=== PATIENT | female | born 1945 | race African-American/Black ===

== ENCOUNTER 2024-09-22 11:37 | Outpatient (AMB) | payer MEDICARE, SELFPAY ==
--- NOTE | 2024-09-22 11:48 | HO.NEPHOV_ITS ---
Vital Signs 09/22/24 11:51 Height 5 ft 5 in Weight 216 lb BMI 35.9 BP 130/60 Blood Pressure Location Rt brachial Position Sitting Pulse 52 Pulse Source Pulse Oximeter Pulse Oximetry (%) 96 Oxygen Delivery Method Room Air Intake Visit Reasons: ENP:CKD- Conf w/Caregiver Household Appliance Assembler Required: No Accompanied by: Other Relationship Allergies amoxicillin [From Augmentin] Allergy (Verified 09/22/24 11:51) Diarrhea clavulanic acid [From Augmentin] Allergy (Verified 09/22/24 11:51) Diarrhea Iodinated Contrast Media Allergy (Verified 09/22/24 11:51) Unknown morphine Allergy (Verified 09/22/24 11:51) Unknown Swuexsi-RMT-EvE Reductase Inhibitor Allergy (Verified 09/22/24 11:51) Unknown HPI Comments Details: I had the privilege of seeing Peyton in consultation for recent rise in serum creatinine on a back drop of CKD. She has H/O vascular dementia as well as DM and HTN. She has been having edema and takes Vitamin C daily. She is on SGLT2i as well as ARB. She does not have any nausea, vomiting, diarrhea, PND, orthopnea or orthostatic symptoms. She does not take NSAID's. She does not maintain good hydration. She does not have any epistaxis, photosensitivity, hematuria, recent antibiotic intake, joint swelling, skin rashes. She does not have any CAD, CVA, CHF or documented PAD. Recently her serum creatinine has gone up to 1.42 [facility] Medical History (Updated 09/22/24 @ 12:07 by Jared Duarte MD) Alzheimer dementia Vascular dementia ERICK (generalized anxiety disorder) Colon polyp Hyperlipidemia Hypertension, benign Hypothyroidism Type 2 diabetes mellitus Cardiac murmur Surgical History (Updated 09/22/24 @ 11:51 by Rebecca Corral MA) H/O lumpectomy History of hysterectomy Family History (Updated 09/22/24 @ 11:49 by Rebecca Corral MA) Mother Hypertension Social History (Updated 09/22/24 @ 11:49 by Rebecca Corral MA) Alcohol intake: former Patient Tobacco Use Status: Former Tobacco user Review of Systems Const All systems reviewed & are unremarkable except as noted in HPI and below Physical Exam Vital Signs: Last Vital Signs Pulse 52 09/22/24 11:51 BP 130/60 09/22/24 11:51 Pulse Ox 96 09/22/24 11:51 Oxygen Delivery Method Room Air 09/22/24 11:51 BMI result Body Mass Index 35.9 Const General: comfortable and no acute distress Orientation/consciousness: patient oriented x3 HEENT Head: Yes normocephalic Mouth: Normal oral and palatal mucosa present Eyes EOM: EOMs intact bilaterally Neck Neck: Yes supple Resp Auscultation: clear to auscultation bilaterally Cardio Jugular venous distension: no JVD Rate: regular rate GI Palpation (GI): Soft to palpation Auscultation: normal bowel sounds General: Yes no CVA tenderness Back/Spine/Pelvis Back: no CVA tenderness Skin General skin exam: no rashes or lesions noted Neuro General: patient oriented x3 and moves all extremities Extrem General: Yes no pedal edema Results Reviewed Nephrology Results: No Data to Display Assessment & Plan Assessment & Plan (1) CKD stage 3a, GFR 45-59 ml/min: Code(s): N18.31 - Chronic kidney disease, stage 3a Category: Medical (2) Hypertension, benign: Code(s): I10 - Essential (primary) hypertension Category: Medical Plan 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 She recently had rise in serum creatinine due to tubular injury due to poor PO intake and being on ARB at the same time. Her UO is good and there is no reason to suspect obstructive uropathy. Even though GN & AIN can be considered in the differentials, it unlikely. She is on ARB as well as semaglutide. She should maintain good hydration. I ordered follow up blood work. Her mild edema could be due to Amlodipine. I shall back off on her ARB if her serum creatinine rises. I did not make any medication changes today but rather discussed all these with her and person who accompanied her. F/U given Orders: Orders Protein Creatinine Ratio, Ur 3 Months N18.31 - Chronic kidney disease, stage 3a, I10 - Essential (primary) hypertension Electrolytes 3 Months N18.31 - Chronic kidney disease, stage 3a, I10 - Essential (primary) hypertension Immunofixation Pnl, Serum 3 Months N18.31 - Chronic kidney disease, stage 3a, I10 - Essential (primary) hypertension Vitamin D 25-OH Total 3 Months N18.31 - Chronic kidney disease, stage 3a, I10 - Essential (primary) hypertension Creatinine 3 Months N18.31 - Chronic kidney disease, stage 3a, I10 - Essential (primary) hypertension Blood Urea Nitrogen 3 Months N18.31 - Chronic kidney disease, stage 3a, I10 - Essential (primary) hypertension Calcium 3 Months N18.31 - Chronic kidney disease, stage 3a, I10 - Essential (primary) hypertension Parathyroid Hormone Intact 3 Months N18.31 - Chronic kidney disease, stage 3a, I10 - Essential (primary) hypertension Coding Level of Care Code New Pt Level 4 (13865) Diagnoses CKD stage 3a, GFR 45-59 ml/min N18.31 Hypertension, benign I10
[2024-09-22 11:51] VITALS: BP 130/60; PULSE 52; O2SAT 96; BMI 35.9
--- OUTSIDE RECORDS SUMMARY | 2024-09-22 14:16 | XMS_ITS | Clinical Summary ---
Author Organization [facility] Address [address] [place] [address] Care Team Providers Care Remote Encoding Center Manager Name Role Phone Juvenal Valadez MD Primary Care Provider [phone] Allergies Active Allergy Reactions Criticality Noted Date Comments Iodinated Contrast Media Rash/Dermatitis Medium 2015 Morphine Rash/Dermatitis Medium 06/05/2016 Medications Medication Sig Dispensed Refills Start Date End Date Status exemestane (AROMASIN) 25 MG tablet Take 25 mg by mouth daily. 2 05/14/2016 Active Multiple Vitamin (MULTIVITAMIN) tablet Take by mouth daily. Active vitamin E 400 UNIT capsule Take 400 Units by mouth daily. Active cholecalciferol (VITAMIN D3) 1000 UNITS tablet Take 1,000 Units by mouth daily. Active Probiotic Product (PROBIOTIC ADVANCED PO) Take by mouth daily. Active cyanocobalamin (VITAMIN B-12) 250 MCG tablet Take 250 mcg by mouth daily. Active levoFLOXacin (LEVAQUIN) 500 MG tablet Take 500 mg by mouth daily. 0 06/18/2016 Active Social History Tobacco Use Types Packs/Day Years Used Date Smoking Tobacco: Former Cigarettes Alcohol Use Standard Drinks/Week Comments No 0 (1 standard drink = 0.6 oz pur e alcohol) Sex and Gender Information Value Date Recorded Sex Assigned at Not on file Gender Identity Not on file Sexual Orientation Not on file Last Filed Vital Signs Vital Sign Reading Time Taken Comments Blood Pressure 176/84 07/06/2016 11:17 AM EST Pulse 62 07/06/2016 11:17 AM EST Temperature 36.5 ??C (97.7 ??F) 07/06/2016 11:[address] Respiratory Rate 18 07/06/2016 11:17 AM EST Oxygen Saturation 97% 07/06/2016 11:17 AM EST Inhaled Oxygen Concentration - - Weight 95.3 kg (210 lb) 07/06/2016 9:00 AM EST Height 166.4 cm (5' 5.5 ) 07/06/2016 9:00 AM EST Body Mass Index 34.41 07/06/2016 9:00 AM EST Plan of Treatment Health Maintenance Due Date Last Done Comments Hepatitis C Virus Screening 1945 DTaP/Tdap/Td Vaccines (1 - Tdap) 1965 Pneumococcal Vaccines 50+ (1 of 1 - PCV) 1996 Zoster (Shingles) Vaccine (1 of 2) 1996 DXA Bone Density (Females,Ages 65 and older) 10/08/2011 RSV Vaccine 60 years and older and Patients (1 - 1-dose 75+ series) 2021 Influenza Vaccine 02/27/2024 COVID-19 Vaccine ( - 2023- season) 2024 Mammogram Discontinued 08/19/2015, 10/0 07/2013, 04/23/2014, Additional history exists Colonoscopy Discontinued 07/06/2016, 07/06/2016 Hepatitis B Vaccines Aged Out No long er eligible based on patient's age to complete this topic Procedures Procedure Name Priority Date/Time Associated Diagnosis Comments DIGITAL MAMMO BILAT SCREENING (WDC)-W Routine 08/19/2015 12:52 PM EST from Last 3 Months or Most Recently Relevant to Health Maintenance Results * DIGITAL MAMMO BILAT SCREENING (WDC)-W (08/19/2015 12:52 PM EST) Anatomical Region Laterality Modality Other 08/19/2015 12:5 2 PM EST Narrative 08/17/2015 2:51 PM EST Final Report CLINICAL INDICATIONS: ?? ROUTINE [facility]012 - DIGITAL MAMMO BILAT SCREENING ??- Aug 17 2015 ??3:03PM ?? Acc#: [id number] RESULT: History: ??ROUTINE Exam: Bilateral digital mammography Comparison: April 28, 2014 studies dating back toS2008 Findings: Full field digital imaging of both breast performed. There is a mixture of fibroglandular tissue present bilaterally (ACR BiRad breast density category B). Within the upper-outer aspect of the right breast middle depththere is an enlarging suspicious looking spiculated mass with pleomorphic microcalcifications measuring approximately 3 x 1.5 cm in size. There is now also seen to be a rounded 6 mm density about the superior aspect of the right breast with the appearance of a possible infiltrated lymph node. Biopsy had been recommended at time of previous diagnostic mammogram of April 2014. No suspicious left breast findings. IMPRESSION: Very suspicious right breast mass for which further evaluation with spot magnification films and ultrasound recommended if patient is candidate for therapy. Radiology staff will contact the patient to obtain this study. BI-RADS 0, incomplete, needs additional imaging. Computer aided diagnostics used for study (CAD) Interpreting Physician: ??KALE GREGORY M.D. Procedure Note Provider, MD Erich - 11/16/2015 Final Report CLINICAL INDICATIONS: ROUTINE [facility]012 - DIGITAL MAMMO BILAT SCREENING - Aug 17 2015 3:03PM Acc#: [id number] RESULT: History: ROUTINE Exam: Bilateral digital mammography Comparison: April 28, 2014 studies dating back 2008 Findings: Full field digital imaging of both breast performed. There is a mixtureof fibroglandular tissue present bilaterally (ACR BiRad breast densitycategory B). Within the upper-outer aspect of the right breast middle depththereis an enlarging suspicious looking spiculated mass with pleomorphic microcalcifications measuring approximately 3 x 1.5 cm in size. There isnow also seen to be a rounded 6 mm density about the superior aspect of theright breast with the appearance of a possible infiltrated lymph node. Biopsyhad been recommended at time of previous diagnostic mammogram of April2014. No suspicious left breast findings. IMPRESSION: Very suspicious right breast mass for which further evaluation with spot magnification films and ultrasound recommended if patient is candidatefor therapy. Radiology staff will contact the patient to obtain this study. BI-RADS 0, incomplete, needs additional imaging. Computer aided diagnostics used for study (CAD) Interpreting Physician: KALE GREGORY M.D. Conversion Provider MD [facility] from Last 3 Months or Most Recently Relevant to Health Maintenance Advance Directives * Full Code (Latest Code Status on File) Date Activated Date Inactivated Comments 07/06/2016 9:25 AM 07/06/2016 2:06 PM Care Teams Remote Encoding Center Manager Relationship Specialty Start Date End Date Juvenal Valadez MD [address] [place] [address] PCP - General Internal Medicine 03/07/16
--- OUTSIDE RECORDS SUMMARY | 2024-09-22 14:16 | XMS_ITS ---
Author Organization [facility] Address [address] [place] [id number] Care Team Providers Care Network Engineer Administrator Name Role Phone JASSIAmberSAMANTHA Primary Care Provider [phone] REASON FOR VISIT Letter Revision Encounters Encounter Location Date Provider Diagnosis [address] [address] 09/03/2024 SAMANTHA HENSON Plan Of Treatment Next Appt Details Provider Name:SAMANTHA HENSON , 11/11/2024 01:15:00 PM, [address] [place] [address], [place], [phone], Progress Notes * MITA MUJICAOB: (78 yo F)Acc No.[id number]:09/03/2024 Patient:?LINDSAY MUJICA :1945???Age:78 Y???Sex:Female Address:[address] [place] [phone] * true * Date:? Generated for Printi virgil/Savanna/eTransmitting on:?09/22/2024 02:16 PM EST
--- OUTSIDE RECORDS SUMMARY | 2024-09-22 14:16 | XMS_ITS ---
Author Organization [facility] Address [address] [place] [id number] Care Team Providers Care Department Clinician Name Role Phone SAMANTHA HENSON Primary Care Provider [phone] REASON FOR VISIT KIDNEY Encounters Encounter Location Date Provider Diagnosis [facility] [address] [address] 08/17/2024 SAMANTHA HENSON Plan Of Treatment Next Appt Details Provider Name:SAMANTHA HENSON , 11/11/2024 01:15:00 PM, [address] [place] [address] [address], [place], [address], Progress Notes * MITA MUJICAOB: (78 yo F)Acc No.[id number]:08/17/2024 Patient:?LINDSAY MUJICA :1945???Age:78 Y???Sex:Female Address:[address] [place] [phone] * true * Date:? Generated for Printi virgil/Savanna/eTransmitting on:?09/22/2024 02:15 PM EST
--- OUTSIDE RECORDS SUMMARY | 2024-09-22 14:16 | XMS_ITS | Encounter Summary ---
Author Organization [facility] Address [address] [place] [address] Care Team Providers Care Tab Builder Name Role Phone Juvenal Valadez MD Primary Care Provider [phone] Encounter Details Date Type Department Care Team (Late st Contact Info) Description 02/09/2016 Scanned Document [facility] General Surgery [place] [phone] Edward Fang MD Social History Tobacco Use Types Packs/Day Years Used Date Smoking Tobacco: Never Assessed Sex and Gender Information Value Date Recorded Sex Assigned at Not on file Gender Identity Not on file Sexual Orientation Not on file documented as of this encounter Plan of Treatment Not on file documented as of this encounter Visit Diagnoses Not on filedocumented in this encounter Care Teams Tab Builder Relationship Specialty Start Date End Date Juvenal Valadez MD [address] [place] [address] PCP - General Internal Medicine 03/07/16 documented as of this encounter
--- OUTSIDE RECORDS SUMMARY | 2024-09-22 14:16 | XMS_ITS | Encounter Summary ---
Author Organization [facility] Address [address] [place] [address] Care Team Providers Care Anthropometrist Name Role Phone Juvenal Valadez MD Primary Care Provider [phone] Encounter Details Date Type Department Care Team (Late st Contact Info) Description 06/05/2016 Prep for Surgery [facility] General Surgery [place] [phone] Edward Fang MD Social History Tobacco Use Types Packs/Day Years Used Date Smoking Tobacco: Never Alcohol Use Standard Drinks/Week Comments Not Asked 0 (1 standard drink = 0.6 oz pur e alcohol) Sex and Gender Information Value Date Recorded Sex Assigned at Not on file Gender Identity Not on file Sexual Orientation Not on file documented as of this encounter Plan of Treatment Not on file documented as of this encounter Visit Diagnoses Not on filedocumented in this encounter Care Teams Anthropometrist Relationship Specialty Start Date End Date Juvenal Valadez MD [address] [place] [address] PCP - General Internal Medicine 03/07/16 documented as of this encounter
--- OUTSIDE RECORDS SUMMARY | 2024-09-22 14:16 | XMS_ITS | Encounter Summary ---
Author Organization [facility] Address [address] [place] [address] Care Team Providers Care Child Care Leader Name Role Phone Juvenal Valadez MD Primary Care Provider [phone] Encounter Details Date Type Department Care Team (Late st Contact Info) Description 08/24/2016 Scanned Document [facility] General Surgery [place] [phone] Edward Fang MD Social History Tobacco Use [...] on filedocumented in this encounter Care Teams Child Care Leader Relationship Specialty Start Date End Date Juvenal Valadez MD [address] [place] [address] PCP - General Internal Medicine 03/07/16 documented as of this encounter
--- OUTSIDE RECORDS SUMMARY | 2024-09-22 14:16 | XMS_ITS | Encounter Summary ---
Author Organization [facility] Address [address] [place] [address] Care Team Providers Care Hydrometeorology Teacher Name Role Phone Juvenal Valadez MD Primary Care Provider Encounter Details Date Type Department Care Team (Late st Contact Info) Description 05/30/2016 Scanned Document [facility] General Surgery [place] [phone] Edward Fang MD Social History Tobacco Use [...] on filedocumented in this encounter Care Teams Hydrometeorology Teacher Relationship Specialty Start Date End Date Juvenal Valadez MD [address] [place] [address] PCP - General Internal Medicine 03/07/16 documented as of this encounter
== END 2024-09-22 12:14 | disposition home or self-care (01) ==
PROVIDERS: PCP Hospitalist; Referring Provider Hospitalist; Visit Provider Internal Medicine Nephrology
DX: N18.31 Chronic kidney disease, stage 3a (principal); I10 Essential (primary) hypertension
CPT/HCPCS: 99204

== ENCOUNTER → 2024-09-22 11:37 | Outpatient (BNVA) | payer MEDICARE, SELFPAY | PROVIDERS: PCP Hospitalist; Referring Provider Hospitalist; Visit Provider Internal Medicine Nephrology | DX: E11.22 Type 2 diabetes mellitus with diabetic chronic kidney disease (principal); I12.9 Hypertensive chronic kidney disease with stage 1 through stage 4 chronic kidney disease, or unspecified chronic kidney disease; N18.31 Chronic kidney disease, stage 3a | CPT/HCPCS: 99202 ==

== ENCOUNTER 2024-12-22 12:06 | Outpatient (AMB) | payer MEDICARE, SELFPAY ==
--- NOTE | 2024-12-22 12:14 | HO.NEPHOV_ITS ---
Vital Signs 12/22/24 12:17 Height 5 ft 5 in Weight 214 lb BMI 35.6 BP 114/60 Blood Pressure Location Lt brachial Position Sitting Pulse 52 Pulse Source Pulse Oximeter Pulse Oximetry (%) 93 Oxygen Delivery Method Room Air Intake Visit Reasons: 3mon follow-up w/labs-LVM Insurance Agency Manager Required: No Accompanied by: Other Relationship Allergies amoxicillin [From Augmentin] Allergy (Verified 12/22/24 12:16) Diarrhea clavulanic acid [From Augmentin] Allergy (Verified 12/22/24 12:16) Diarrhea Iodinated Contrast Media Allergy (Verified 12/22/24 12:16) Unknown morphine Allergy (Verified 12/22/24 12:16) Unknown Hhmsfbf-XZM-RjM Reductase Inhibitor Allergy (Verified 12/22/24 12:16) Unknown HPI Comments Details: I had the privilege of seeing Peyton in follow up for DIONNE on CKD. She has H/O vascular dementia as well as DM and HTN. She has been having edema and takes Vitamin C daily. She is on SGLT2i as well as ARB. She does not have any nausea, vomiting, diarrhea, PND, orthopnea or orthostatic symptoms. She does not take NSAID's. She does not maintain good hydration. She does not have any epistaxis, photosensitivity, hematuria, recent antibiotic intake, joint swelling, skin rashes. She does not have any CAD, CVA, CHF or documented PAD. Recently her serum creatinine had gone up to 1.42 but has settled to baseline now. [facility] Medical History (Updated 09/22/24 @ 12:07 by Jared Duarte MD) Alzheimer dementia Vascular dementia ERICK (generalized anxiety disorder) Colon polyp Hyperlipidemia Hypertension, benign Hypothyroidism Type 2 diabetes mellitus Cardiac murmur Surgical History H/O lumpectomy History of hysterectomy Family History Mother Hypertension Social History Alcohol intake: former Patient Tobacco Use Status: Former Tobacco user Review of Systems Const All systems reviewed & are unremarkable except as noted in HPI and below Physical Exam Vital Signs: Last Vital Signs Pulse 52 12/22/24 12:17 BP 114/60 12/22/24 12:17 Pulse Ox 93 12/22/24 12:17 Oxygen Delivery Method Room Air 12/22/24 12:17 BMI result Body Mass Index 35.6 Const General: comfortable and no acute distress HEENT Head: Yes normocephalic Mouth: Normal oral and palatal mucosa present Eyes EOM: EOMs intact bilaterally Neck Neck: Yes supple Resp Auscultation: clear to auscultation bilaterally Cardio Jugular venous distension: no JVD Rate: regular rate GI Palpation (GI): Soft to palpation Auscultation: normal bowel sounds General: Yes no CVA tenderness Back/Spine/Pelvis Back: no CVA tenderness Skin General skin exam: no rashes or lesions noted Neuro General: moves all extremities Results Reviewed Nephrology Results: No Data to Display Assessment & Plan Assessment & Plan (1) CKD stage 3a, GFR 45-59 ml/min: Code(s): N18.31 - Chronic kidney disease, stage 3a Category: Medical (2) Hypertension, benign: Code(s): I10 - Essential (primary) hypertension Category: Medical Plan 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 She recently had rise in serum creatinine due to tubular injury due to poor PO intake and being on ARB at the same time, which has resolved. Her UO is good and there is no reason to suspect obstructive uropathy. She is on ARB as well as semaglutide. She should maintain good hydration. I ordered follow up blood work. I did not make any medication changes today but rather discussed all these with her and person who accompanied her. F/U given Orders: Orders Blood Urea Nitrogen 6 Months I10 - Essential (primary) hypertension, N18.31 - Chronic kidney disease, stage 3a Creatinine 6 Months I10 - Essential (primary) hypertension, N18.31 - Chronic kidney disease, stage 3a Electrolytes 6 Months I10 - Essential (primary) hypertension, N18.31 - Chronic kidney disease, stage 3a Coding Level of Care Code Est Pt Level 4 (86608) Diagnoses CKD stage 3a, GFR 45-59 ml/min N18.31 Hypertension, benign I10
[2024-12-22 12:17] VITALS: BP 114/60; PULSE 52; O2SAT 93; BMI 35.6
--- OUTSIDE RECORDS SUMMARY | 2024-12-22 12:29 | XMS_ITS | Patient Health Record ---
Author Organization [facility] Address [address] [facility] [address] [place] [address] Care Team Providers Care Childcare Administrator Name Role Phone SAMANTHA HENSON Primary Care Provider MekhighadaBradley shinerubinagreg Unavailable [phone] Allergies Allergen (clinical drug ingredient) Drug/Non Drug Allergy documented on EMR Reaction Allergy Type Onset Date Status IV Dye (uncoded) Unknown Allergy Act harley amoxicillin / clavulanate Augmentin diarrhea Drug Allergy Active morphine Morphine Sulfate Unknown Drug Allergy Active Statins Support Unknown Drug Allergy A ctive Results Component Value Reference Range Notes LP+Non-HDL Cholesterol-[id number] 5 Reviewed date:02/27/2024 04:10:08 PM Interpretation: Performing Lab:[facility] [place], [address] [facility], Phone - [phone], Director - MDJodry Notes/Report: Cholesterol, Total 186 100-199 mg/dL Triglycerides 176 0-149 mg/dL HDL Cholesterol 40 >39 mg/dL VLDL Cholesterol Adán 31 5-40 mg/dL LDL Chol Calc ([facility]) 115 0-99 mg/dL Non-HDL Cholesterol 146 0-129 mg/dL Hgb A1c with eAG Estimation- [id number] Reviewed date:02/27/2024 04:09:53 PM Interpretation: Performing Lab:[facility], [address] [facility], [place], Phone - [phone], Director - MDJodry Notes/Report: Hemoglobin A1c 8.7 4.8-5.6 % . Prediabetes: 5.7 - 6.4 Diabetes: >6.4 Glycemic control for adults with diabetes: <7.0 Estim. Avg Glu (eAG) 203 Glucose-[id number] Reviewed date:02/27/2024 04:09:36 PM Interpretation: Performing [facility], [address] [place] [address], Phone - [phone], Director - Lucho Notes/Report: Glucose 187 70-99 mg/dL Basic Metabolic Panel (7)-[id number] Reviewed date:11/11/2024 01:39:23 PM Interpretation: Performing Lab:[facility], [address] [place] [address], Phone - [phone], Director - Lucho Notes/Report: Glucose 115 70-99 mg/dL BUN 29 8-27 mg/dL Creatinine 0.96 0.57-1.00 mg/dL eGFR 61 >59 mL/min/1.73 BUN/Creatinine Ratio 30 12-28 Sodium 143 134-144 mmol/L Potassium 4.5 3.5-5.2 mmol/L Chloride 109 96-106 mmol/L Carbon Dioxide, Total 15 20-29 mmol/L Urinalysis, Routine-[id number] Reviewed date:11/11/2024 01:38:59 PM Interpretation: Performing Lab:[facility], [address] [place] [address], Phone - [phone], Director - Lucho Notes/Report: Specific [place] TNP Test not performed. Patient was unable to provide a self-collected specimen for the requested testing. The following test(s) were not performed: pH TNP Test not perfor med Protein TNP Test not perfor med Glucose TNP Test not perfor med Ketones TNP Test not perfor med Urinalysis, Routine-[id number] Reviewed date:11/11/2024 01:39:53 PM Interpretation: Performing Lab:[facility], [address] [place] [address], Phone - [phone], Director - Lucho Notes/Report: Specific [place] TNP Test not performed. Patient was unable to provide a self-collected specimen for the requested testing. The following test(s) were not performed: Hemoglobin T6o-[id number] Reviewed date:11/11/2024 01:39:39 PM Interpretation: Performing Lab:[facility], [address] [place] [address], Phone - [phone], Director - Lucho Notes/Report: Hemoglobin A1c 7.0 4.8-5.6 % . Prediabetes: 5.7 - 6.4 Diabetes: >6.4 Glycemic control for adults with diabetes: <7.0 Request Problem TNP Test not performed. Patient was unable to provide a self-collected specimen for the requested testing. The following test(s) were not performed: TEST: [id number] Urinalysis, Routine Basic Metabolic Panel ([id number] Reviewed date:06/04/2024 01:37:54 PM Interpretation: Performing Lab:[facility] [place], [address] [place] [address], Phone - [phone], Director - MDJodry Notes/Report: Glucose 137 70-99 mg/dL BUN 28 8-27 mg/dL Creatinine 1.42 0.57-1.00 mg/dL eGFR 38 >59 mL/min/1.73 BUN/Creatinine Ratio 20 12-28 Sodium 142 134-144 mmol/L Potassium 4.6 3.5-5.2 mmol/L Chloride 105 96-106 mmol/L Carbon Dioxide, Total 20 20-29 mmol/L Calcium 9.5 8.7-10.3 mg/dL TSH+Free [id number] Reviewed date:06/03/2024 07:31:45 AM Interpretation: Performing Lab:[facility] [place], [address] [place] [address], Phone - [phone], Director - MDJodry Notes/Report: TSH 1.660 0.450-4.500 uIU/mL T4,Free(Direct) 1.05 0.82-1.77 ng/dL CBC, Platelet, No Differenti al-[id number] Reviewed date:06/04/2024 01:37:41 PM Interpretation: Performing Lab:[facility] [place], [address] [place] [address], Phone - [phone], Director - MDJodry Notes/Report: WBC 7.8 3.4-10.8 x10E3/uL RBC 4.53 3.77-5.28 x10E6/uL Hemoglobin 10.3 11.1-15.9 g/dL Hematocrit 34.3 34.0-46.6 % MCV 76 79-97 fL MCH 22.7 26.6-33.0 pg MCHC 30.0 31.5-35.7 g/dL RDW 17.0 11.7-15.4 % Platelets 342 150-450 x10E3/uL Urinalysis, Routine-[id number] Reviewed date:12/16/2024 07:21:20 AM Interpretation: Performing Lab:[facility], [address] [facility], [place], Phone - [phone], Director - Lucho Notes/Report: Specific [place] 1.023 1.005-1.030 pH 5.5 5.0-7.5 Urine-Color Yellow Yellow Appearance Cloudy Clear WBC Esterase 2+ Negative Protein 1+ Negative/Trace Glucose Negative Negative Ketones Negative Negative Occult Blood Negative Negative Bilirubin Negative Negative Urobilinogen,Semi-Qn 0.2 0.2-1.0 mg/dL Nitrite, Urine Positive Negative Microscopic Examination See below: Micr oscopic was indicated and was performed. WBC >30 0 - 5 /hpf RBC 0-2 0 - 2 /hpf Epithelial Cells (non renal) >10 0 - 10 /hpf Casts None seen None seen /lpf Bacteria Many None seen/Few Hemoglobin [id number] Reviewed date:06/04/2024 01:37:31 PM Interpretation: Performing Lab:[facility] [place], [address] [facility], [place], Phone - [phone], Director - Lucho Notes/Report: Hemoglobin A1c 7.3 4.8-5.6 % . Prediabetes: 5.7 - 6.4 Diabetes: >6.4 Glycemic control for adults with diabetes: <7.0 Reason For Referral Reason Evaluation and manag ement Diagnosis 1 Diabetes mellitus du e to underlying condition with diabetic neuropathy, unspecified (E08.40) Referral Organization [facility] Referring Provider First Name Phoebe Referring Provider Last Name Evonne Referred Provider Specialty Podiatry General Notes Referral sent to Louis hussein [facility] [place] [facility].Bruno Latraya 03/04/2024 08:15:48 AM > Referral Priority Urgent Reason Evaluation and manag ement Diagnosis 1 Anxiety (F41.9) Diagnosis 2 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 Patel - Dept will call patient for scheduling.Bruno Latraya 03/04/2024 08:21:51 AM > Referral Priority Routine Reason Evaluation and manag ement VNA services to ensure medication compliance and monitor glucose and BP as patient has memory problem Diagnosis 1 Unspecified dementia , unspecified severity, without behavioral disturbance, psychotic disturbance, mood disturbance, and anxiety (F03.90) Diagnosis 2 Complaints of memory disturbance (R41.3) Referral Organization [facility] Referring Provider First Name Phoebe Referring Provider Last Name Evonne Referred Provider Specialty Other Medica l [facility] General Notes Referral sent TO [facility] ra - Dept will call patient for scheduling., Silvana Carr 03/04/2024 08:23:45 AM > Referral Priority Urgent Reason Evaluation and manag ement Diagnosis 1 Unsteadiness on feet (R26.81) Diagnosis 2 Weakness (R53.1) Referral Organization [facility] Referring Provider First Name SAMANTHA Referring Provider Last Name [facility] Referring Provider [facility] Referred Provider Specialty Physical The rapist General Notes Referral sent TO [facility] Physical Therapy in [place] - Office will call patient for scheduling., Silvana Carr 04/22/2024 04:02:07 PM > Referral Priority Routine Reason CKD STAGE 3B- DR KOLTON JONES Referral Organization [facility] Referring Provider First Name SAMANTHA Referring Provider Last Name [facility] Referring Provider [facility] Referred Provider Specialty Nephrology Referral Priority Routine Reason Chronic kidney disea se - Dr Duarte please evaluate and treat Diagnosis 1 Chronic kidney disea se, unspecified (N18.9) Referral Organization [facility] Referring Provider First Name SAMANTHA Referring Provider Last Name [facility] Referring Provider [facility]ity [facility] Referred Provider Specialty Nephrology General Notes REFERRAL WAS FAXED [facility]. PLEASE CONTACT PATIENT FOR SCHEDULING, Lizzy Lee 08/17/2024 02:39:25 PM > Referral Priority Routine Medications Medication SIG (Take, Route, Frequency, Duration) Notes Start Date End Date Status Telmisartan 80 MG TAKE 1 TABLET BY MICHAEL EVERY DAY FOR 90 DAYS Orally Once a day for 90 days Active one touch ultra blue in vitro strip - test blood sugar daily Dx: E11.9 in vitro once daily for 30 days 09/30/2018 Active Vitamin B-1 50 MG 1 tablet Orally Once a day for 30 days Active Dibspace Ultra 2 w/Device use to check b lood sugars Dx: E11.9 Once a day for 1 Active RagingWireTouch Ultra Test - USE TO TEST BLOOD SUGARS EVERY DAY for 50 Active busPIRone HCl 5 MG 1 tablet Orally Twic e a day for 90 days Active one touch delica lancets - test blood sugars daily dx: E11.9 in vitro once daily for 30 days 09/30/2018 Active Pravastatin Sodium 40 MG 1 tablet Orally Once a day for 30 days Active D3 Super Strength 50 MCG (2000 UT) TAKE 1 CAPSULE BY MOUTH TWICE A DAY for 90 days Active Glimepiride 4 MG 1 tablet with breakf ast or the first main meal of the day Orally Once a day for 90 days Active Probiotic - as directed Orally o nce a day occasionally for 30 days Active Ezetimibe 10 MG TAKE 1 TABLET BY MICHAEL TH EVERY DAY for 84 Active Carvedilol 3.125 MG TAKE 1 TABLET BY MICHAEL TH TWICE A DAY WITH FOOD for 28 Active Voltaren 1 % as directed External ly twice a day for 30 days 09/16/2020 Active Osteo Bi-Flex Adv Double St - as directed Orally daily as needed for 30 days Active amLODIPine Besylate 10 MG TAKE 1 TABLET BY MOUTH EVERY DAY FOR 90 DAYS for 84 Active Gemfibrozil 600 MG TAKE 1 TABLET 30 MINUTES BEFORE MORNING AND EVENING MEALS ORALLY TWICE A DAY 30 DAYS for 30 days Active Chegginuch Ultra - USE TO TEST BLOOD SUGARS EVERY DAY for 50 Active Memantine HCl ER 14 MG TAKE 1 CAPSULE BY MOUTH EVERY DAY FOR 30 DAYS for 84 Active Januvia 100 MG TAKE 1 TABLET BY MICHAEL TH EVERY DAY FOR 30 DAYS for 28 Active Escitalopram Oxalate 20 MG TAKE 1 TABLET BY MOUTH EVERY DAY for 28 Active Depend Underwear X-Large - Change up to 4 times daily DX: N39.46 for 90 days 06/10/2024 Active Assurance Underpads - Change daily DX: N 39.46 for 90 days 06/10/2024 Active hydrALAZINE HCl 25 MG 1 tablet with food Orally Three times a day for 90 days Active FreeStyle Lite Test - as directed In Vit ro to check blood sugars twice a day for 90 days 06/04/2024 Active Haloperidol 0.5 MG TAKE 1 TABLET BY MICHAEL TH EVERY DAY for 30 days Not-Taking FreeStyle Lancets - as directed to check blood sugar Dx: E08.40 for 90 days 05/25/2024 Active Mirtazapine 15 MG TAKE 1 TABLET BY MICHAEL TH EVERY NIGHT AT BEDTIME DISCONTINUE MIRTAZAPINE 45MG AT NIGHT for 28 Active Benzonatate 100 MG 1 capsule as needed Orally Three times a day for 7 days 06/04/2024 Not-Taking Benzonatate 100 MG 1 capsule as needed Orally Three times a day for 7 days 06/09/2024 Not-Taking FreeStyle Lite w/Device as directed to c heck blood sugar Dx: E08.40 for 90 days 05/25/2024 Active Probiotic 250 MG 1 capsule Orally Onc e a day for 30 days Active FreeStyle Lite Test - as directed to loni ck blood sugar Dx: E08.40 In Vitro Once daily for 90 days 05/25/2024 Active FLUoxetine HCl 10 MG TAKE 1 CAPSULE BY M OUTH EVERY DAY for 28 Not-Taking Vitamin C 1000 MG TAKE 1 TABLET BY MICHAEL TH EVERY DAY FOR 90 DAYS for 28 Active Vitamin D3 50 MCG (2000 UT) 1 capsule Orally Once a day for 30 days Active Donepezil HCl 10 MG TAKE 1 TABLET BY MICHAEL TH EVERY DAY AT BEDTIME FOR 90 DAYS for 28 Active Magnesium Extra Strength 400 MG 1 capsule with food Orally Once a day for 90 days Active Levothyroxine Sodium 25 MCG 1 tablet in the morning on an empty stomach Orally Once a day for 90 days Active Rybelsus 14 MG 1 tablet at least 30 minutes before first food, beverage or other oral medicine of the day Orally Once a day for 30 days Active Immunizations Vaccine Route Administration Date Status Comme nts COVID Moderna Unknown 01/25/2021 Administered COVID Moderna Unknown 02/22/2021 Administered COVID Moderna Unknown 08/25/2021 Administered Fluzone High Dose 70678 IM Intramuscular 04/21/2024 Admini stered Social History Tobacco Use: Social History Observation Description Date Details (start date - stop date) Former Smoker NA - NA Tobacco Use/Smoking Question Answer Notes Are you a former smoker How long has it been since you last smoked? > 10 years Problems Problem Type SNOMED Code ICD Code Onset Dates Problem Status W/U Status Risk Notes Problem Tinea unguium (099393985) Tinea unguium (B35.1) Active confirmed Problem Tinea pedis (4872479) Tinea pedis (B35.3) Active confirmed Problem Anemia (955694744) Anemia, unspecified (D64.9) Active confirmed Problem Hypothyroidism (84640253) Hypothyroidism, unspecified (E03.9) Active confirmed Problem Diabetic neuropathy (410327940) Diabetes mellitus due to underlying condition with diabetic neuropathy, unspecified (E08.40) Active confirmed Problem Disorder due to type 2 diabetes mellitus (911790753) Type 2 diabetes mellitus with unspecified complications (E11.8) Active confirmed Problem Vitamin D deficiency (32422378) Vitamin D deficiency, unspecified (E55.9) Active confirmed Problem Morbid obesity (disorder) (599112792) Morbid (severe) obesity due to excess calories (E66.01) Active confirmed Problem Mixed hyperlipidemia (349450764) Mixed hyperlipidemia (E78.2) Active confirmed Problem Moderate recurrent major depression (98905908) Major depressive disorder, recurrent, moderate (F33.1) Active confirmed Problem Generalized anxiety disorder (67337741) Generalized anxiety disorder (F41.1) Active confirmed Problem Insomnia (326256826) Insomnia, unspecified (G47.00) Active confirmed Problem Sensorineural hearing loss (06195120) Unspecified sensorineural hearing loss (H90.5) Active confirmed Problem Pain in limb (08529915) Pain in left hand (M79.642) Active confirmed Problem Age-related osteoporosis (685921735) Age-related osteoporosis without current pathological fracture (M81.0) Active confirmed Problem Chronic kidney disease (481125768) Chronic kidney disease, unspecified (N18.9) Active confirmed Problem Heart murmur (finding) (53313231) Cardiac murmur, unspecified (R01.1) Active confirmed Problem Abnormal gait (58694570) Unsteadiness on feet (R26.81) Active confirmed Problem Fatigue (89299927) Other fatigue (R53.83) Active confirmed Problem Adult health examination (078744503) Encounter for general adult medical examination without abnormal findings (Z00.00) Active confirmed Problem Personal history of primary malignant neoplasm of breast (934309338) Personal history of malignant neoplasm of breast (Z85.3) Active confirmed Problem Essential hypertension (77123001) Essential (primary) hypertension (I10) Active confirmed Problem Amnesia (76921914) Complaints of memory disturbance (R41.3) Active confirmed Problem Anxiety (27520069) Anxiety (F41.9) Active confirmed Problem Dementia (94865887) Unspecified dementia, unspecified severity, without behavioral disturbance, psychotic disturbance, mood disturbance, and anxiety (F03.90) Active confirmed Vital Signs Heart Rate 65 /min 11/11/2024 Temperature 96.8 degrees Fahrenheit 11/11/2024 Blood pressure diastolic 72 mm Hg 11/11/2024 Oximetry 96 % 11/11/2024 Height 64.76 in 11/11/2024 Blood pressure systolic 130 mm Hg 11/11/2024 Weight 213.7 lbs 11/11/2024 BMI 35.82 kg/m2 11/11/2024 Encounters Encounter Location Date Provider Diagnosis [address] [address] 02/28/2024 Phoebe Douglass Diabetes mellitus du e to underlying condition with diabetic neuropathy, unspecified E08.40 ; Tinea unguium B35.1 ; Essential (primary) hypertension I10 ; Mixed hyperlipidemia E78.2 ; Anxiety F41.9 and Prolonged grief disorder F43.[address] [address] 03/06/2024 Phoebe Douglass Essential (primary) hypertension I10 and Complaints of memory disturbance R41.[address] [address] 04/21/2024 SAMANTHA HENSON Encounter for genera l adult medical examination without abnormal findings Z00.00 ; Essential (primary) hypertension I10 ; Mixed hyperlipidemia E78.2 ; Hypothyroidism, unspecified E03.9 ; Age-related osteoporosis without current pathological fracture M81.0 ; Diabetes mellitus due to underlying condition with diabetic neuropathy, unspecified E08.40 and Encounter for immunization Z23 [address] [address] 06/04/2024 SAMANTHA HENSON Type 2 diabetes mellitus with unspecified complications E11.8 ; Mixed hyperlipidemia E78.2 and Viral infection, unspecified B34.[address] [address] 07/15/2024 [facility] Diabetes mellitus du e to underlying condition with diabetic neuropathy, unspecified E08.40 ; Essential (primary) hypertension I10 ; Hypothyroidism, unspecified E03.9 ; Complaints of memory disturbance R41.3 ; Generalized anxiety disorder F41.1 ; Major depressive disorder, recurrent, moderate F33.1 and Anemia, unspecified D64.[address] [place] [address] 08/12/2024 [facility] Diabetes mellitus du e to underlying condition with diabetic neuropathy, unspecified E08.40 ; Essential (primary) hypertension I10 ; Hypothyroidism, unspecified E03.9 ; Complaints of memory disturbance R41.3 ; Generalized anxiety disorder F41.1 ; Major depressive disorder, recurrent, moderate F33.1 and Anemia, unspecified D64.[address] [place] [address] 11/11/2024 [facility] Diabetes mellitus du e to underlying condition with diabetic neuropathy, unspecified E08.40 ; Essential (primary) hypertension I10 ; Hypothyroidism, unspecified E03.9 ; Complaints of memory disturbance R41.3 ; Generalized anxiety disorder F41.1 ; Major depressive disorder, recurrent, moderate F33.1 and Anemia, unspecified D64.[address] [place] [address] 12/15/[address] [place] [address] 12/26/[address] [place] [address] 01/03/[address] [place] [address] 01/29/[address] [place] [address] 02/19/[address] [place] [address] 02/19/2024 [facility] [address] [facility] [address] [place] [address] 03/04/2024 [facility] [address] [facility] [address] [place] [address] 03/05/2024 [facility] [address] [facility] [address] [place] [address] 03/05/2024 [facility] [address] [facility] [address] [place] [address] 03/06/2024 [facility] [address] [facility] [address] [place] [address] 04/09/2024 [facility] [address] [facility] [address] [place] [address] 05/25/2024 [facility] [address] [facility] [address] [place] [address] 06/02/2024 [facility] Urgency of urination R39.15 [facility] [address] [facility] [address] [place] [address] 06/05/2024 [facility] Encounter for screen ing for respiratory disorder NEC Z13.83 [facility] [address] [facility] [address] [place] [address] 06/23/2024 [facility] [address] [facility] [address] [place] [address] 06/24/2024 [facility] [address] [facility] [address] [place] [address] 07/02/2024 [facility] [address] [facility] [address] [place] [address] 07/31/2024 [facility] [address] [facility] [address] [place] [address] 08/17/2024 [facility] [address] [facility] [address] [place] [address] 09/03/2024 SAMANTHA HENSON [facility] [address] [facility] [address] [place] [address] 12/16/2024 SAMANTHA HENSON Assessments Encounter Date Diagnosis (ICD Code) Assessment Notes Treatment Notes Treatment Clinical Notes Section Notes 02/28/2024 Diabetes mellitus due to underlying condition with diabetic neuropathy, unspecified (ICD-10 - E08.40) Mrs. Mujica is a 78-year-old lady with DM type II, hypertension, hyperlipidemia, hypothyroidism here for follow up on blood pressure. Plan is as follows: Type II diabetes mellitus. - Last A1c improved from 9.0 to 8.7.Fasting sugars also improved from 226 to 195, but are still high. We took her off on - She is noncompliant with low calorie diet. Continue Rybelsus 14 MG, Januvia 100 MG, and Glimepiride 4 MG. Referred to podiatry. Check A1c. Hypertension. -Blood pressure is still borderline high in the office today. She has memory issues. She has been eating out most of the time. Cut back on sodium intake. Advised appropriate hydration, cardio exercises and weight loss. Continue Amlodipine 10 MG and Telmisartan 80 MG. We will check BP in one week. Hyperlipidemia. -Triglycerides 157 which is high. She is noncompliant with medications and diet. Continue Pravastatin 10 40 MG restarted her on Zetia 10 MG, Gemfibrozil 600 MG. Hypothyroidism. -Continue Levothyroxine 25 MCG and advised to take it first thing in the morning on an empty stomach. Complaints of memory disturbance. -Her memory is declining and she will benefit from having someone to help with her medications. Advised to continue Donepezil 10 MG along with Memantine ER 14 MG. We will also refer patient to home VNA to ensure medication compliance. Insomnia. Anxiety -She is doing good on Mirtazapine to 45 MG and sleep hygiene discussed. - Referred patient to psychiatrist and started her on low dose Haldol. Vitamin D deficiency. -She is taking vitamin D supplements. I have rendered the services for this patient under direct supervision of Dr. Henson, who did not see the patient but was available upon request 02/28/2024 Tinea unguium (ICD-10 - B35.1) Mrs. Mujica is a 78-year-old lady with DM type II, hypertension, hyperlipidemia, hypothyroidism here for follow up on blood pressure. Plan is as follows: Type II diabetes mellitus. - Last A1c improved from 9.0 to 8.7.Fasting sugars also improved from 226 to 195, but are still high. We took her off on - She is noncompliant with low calorie diet. Continue Rybelsus 14 MG, Januvia 100 MG, and Glimepiride 4 MG. Referred to podiatry. Check A1c. Hypertension. -Blood pressure is still borderline high in the office today. She has memory issues. She has been eating out most of the time. Cut back on sodium intake. Advised appropriate hydration, cardio exercises and weight loss. Continue Amlodipine 10 MG and Telmisartan 80 MG. We will check BP in one week. Hyperlipidemia. -Triglycerides 157 which is high. She is noncompliant with medications and diet. Continue Pravastatin 10 40 MG restarted her on Zetia 10 MG, Gemfibrozil 600 MG. Hypothyroidism. -Continue Levothyroxine 25 MCG and advised to take it first thing in the morning on an empty stomach. Complaints of memory disturbance. -Her memory is declining and she will benefit from having someone to help with her medications. Advised to continue Donepezil 10 MG along with Memantine ER 14 MG. We will also refer patient to home [facility] to ensure medication compliance. Insomnia. Anxiety -She is doing good on Mirtazapine to 45 MG and sleep hygiene discussed. - Referred patient to psychiatrist and started her on low dose Haldol. Vitamin D deficiency. -She is taking vitamin D supplements. I have rendered the services for this patient under direct supervision of Dr. Henson, who did not see the patient but was available upon request 03/06/2024 Essential (primary) hypertension (ICD-10 - I10) Mrs. Mujica is a 78-year-old lady with DM type II, hypertension, hyperlipidemia, hypothyroidism here for follow up on blood pressure. BP is running high in the office today. Plan as follows: HTN: - BP is elevated for the second visit today. We have started patient on Carvedilol. Recheck BP in two weeks. Complaints of memory disturbances: - She is on the right medication, encouraged activities or games that helps with memory function. - She has her daughter and friend help her at home with ADLs. They state that it is unsafe for her to be home alone. - They are working on getting a [facility]. - We have referred to [facility] as well to ensure medication complaince. I have rendered the services for this patient under direct supervision of Dr. Henson, who did not see the patient but was available upon request 04/21/2024 Encounter for general adult medical examination without abnormal findings (ICD-10 - Z00.00) Mrs. Mujica is a 78-year-old lady with DM type II, hypertension, hyperlipidemia, hypothyroidism here for annual wellness visit. Plan is as follows: Type II diabetes mellitus. A1c 8.7. Fasting sugars 187. We took her off on Metformin due to diarrhea. She is not interested in insulin or GLP-1 injectables and insulin. Continue Rybelsus 14 MG, Januvia 100 MG, and Glimepiride 4 MG. Foot care discussed and she sees podiatry and ophthalmology. Check A1c. EKG is normal sinus rhythm at [address]pm with no acute ST or T wave changes, no bundle-branch blocks, normal intervals Hypertension. Blood pressure is still borderline high in the office today. She has memory issues and is noncompliant with her medications. Cut back on sodium intake. Advised appropriate hydration, cardio exercises and weight loss. Continue Amlodipine 10 MG and Telmisartan 80 MG. Hyperlipidemia. Triglycerides 176. LDL 115 Non HDL 146. She is noncompliant with medications. Continue Pravastatin 10 40 MG and Zetia 10 MG, Gemfibrozil 600 MG. Hypothyroidism. Continue Levothyroxine 25 MCG and advised to take it first thing in the morning on an empty stomach. Complaints of memory disturbance. Her memory is declining and she will benefit from having someone to help with her medications. Advised to continue Donepezil 10 MG along with Memantine ER 14 MG. Generalized anxiety disorder./depressi on She recently lost her and she is still on bereavement phase. We we will start her on Lexapro 10 mg and we stopped mirtazapine Insomnia. she is currently on haloperidol which helps with sleep and mood Vitamin D deficiency. She is taking Vitamin D supplements. Impacted cerumen. She can use mineral oil over the counter. Avoid using q-tips Class 2 obesity. Advised dietary restrictions and regimental exercise. Goal is to lose 5-6 lbs a month. Weakness and gait instability. Referred to physical therapy Eye screening. She sees her assistant farm operations manager regularly. Dental screening. She sees dentist regularly. Breast cancer screening. Ordered mammogram Immunizations. She is up-to-date on her COVID and influenza vaccinations. Screening blood work before next appointment. General health concerns discussed with patient. Scribe services used to formulate this note under HIPAA compliance and under [place] law mandated for scribe services. Patient aware of service. Verbal consent and written consent taken from the patient. Patient understands and verbalizes understanding of the scribes services and all questions answered regarding scribes services. Patient agrees to use of scribes services. 04/21/2024 Essential (primary) hypertension (ICD-10 - I10) Mrs. Mujica is a 78-year-old lady with DM type II, hypertension, hyperlipidemia, hypothyroidism here for annual wellness visit. Plan is as follows: Type II diabetes mellitus. A1c 8.7. Fasting sugars 187. We took her off on Metformin due to diarrhea. She is not interested in insulin or GLP-1 injectables and insulin. Continue Rybelsus 14 MG, Januvia 100 MG, and Glimepiride 4 MG. Foot care discussed and she sees podiatry and ophthalmology. Check A1c. EKG is normal sinus rhythm at 65 bpm with no acute ST or T wave changes, no bundle-branch blocks, normal intervals Hypertension. Blood pressure is still borderline high in the office today. She has memory issues and is noncompliant with her medications. Cut back on sodium intake. Advised appropriate hydration, cardio exercises and weight loss. Continue Amlodipine 10 MG and Telmisartan 80 MG. Hyperlipidemia. Triglycerides 176. LDL 115 Non HDL 146. She is noncompliant with medications. Continue Pravastatin 10 40 MG and Zetia 10 MG, Gemfibrozil 600 MG. Hypothyroidism. Continue Levothyroxine 25 MCG and advised to take it first thing in the morning on an empty stomach. Complaints of memory disturbance. Her memory is declining and she will benefit from having someone to help with her medications. Advised to continue Donepezil 10 MG along with Memantine ER 14 MG. Generalized anxiety disorder./depressi on She recently lost her and she is still on bereavement phase. We we will start her on Lexapro 10 mg and we stopped mirtazapine Insomnia. she is currently on haloperidol which helps with sleep and mood Vitamin D deficiency. She is taking Vitamin D supplements. Impacted cerumen. She can use mineral oil over the counter. Avoid using q-tips Class 2 obesity. Advised dietary restrictions and regimental exercise. Goal is to lose 5-6 lbs a month. Weakness and gait instability. Referred to physical therapy Eye screening. She sees her assistant farm operations manager regularly. Dental screening. She sees dentist regularly. Breast cancer screening. Ordered mammogram Immunizations. She is up-to-date on her COVID and influenza vaccinations. Screening blood work before next appointment. General health concerns discussed with patient. Scribe services used to formulate this note under HIPAA compliance and under [place] law mandated for scribe services. Patient aware of service. Verbal consent and written consent taken from the patient. Patient understands and verbalizes understanding of the scribes services and all questions answered regarding scribes services. Patient agrees to use of scribes services. 06/05/2024 Encounter for screening for respiratory disorder NEC (ICD-10 - Z13.83) 07/15/2024 Diabetes mellitus due to underlying condition with diabetic neuropathy, unspecified (ICD-10 - E08.40) Lindsay is 78 years old lady with DM type II, hypertension, hyperlipidemia, obesity, anxiety/depression , progressive dementia and recently she lost her and she is still in a bereavement phase. She is accompanied by her friend today. Plan is as follows DM type II. Her A1c has improved and it is 7.3. Her friends and PRE SCHOOL TEACHER are making sure that she is on a low carbohydrate diet and she is taking her medications as directed. Hypertension/hyper lipidemia. Blood pressure well controlled and lipid panel is within reasonable limits. Continue current meds Anxiety/depression . We will increase Lexapro to 20 mg daily and continue on mirtazapine 45 mg along with haloperidol 0.5 mg daily at bedtime. Progressive dementia. She is currently on Aricept 10 mg daily. According to her friend she is forgetful and she leaves things on the stove. We recommended that she should not use stole at any time. Because of her worsening dementia and her overall comorbidities we will recommend that she should have [id number]-[id number] supervision/help at this point she has PRE SCHOOL TEACHER who comes in for limited hours and rest of the time her friends to care of her. Chronic kidney disease stage IIIb. She does not appear to be volume overload. She is given referral to see shoemaker custom. Avoid NSAIDs. She is on ARB. Anemia. Most likely secondary to chronic kidney disease and she can have iron supplements. 07/15/2024 Essential (primary) hypertension (ICD-10 - I10) Lindsay is 78 years old lady with DM type II, hypertension, hyperlipidemia, obesity, anxiety/depression , progressive dementia and recently she lost her and she is still in a bereavement phase. She is accompanied by her friend today. Plan is as follows DM type II. Her A1c has improved and it is 7.3. Her friends and PRE SCHOOL TEACHER are making sure that she is on a low carbohydrate diet and she is taking her medications as directed. Hypertension/hyper lipidemia. Blood pressure well controlled and lipid panel is within reasonable limits. Continue current meds Anxiety/depression . We will increase Lexapro to 20 mg daily and continue on mirtazapine 45 mg along with haloperidol 0.5 mg daily at bedtime. Progressive dementia. She is currently on Aricept 10 mg daily. According to her friend she is forgetful and she leaves things on the stove. We recommended that she should not use stole at any time. Because of her worsening dementia and her overall comorbidities we will recommend that she should have lnoca-fzj-yvryq supervision/help at this point she has PRE SCHOOL TEACHER who comes in for limited hours and rest of the time her friends to care of her. Chronic kidney disease stage IIIb. She does not appear to be volume overload. She is given referral to see shoemaker custom. Avoid NSAIDs. She is on ARB. Anemia. Most likely secondary to chronic kidney disease and she can have iron supplements. 06/02/2024 Urgency of urination (ICD-10 - R39.15) 06/04/2024 Type 2 diabetes mellitus with unspecified complications (ICD-10 - E11.8) Mrs. Mujica is a 78-year-old lady with DM type II, hypertension, hyperlipidemia, hypothyroidism here for follow up. She is accompanied by her [employer] SCHOOL TEACHER .Plan is as follows: Type II diabetes mellitus. Last A1c improved from 8.7 to 7.3.. We took her off on Metformin due to diarrhea. She is not interested in insulin or GLP-1 injectables and insulin. Continue Rybelsus 14 MG, Januvia 100 MG, and Glimepiride 4 MG. Foot care discussed and she sees podiatry and ophthalmology. Check A1c. Hypertension. Blood pressure is still borderline high in the office today. She has memory issues and is noncompliant with her medications. Cut back on sodium intake. Advised appropriate hydration, cardio exercises and weight loss. Continue Amlodipine 10 MG and Telmisartan 80 MG.decrease hydralazine to 25 mg 1 tablet 3 times a day because patient was feeling sleepy in the afternoon and in the evening after taking hydralazine 50 mg. 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 Hyperlipidemia. Last lipid panel improved but is still borderline high. She is noncompliant with medications. Continue Pravastatin 10 40 MG and Zetia 10 MG, Gemfibrozil 600 MG. Repeat lipid panel. Hypothyroidism. Continue Levothyroxine 25 MCG and advised to take it first thing in the morning on an empty stomach. Complaints of memory disturbance. Her memory is declining and she will benefit from having someone to help with her medications. Advised to continue Donepezil 10 MG along with Memantine ER 14 MG. Generalized anxiety disorder./depressi on She recently lost her and she is still on bereavement phase. Continue Lexapro 10 mg Insomnia. she is currently on haloperidol which helps with sleep and mood Vitamin D deficiency. She is taking Vitamin D supplements. Viral infection. No signs of active infection. Discussed it may take some time for symptoms to clear. Start Benzonatate 100 MG TID PRN for 7 days. She can also take Tylenol as needed. Advised appropriate hydration. Class 2 obesity. Advised dietary restrictions and regimental exercise. Goal is to lose 5-6 lbs a month. General health concerns discussed with patient. Scribe services used to formulate this note under HIPAA compliance and under [place] law mandated for scribe services. Patient aware of service. Verbal consent and written consent taken from the patient. Patient understands and verbalizes understanding of the scribes services and all questions answered regarding scribes services. Patient agrees to use of scribes services. 08/12/2024 Diabetes mellitus due to underlying condition with diabetic neuropathy, unspecified (ICD-10 - E08.40) Lindsay is 78 years old lady with DM type II, hypertension, hyperlipidemia, obesity, anxiety/depression , progressive dementia and recently she lost her and she is still in a bereavement phase. She is accompanied by her friend today. Plan is as follows DM type II. Her A1c has improved and it is 7.3. Her friends and [employer] SCHOOL TEACHER are making sure that she is on a low carbohydrate diet and she is taking her medications as directed. Hypertension/hyper lipidemia. Blood pressure well controlled and lipid panel is within reasonable limits. Continue current meds Anxiety/depression . She was recently seen by Dr. Chavez and she is on Prozac, buspirone and mirtazapine, Haldol and Lexapro was DC'd. We do not have doses at this point which her friend will drop later. Progressive dementia. She is currently on Aricept 10 mg daily. According to her friend she is forgetful and she leaves things on the stove. We recommended that she should not use stole at any time. Because of her worsening dementia and her overall comorbidities we will recommend that she should have tocwg-[id number] supervision/help at this point she has PRE SCHOOL TEACHER who comes in for limited hours and rest of the time her friends to care of her. Chronic kidney disease stage IIIb. She does not appear to be volume overload. She is given referral to see shoemaker custom. Avoid NSAIDs. She is on ARB. Anemia. Most likely secondary to chronic kidney disease and she can have iron supplements. 08/12/2024 Essential (primary) hypertension (ICD-10 - I10) Lindsay is 78 years old lady with DM type II, hypertension, hyperlipidemia, obesity, anxiety/depression , progressive dementia and recently she lost her and she is still in a bereavement phase. She is accompanied by her friend today. Plan is as follows DM type II. Her A1c has improved and it is 7.3. Her friends and [employer] SCHOOL TEACHER are making sure that she is on a low carbohydrate diet and she is taking her medications as directed. Hypertension/hyper lipidemia. Blood pressure well controlled and lipid panel is within reasonable limits. Continue current meds Anxiety/depression . She was recently seen by Dr. Chavez and she is on Prozac, buspirone and mirtazapine, Haldol and Lexapro was DC'd. We do not have doses at this point which her friend will drop later. Progressive dementia. She is currently on Aricept 10 mg daily. According to her friend she is forgetful and she leaves things on the stove. We recommended that she should not use stole at any time. Because of her worsening dementia and her overall comorbidities we will recommend that she should have xpxht-hoh-zggmk supervision/help at this point she has PRE SCHOOL TEACHER who comes in for limited hours and rest of the time her friends to care of her. Chronic kidney disease stage IIIb. She does not appear to be volume overload. She is given referral to see shoemaker custom. Avoid NSAIDs. She is on ARB. Anemia. Most likely secondary to chronic kidney disease and she can have iron supplements. 11/11/2024 Diabetes mellitus due to underlying condition with diabetic neuropathy, unspecified (ICD-10 - E08.40) Lindsay is 79 years old lady with DM type II, hypertension, hyperlipidemia, obesity, anxiety/depression , progressive dementia and recently she lost her and she is still in a bereavement phase. She is accompanied by her friend today. Plan is as follows DM type II. Her A1c has improved and it is 7.1. Her friends and [employer] SCHOOL TEACHER are making sure that she is on a low carbohydrate diet and she is taking her medications as directed. Hypertension/hyper lipidemia. Blood pressure well controlled and lipid panel is within reasonable limits. Continue current meds Anxiety/depression . She was recently seen by Dr. Chavez and she is on Prozac, buspirone and mirtazapine. There is question of prozac vs lexapro. PRE SCHOOL TEACHER will update us on the medication list. Advised on avoiding taking both meds as it can lead to Serotonin syndrome. Progressive dementia. She is currently on Aricept 10 mg daily. According to her friend she is forgetful and she leaves things on the stove. We recommended that she should not use stole at any time. Because of her worsening dementia and her overall comorbidities we will recommend that she should have zmbwa-ogb-[id number] supervision/help at this point she has PRE SCHOOL TEACHER who comes in for limited hours and rest of the time her friends to care of her. Chronic kidney disease stage IIIb. She does not appear to be volume overload. She is given referral to see shoemaker custom. Avoid NSAIDs. She is on ARB. Anemia. Most likely secondary to chronic kidney disease and she can have iron supplements. I have rendered the services for this patient under direct supervision of Dr. Henson, who did not see the patient but was available upon request 11/11/2024 Essential (primary) hypertension (ICD-10 - I10) Lindsay is 79 years old lady with DM type II, hypertension, hyperlipidemia, obesity, anxiety/depression , progressive dementia and recently she lost her and she is still in a bereavement phase. She is accompanied by her friend today. Plan is as follows DM type II. Her A1c has improved and it is 7.1. Her friends and [employer] SCHOOL TEACHER are making sure that she is on a low carbohydrate diet and she is taking her medications as directed. Hypertension/hyper lipidemia. Blood pressure well controlled and lipid panel is within reasonable limits. Continue current meds Anxiety/depression . She was recently seen by Dr. Chavez and she is on Prozac, buspirone and mirtazapine. There is question of prozac vs lexapro. PRE SCHOOL TEACHER will update us on the medication list. Advised on avoiding taking both meds as it can lead to Serotonin syndrome. Progressive dementia. She is currently on Aricept 10 mg daily. According to her friend she is forgetful and she leaves things on the stove. We recommended that she should not use stole at any time. Because of her worsening dementia and her overall comorbidities we will recommend that she should have xcirj-bfh-srpgs supervision/help at this point she has PRE SCHOOL TEACHER who comes in for limited hours and rest of the time her friends to care of her. Chronic kidney disease stage IIIb. She does not appear to be volume overload. She is given referral to see shoemaker custom. Avoid NSAIDs. She is on ARB. Anemia. Most likely secondary to chronic kidney disease and she can have iron supplements. I have rendered the services for this patient under direct supervision of Dr. Henson, who did not see the patient but was available upon request 11/11/2024 Hypothyroidism, unspecified (ICD-10 - E03.9) Lindsay is 79 years old lady with DM type II, hypertension, hyperlipidemia, obesity, anxiety/depression , progressive dementia and recently she lost her and she is still in a bereavement phase. She is accompanied by her friend today. Plan is as follows DM type II. Her A1c has improved and it is 7.1. Her friends and [employer] SCHOOL TE[employer]ER are making sure that she is on a low carbohydrate diet and she is taking her medications as directed. Hypertension/hyper lipidemia. Blood pressure well controlled and lipid panel is within reasonable limits. Continue current meds Anxiety/depression . She was recently seen by Dr. Chavez and she is on Prozac, buspirone and mirtazapine. There is question of prozac vs lexapro. PRE SCHOOL TEACHER will update us on the medication list. Advised on avoiding taking both meds as it can lead to Serotonin syndrome. Progressive dementia. She is currently on Aricept 10 mg daily. According to her friend she is forgetful and she leaves things on the stove. We recommended that she should not use stole at any time. Because of her worsening dementia and her overall comorbidities we will recommend that she should have [id number] supervision/help at this point she has [employer] SCHOOL TEACHER who comes in for limited hours and rest of the time her friends to care of her. Chronic kidney disease stage IIIb. She does not appear to be volume overload. She is given referral to see shoemaker custom. Avoid NSAIDs. She is on ARB. Anemia. Most likely secondary to chronic kidney disease and she can have iron supplements. I have rendered the services for this patient under direct supervision of Dr. Henson, who did not see the patient but was available upon request 08/12/2024 Hypothyroidism, unspecified (ICD-10 - E03.9) Lindsay is 78 years old lady with DM type II, hypertension, hyperlipidemia, obesity, anxiety/depression , progressive dementia and recently she lost her and she is still in a bereavement phase. She is accompanied by her friend today. Plan is as follows DM type II. Her A1c has improved and it is 7.3. Her friends and [employer] SCHOOL TE[employer]ER are making sure that she is on a low carbohydrate diet and she is taking her medications as directed. Hypertension/hyper lipidemia. Blood pressure well controlled and lipid panel is within reasonable limits. Continue current meds Anxiety/depression . She was recently seen by Dr. Chavez and she is on Prozac, buspirone and mirtazapine, Haldol and Lexapro was DC'd. We do not have doses at this point which her friend will drop later. Progressive dementia. She is currently on Aricept 10 mg daily. According to her friend she is forgetful and she leaves things on the stove. We recommended that she should not use stole at any time. Because of her worsening dementia and her overall comorbidities we will recommend that she should have ntqhq-wgg-rskse supervision/help at this point she has [employer] SCHOOL TEACHER who comes in for limited hours and rest of the time her friends to care of her. Chronic kidney disease stage IIIb. She does not appear to be volume overload. She is given referral to see shoemaker custom. Avoid NSAIDs. She is on ARB. Anemia. Most likely secondary to chronic kidney disease and she can have iron supplements. 06/04/2024 Mixed hyperlipidemia (ICD-10 - E78.2) Mrs. Mujica is a 78-year-old lady with DM type II, hypertension, hyperlipidemia, hypothyroidism here for follow up. She is accompanied by her PRE SCHOOL TEACHER .Plan is as follows: Type II diabetes mellitus. Last A1c improved from 8.7 to 7.3.. We took her off on Metformin due to diarrhea. She is not interested in insulin or GLP-1 injectables and insulin. Continue Rybelsus 14 MG, Januvia 100 MG, and Glimepiride 4 MG. Foot care discussed and she sees podiatry and ophthalmology. Check A1c. Hypertension. Blood pressure is still borderline high in the office today. She has memory issues and is noncompliant with her medications. Cut back on sodium intake. Advised appropriate hydration, cardio exercises and weight loss. Continue Amlodipine 10 MG and Telmisartan 80 MG.decrease hydralazine to 25 mg 1 tablet 3 times a day because patient was feeling sleepy in the afternoon and in the evening after taking hydralazine 50 mg. 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 Hyperlipidemia. Last lipid panel improved but is still borderline high. She is noncompliant with medications. Continue Pravastatin 10 40 MG and Zetia 10 MG, Gemfibrozil 600 MG. Repeat lipid panel. Hypothyroidism. Continue Levothyroxine 25 MCG and advised to take it first thing in the morning on an empty stomach. Complaints of memory disturbance. Her memory is declining and she will benefit from having someone to help with her medications. Advised to continue Donepezil 10 MG along with Memantine ER 14 MG. Generalized anxiety disorder./depressi on She recently lost her and she is still on bereavement phase. Continue Lexapro 10 mg Insomnia. she is currently on haloperidol which helps with sleep and mood Vitamin D deficiency. She is taking Vitamin D supplements. Viral infection. No signs of active infection. Discussed it may take some time for symptoms to clear. Start Benzonatate 100 MG TID PRN for 7 days. She can also take Tylenol as needed. Advised appropriate hydration. Class 2 obesity. Advised dietary restrictions and regimental exercise. Goal is to lose 5-6 lbs a month. General health concerns discussed with patient. Scribe services used to formulate this note under HIPAA compliance and under [place] law mandated for scribe services. Patient aware of service. Verbal consent and written consent taken from the patient. Patient understands and verbalizes understanding of the scribes services and all questions answered regarding scribes services. Patient agrees to use of scribes services. 06/04/2024 Viral infection, unspecified (ICD-10 - B34.9) Mrs. Mujica is a 78-year-old lady with DM type II, hypertension, hyperlipidemia, hypothyroidism here for follow up. She is accompanied by her PRE SCHOOL TEACHER .Plan is as follows: Type II diabetes mellitus. Last A1c improved from 8.7 to 7.3.. We took her off on Metformin due to diarrhea. She is not interested in insulin or GLP-1 injectables and insulin. Continue Rybelsus 14 MG, Januvia 100 MG, and Glimepiride 4 MG. Foot care discussed and she sees podiatry and ophthalmology. Check A1c. Hypertension. Blood pressure is still borderline high in the office today. She has memory issues and is noncompliant with her medications. Cut back on sodium intake. Advised appropriate hydration, cardio exercises and weight loss. Continue Amlodipine 10 MG and Telmisartan 80 MG.decrease hydralazine to 25 mg 1 tablet 3 times a day because patient was feeling sleepy in the afternoon and in the evening after taking hydralazine 50 mg. 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 Hyperlipidemia. Last lipid panel improved but is still borderline high. She is noncompliant with medications. Continue Pravastatin 10 40 MG and Zetia 10 MG, Gemfibrozil 600 MG. Repeat lipid panel. Hypothyroidism. Continue Levothyroxine 25 MCG and advised to take it first thing in the morning on an empty stomach. Complaints of memory disturbance. Her memory is declining and she will benefit from having someone to help with her medications. Advised to continue Donepezil 10 MG along with Memantine ER 14 MG. Generalized anxiety disorder./depressi on She recently lost her and she is still on bereavement phase. Continue Lexapro 10 mg Insomnia. she is currently on haloperidol which helps with sleep and mood Vitamin D deficiency. She is taking Vitamin D supplements. Viral infection. No signs of active infection. Discussed it may take some time for symptoms to clear. Start Benzonatate 100 MG TID PRN for 7 days. She can also take Tylenol as needed. Advised appropriate hydration. Class 2 obesity. Advised dietary restrictions and regimental exercise. Goal is to lose 5-6 lbs a month. General health concerns discussed with patient. Scribe services used to formulate this note under HIPAA compliance and under [place] law mandated for scribe services. Patient aware of service. Verbal consent and written consent taken from the patient. Patient understands and verbalizes understanding of the scribes services and all questions answered regarding scribes services. Patient agrees to use of scribes services. 07/15/2024 Hypothyroidism, unspecified (ICD-10 - E03.9) Lindsay is 78 years old lady with DM type II, hypertension, hyperlipidemia, obesity, anxiety/depression , progressive dementia and recently she lost her and she is still in a bereavement phase. She is accompanied by her friend today. Plan is as follows DM type II. Her A1c has improved and it is 7.3. Her friends and PRE SCHOOL TEACHER are making sure that she is on a low carbohydrate diet and she is taking her medications as directed. Hypertension/hyper lipidemia. Blood pressure well controlled and lipid panel is within reasonable limits. Continue current meds Anxiety/depression . We will increase Lexapro to 20 mg daily and continue on mirtazapine 45 mg along with haloperidol 0.5 mg daily at bedtime. Progressive dementia. She is currently on Aricept 10 mg daily. According to her friend she is forgetful and she leaves things on the stove. We recommended that she should not use stole at any time. Because of her worsening dementia and her overall comorbidities we will recommend that she should have [id number] supervision/help at this point she has PRE SCHOOL TEACHER who comes in for limited hours and rest of the time her friends to care of her. Chronic kidney disease stage IIIb. She does not appear to be volume overload. She is given referral to see shoemaker custom. Avoid NSAIDs. She is on ARB. Anemia. Most likely secondary to chronic kidney disease and she can have iron supplements. 04/21/2024 Mixed hyperlipidemia (ICD-10 - E78.2) Mrs. Mujiac is a 78-year-old lady with DM type II, hypertension, hyperlipidemia, hypothyroidism here for annual wellness visit. Plan is as follows: Type II diabetes mellitus. A1c 8.7. Fasting sugars 187. We took her off on Metformin due to diarrhea. She is not interested in insulin or GLP-1 injectables and insulin. Continue Rybelsus 14 MG, Januvia 100 MG, and Glimepiride 4 MG. Foot care discussed and she sees podiatry and ophthalmology. Check A1c. EKG is normal sinus rhythm at [address] with no acute [address] or T wave changes, no bundle-branch blocks, normal intervals Hypertension. Blood pressure is still borderline high in the office today. She has memory issues and is noncompliant with her medications. Cut back on sodium intake. Advised appropriate hydration, cardio exercises and weight loss. Continue Amlodipine 10 MG and Telmisartan 80 MG. Hyperlipidemia. Triglycerides 176. LDL 115 Non HDL 146. She is noncompliant with medications. Continue Pravastatin 10 40 MG and Zetia 10 MG, Gemfibrozil 600 MG. Hypothyroidism. Continue Levothyroxine 25 MCG and advised to take it first thing in the morning on an empty stomach. Complaints of memory disturbance. Her memory is declining and she will benefit from having someone to help with her medications. Advised to continue Donepezil 10 MG along with Memantine ER 14 MG. Generalized anxiety disorder./depressi on She recently lost her and she is still on bereavement phase. We we will start her on Lexapro 10 mg and we stopped mirtazapine Insomnia. she is currently on haloperidol which helps with sleep and mood Vitamin D deficiency. She is taking Vitamin D supplements. Impacted cerumen. She can use mineral oil over the counter. Avoid using q-tips Class 2 obesity. Advised dietary restrictions and regimental exercise. Goal is to lose 5-6 lbs a month. Weakness and gait instability. Referred to physical therapy Eye screening. She sees her assistant farm operations manager regularly. Dental screening. She sees dentist regularly. Breast cancer screening. Ordered mammogram Immunizations. She is up-to-date on her COVID and influenza vaccinations. Screening blood work before next appointment. General health concerns discussed with patient. Scribe services used to formulate this note under HIPAA compliance and under [place] law mandated for scribe services. Patient aware of service. Verbal consent and written consent taken from the patient. Patient understands and verbalizes understanding of the scribes services and all questions answered regarding scribes services. Patient agrees to use of scribes services. 03/06/2024 Complaints of memory disturbance (ICD-10 - R41.3) Mrs. Mujica is a 78-year-old lady with DM type II, hypertension, hyperlipidemia, hypothyroidism here for follow up on blood pressure. BP is running high in the office today. Plan as follows: HTN: - BP is elevated for the second visit today. We have started patient on Carvedilol. Recheck BP in two weeks. Complaints of memory disturbances: - She is on the right medication, encouraged activities or games that helps with memory function. - She has her daughter and friend help her at home with ADLs. They state that it is unsafe for her to be home alone. - They are working on getting a [facility]. - We have referred to [facility] as well to ensure medication complaince. I have rendered the services for this patient under direct supervision of Dr. Henson, who did not see the patient but was available upon request 02/28/2024 Essential (primary) hypertension (ICD-10 - I10) Mrs. Mujica is a 78-year-old lady with DM type II, hypertension, hyperlipidemia, hypothyroidism here for follow up on blood pressure. Plan is as follows: Type II diabetes mellitus. - Last A1c improved from 9.0 to 8.7.Fasting sugars also improved from 226 to 195, but are still high. We took her off on - She is noncompliant with low calorie diet. Continue Rybelsus 14 MG, Januvia 100 MG, and Glimepiride 4 MG. Referred to podiatry. Check A1c. Hypertension. -Blood pressure is still borderline high in the office today. She has memory issues. She has been eating out most of the time. Cut back on sodium intake. Advised appropriate hydration, cardio exercises and weight loss. Continue Amlodipine 10 MG and Telmisartan 80 MG. We will check BP in one week. Hyperlipidemia. -Triglycerides 157 which is high. She is noncompliant with medications and diet. Continue Pravastatin 10 40 MG restarted her on Zetia 10 MG, Gemfibrozil 600 MG. Hypothyroidism. -Continue Levothyroxine 25 MCG and advised to take it first thing in the morning on an empty stomach. Complaints of memory disturbance. -Her memory is declining and she will benefit from having someone to help with her medications. Advised to continue Donepezil 10 MG along with Memantine ER 14 MG. We will also refer patient to home [facility] to ensure medication compliance. Insomnia. Anxiety -She is doing good on Mirtazapine to 45 MG and sleep hygiene discussed. - Referred patient to psychiatrist and started her on low dose Haldol. Vitamin D deficiency. -She is taking vitamin D supplements. I have rendered the services for this patient under direct supervision of Dr. Henson, who did not see the patient but was available upon request 02/28/2024 Mixed hyperlipidemia (ICD-10 - E78.2) Mrs. Mujica is a 78-year-old lady with DM type II, hypertension, hyperlipidemia, hypothyroidism here for follow up on blood pressure. Plan is as follows: Type II diabetes mellitus. - Last A1c improved from 9.0 to 8.7.Fasting sugars also improved from 226 to 195, but are still high. We took her off on - She is noncompliant with low calorie diet. Continue Rybelsus 14 MG, Januvia 100 MG, and Glimepiride 4 MG. Referred to podiatry. Check A1c. Hypertension. -Blood pressure is still borderline high in the office today. She has memory issues. She has been eating out most of the time. Cut back on sodium intake. Advised appropriate hydration, cardio exercises and weight loss. Continue Amlodipine 10 MG and Telmisartan 80 MG. We will check BP in one week. Hyperlipidemia. -Triglycerides 157 which is high. She is noncompliant with medications and diet. Continue Pravastatin 10 40 MG restarted her on Zetia 10 MG, Gemfibrozil 600 MG. Hypothyroidism. -Continue Levothyroxine 25 MCG and advised to take it first thing in the morning on an empty stomach. Complaints of memory disturbance. -Her memory is declining and she will benefit from having someone to help with her medications. Advised to continue Donepezil 10 MG along with Memantine ER 14 MG. We will also refer patient to home [facility] to ensure medication compliance. Insomnia. Anxiety -She is doing good on Mirtazapine to 45 MG and sleep hygiene discussed. - Referred patient to psychiatrist and started her on low dose Haldol. Vitamin D deficiency. -She is taking vitamin D supplements. I have rendered the services for this patient under direct supervision of Dr. Henson, who did not see the patient but was available upon request 04/21/2024 Hypothyroidism, unspecified (ICD-10 - E03.9) Mrs. Mujica is a 78-year-old lady with DM type II, hypertension, hyperlipidemia, hypothyroidism here for annual wellness visit. Plan is as follows: Type II diabetes mellitus. A1c 8.7. Fasting sugars 187. We took her off on Metformin due to diarrhea. She is not interested in insulin or GLP-1 injectables and insulin. Continue Rybelsus 14 MG, Januvia 100 MG, and Glimepiride 4 MG. Foot care discussed and she sees podiatry and ophthalmology. Check A1c. EKG is normal sinus rhythm at [address]pm with no acute ST or T wave changes, no bundle-branch blocks, normal intervals Hypertension. Blood pressure is still borderline high in the office today. She has memory issues and is noncompliant with her medications. Cut back on sodium intake. Advised appropriate hydration, cardio exercises and weight loss. Continue Amlodipine 10 MG and Telmisartan 80 MG. Hyperlipidemia. Triglycerides 176. LDL 115 Non HDL 146. She is noncompliant with medications. Continue Pravastatin 10 40 MG and Zetia 10 MG, Gemfibrozil 600 MG. Hypothyroidism. Continue Levothyroxine 25 MCG and advised to take it first thing in the morning on an empty stomach. Complaints of memory disturbance. Her memory is declining and she will benefit from having someone to help with her medications. Advised to continue Donepezil 10 MG along with Memantine ER 14 MG. Generalized anxiety disorder./depressi on She recently lost her and she is still on bereavement phase. We we will start her on Lexapro 10 mg and we stopped mirtazapine Insomnia. she is currently on haloperidol which helps with sleep and mood Vitamin D deficiency. She is taking Vitamin D supplements. Impacted cerumen. She can use mineral oil over the counter. Avoid using q-tips Class 2 obesity. Advised dietary restrictions and regimental exercise. Goal is to lose 5-6 lbs a month. Weakness and gait instability. Referred to physical therapy Eye screening. She sees her assistant farm operations manager regularly. Dental screening. She sees dentist regularly. Breast cancer screening. Ordered mammogram Immunizations. She is up-to-date on her COVID and influenza vaccinations. Screening blood work before next appointment. General health concerns discussed with patient. Scribe services used to formulate this note under HIPAA compliance and under [place] law mandated for scribe services. Patient aware of service. Verbal consent and written consent taken from the patient. Patient understands and verbalizes understanding of the scribes services and all questions answered regarding scribes services. Patient agrees to use of scribes services. 07/15/2024 Complaints of memory disturbance (ICD-10 - R41.3) Lindsay is 78 years old lady with DM type II, hypertension, hyperlipidemia, obesity, anxiety/depression , progressive dementia and recently she lost her and she is still in a bereavement phase. She is accompanied by her friend today. Plan is as follows DM type II. Her A1c has improved and it is 7.3. Her friends and PRE SCHOOL TEACHER are making sure that she is on a low carbohydrate diet and she is taking her medications as directed. Hypertension/hyper lipidemia. Blood pressure well controlled and lipid panel is within reasonable limits. Continue current meds Anxiety/depression . We will increase Lexapro to 20 mg daily and continue on mirtazapine 45 mg along with haloperidol 0.5 mg daily at bedtime. Progressive dementia. She is currently on Aricept 10 mg daily. According to her friend she is forgetful and she leaves things on the stove. We recommended that she should not use stole at any time. Because of her worsening dementia and her overall comorbidities we will recommend that she should have [id number] supervision/help at this point she has PRE SCHOOL TEACHER who comes in for limited hours and rest of the time her friends to care of her. Chronic kidney disease stage IIIb. She does not appear to be volume overload. She is given referral to see shoemaker custom. Avoid NSAIDs. She is on ARB. Anemia. Most likely secondary to chronic kidney disease and she can have iron supplements. 08/12/2024 Complaints of memory disturbance (ICD-10 - R41.3) Lindsay is 78 years old lady with DM type II, hypertension, hyperlipidemia, obesity, anxiety/depression , progressive dementia and recently she lost her and she is still in a bereavement phase. She is accompanied by her friend today. Plan is as follows DM type II. Her A1c has improved and it is 7.3. Her friends and PRE SCHOOL TEACHER are making sure that she is on a low carbohydrate diet and she is taking her medications as directed. Hypertension/hyper lipidemia. Blood pressure well controlled and lipid panel is within reasonable limits. Continue current meds Anxiety/depression . She was recently seen by Dr. Chavez and she is on Prozac, buspirone and mirtazapine, Haldol and Lexapro was DC'd. We do not have doses at this point which her friend will drop later. Progressive dementia. She is currently on Aricept 10 mg daily. According to her friend she is forgetful and she leaves things on the stove. We recommended that she should not use stole at any time. Because of her worsening dementia and her overall comorbidities we will recommend that she should have [id number]-kpn-cffuh supervision/help at this point she has PRE SCHOOL TEACHER who comes in for limited hours and rest of the time her friends to care of her. Chronic kidney disease stage IIIb. She does not appear to be volume overload. She is given referral to see shoemaker custom. Avoid NSAIDs. She is on ARB. Anemia. Most likely secondary to chronic kidney disease and she can have iron supplements. 11/11/2024 Complaints of memory disturbance (ICD-10 - R41.3) Lindsay is 79 years old lady with DM type II, hypertension, hyperlipidemia, obesity, anxiety/depression , progressive dementia and recently she lost her and she is still in a bereavement phase. She is accompanied by her friend today. Plan is as follows DM type II. Her A1c has improved and it is 7.1. Her friends and PRE SCHOOL TEACHER are making sure that she is on a low carbohydrate diet and she is taking her medications as directed. Hypertension/hyper lipidemia. Blood pressure well controlled and lipid panel is within reasonable limits. Continue current meds Anxiety/depression . She was recently seen by Dr. Chavez and she is on Prozac, buspirone and mirtazapine. There is question of prozac vs lexapro. PRE SCHOOL TEACHER will update us on the medication list. Advised on avoiding taking both meds as it can lead to Serotonin syndrome. Progressive dementia. She is currently on Aricept 10 mg daily. According to her friend she is forgetful and she leaves things on the stove. We recommended that she should not use stole at any time. Because of her worsening dementia and her overall comorbidities we will recommend that she should have [id number]-[id number] supervision/help at this point she has PRE SCHOOL TEACHER who comes in for limited hours and rest of the time her friends to care of her. Chronic kidney disease stage IIIb. She does not appear to be volume overload. She is given referral to see shoemaker custom. Avoid NSAIDs. She is on ARB. Anemia. Most likely secondary to chronic kidney disease and she can have iron supplements. I have rendered the services for this patient under direct supervision of Dr. Henson, who did not see the patient but was available upon request 11/11/2024 Generalized anxiety disorder (ICD-10 - F41.1) Lindsay is 79 years old lady with DM type II, hypertension, hyperlipidemia, obesity, anxiety/depression , progressive dementia and recently she lost her and she is still in a bereavement phase. She is accompanied by her friend today. Plan is as follows DM type II. Her A1c has improved and it is 7.1. Her friends and PRE SCHOOL TEACHER are making sure that she is on a low carbohydrate diet and she is taking her medications as directed. Hypertension/hyper lipidemia. Blood pressure well controlled and lipid panel is within reasonable limits. Continue current meds Anxiety/depression . She was recently seen by Dr. Chavez and she is on Prozac, buspirone and mirtazapine. There is question of prozac vs lexapro. PRE SCHOOL TEACHER will update us on the medication list. Advised on avoiding taking both meds as it can lead to Serotonin syndrome. Progressive dementia. She is currently on Aricept 10 mg daily. According to her friend she is forgetful and she leaves things on the stove. We recommended that she should not use stole at any time. Because of her worsening dementia and her overall comorbidities we will recommend that she should have [id number] supervision/help at this point she has PRE SCHOOL TEACHER who comes in for limited hours and rest of the time her friends to care of her. Chronic kidney disease stage IIIb. She does not appear to be volume overload. She is given referral to see shoemaker custom. Avoid NSAIDs. She is on ARB. Anemia. Most likely secondary to chronic kidney disease and she can have iron supplements. I have rendered the services for this patient under direct supervision of Dr. Henson, who did not see the patient but was available upon request 08/12/2024 Generalized anxiety disorder (ICD-10 - F41.1) Lindsay is 78 years old lady with DM type II, hypertension, hyperlipidemia, obesity, anxiety/depression , progressive dementia and recently she lost her and she is still in a bereavement phase. She is accompanied by her friend today. Plan is as follows DM type II. Her A1c has improved and it is 7.3. Her friends and PRE SCHOOL TEACHER are making sure that she is on a low carbohydrate diet and she is taking her medications as directed. Hypertension/hyper lipidemia. Blood pressure well controlled and lipid panel is within reasonable limits. Continue current meds Anxiety/depression . She was recently seen by Dr. Chavez and she is on Prozac, buspirone and mirtazapine, Haldol and Lexapro was DC'd. We do not have doses at this point which her friend will drop later. Progressive dementia. She is currently on Aricept 10 mg daily. According to her friend she is forgetful and she leaves things on the stove. We recommended that she should not use stole at any time. Because of her worsening dementia and her overall comorbidities we will recommend that she should have zkvhw-nol-oeikv supervision/help at this point she has PRE SCHOOL TEACHER who comes in for limited hours and rest of the time her friends to care of her. Chronic kidney disease stage IIIb. She does not appear to be volume overload. She is given referral to see shoemaker custom. Avoid NSAIDs. She is on ARB. Anemia. Most likely secondary to chronic kidney disease and she can have iron supplements. 07/15/2024 Generalized anxiety disorder (ICD-10 - F41.1) Lindsay is 78 years old lady with DM type II, hypertension, hyperlipidemia, obesity, anxiety/depression , progressive dementia and recently she lost her and she is still in a bereavement phase. She is accompanied by her friend today. Plan is as follows DM type II. Her A1c has improved and it is 7.3. Her friends and PRE SCHOOL TEACHER are making sure that she is on a low carbohydrate diet and she is taking her medications as directed. Hypertension/hyper lipidemia. Blood pressure well controlled and lipid panel is within reasonable limits. Continue current meds Anxiety/depression . We will increase Lexapro to 20 mg daily and continue on mirtazapine 45 mg along with haloperidol 0.5 mg daily at bedtime. Progressive dementia. She is currently on Aricept 10 mg daily. According to her friend she is forgetful and she leaves things on the stove. We recommended that she should not use stole at any time. Because of her worsening dementia and her overall comorbidities we will recommend that she should have [id number] supervision/help at this point she has PRE SCHOOL TEACHER who comes in for limited hours and rest of the time her friends to care of her. Chronic kidney disease stage IIIb. She does not appear to be volume overload. She is given referral to see shoemaker custom. Avoid NSAIDs. She is on ARB. Anemia. Most likely secondary to chronic kidney disease and she can have iron supplements. 04/21/2024 Age-related osteoporosis without current pathological fracture (ICD-10 - M81.0) Mrs. Mujica is a 78-year-old lady with DM type II, hypertension, hyperlipidemia, hypothyroidism here for annual wellness visit. Plan is as follows: Type II diabetes mellitus. A1c 8.7. Fasting sugars 187. We took her off on Metformin due to diarrhea. She is not interested in insulin or GLP-1 injectables and insulin. Continue Rybelsus 14 MG, Januvia 100 MG, and Glimepiride 4 MG. Foot care discussed and she sees podiatry and ophthalmology. Check A1c. EKG is normal sinus rhythm at [address]pm with no acute ST or T wave changes, no bundle-branch blocks, normal intervals Hypertension. Blood pressure is still borderline high in the office today. She has memory issues and is noncompliant with her medications. Cut back on sodium intake. Advised appropriate hydration, cardio exercises and weight loss. Continue Amlodipine 10 MG and Telmisartan 80 MG. Hyperlipidemia. Triglycerides 176. LDL 115 Non HDL 146. She is noncompliant with medications. Continue Pravastatin 10 40 MG and Zetia 10 MG, Gemfibrozil 600 MG. Hypothyroidism. Continue Levothyroxine 25 MCG and advised to take it first thing in the morning on an empty stomach. Complaints of memory disturbance. Her memory is declining and she will benefit from having someone to help with her medications. Advised to continue Donepezil 10 MG along with Memantine ER 14 MG. Generalized anxiety disorder./depressi on She recently lost her and she is still on bereavement phase. We we will start her on Lexapro 10 mg and we stopped mirtazapine Insomnia. she is currently on haloperidol which helps with sleep and mood Vitamin D deficiency. She is taking Vitamin D supplements. Impacted cerumen. She can use mineral oil over the counter. Avoid using q-tips Class 2 obesity. Advised dietary restrictions and regimental exercise. Goal is to lose 5-6 lbs a month. Weakness and gait instability. Referred to physical therapy Eye screening. She sees her assistant farm operations manager regularly. Dental screening. She sees dentist regularly. Breast cancer screening. Ordered mammogram Immunizations. She is up-to-date on her COVID and influenza vaccinations. Screening blood work before next appointment. General health concerns discussed with patient. Scribe services used to formulate this note under HIPAA compliance and under [place] law mandated for scribe services. Patient aware of service. Verbal consent and written consent taken from the patient. Patient understands and verbalizes understanding of the scribes services and all questions answered regarding scribes services. Patient agrees to use of scribes services. 02/28/2024 Anxiety (ICD-10 - F41.9) Mrs. Mujica is a 78-year-old lady with DM type II, hypertension, hyperlipidemia, hypothyroidism here for follow up on blood pressure. Plan is as follows: Type II diabetes mellitus. - Last A1c improved from 9.0 to 8.7.Fasting sugars also improved from 226 to 195, but are still high. We took her off on - She is noncompliant with low calorie diet. Continue Rybelsus 14 MG, Januvia 100 MG, and Glimepiride 4 MG. Referred to podiatry. Check A1c. Hypertension. -Blood pressure is still borderline high in the office today. She has memory issues. She has been eating out most of the time. Cut back on sodium intake. Advised appropriate hydration, cardio exercises and weight loss. Continue Amlodipine 10 MG and Telmisartan 80 MG. We will check BP in one week. Hyperlipidemia. -Triglycerides 157 which is high. She is noncompliant with medications and diet. Continue Pravastatin 10 40 MG restarted her on Zetia 10 MG, Gemfibrozil 600 MG. Hypothyroidism. -Continue Levothyroxine 25 MCG and advised to take it first thing in the morning on an empty stomach. Complaints of memory disturbance. -Her memory is declining and she will benefit from having someone to help with her medications. Advised to continue Donepezil 10 MG along with Memantine ER 14 MG. We will also refer patient to home [facility] to ensure medication compliance. Insomnia. Anxiety -She is doing good on Mirtazapine to 45 MG and sleep hygiene discussed. - Referred patient to psychiatrist and started her on low dose Haldol. Vitamin D deficiency. -She is taking vitamin D supplements. I have rendered the services for this patient under direct supervision of Dr. 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 Mujica is a 78-year-old lady with DM type II, hypertension, hyperlipidemia, hypothyroidism here for follow up on blood pressure. Plan is as follows: Type II diabetes mellitus. - Last A1c improved from 9.0 to 8.7.Fasting sugars also improved from 226 to 195, but are still high. We took her off on - She is noncompliant with low calorie diet. Continue Rybelsus 14 MG, Januvia 100 MG, and Glimepiride 4 MG. Referred to podiatry. Check A1c. Hypertension. -Blood pressure is still borderline high in the office today. She has memory issues. She has been eating out most of the time. Cut back on sodium intake. Advised appropriate hydration, cardio exercises and weight loss. Continue Amlodipine 10 MG and Telmisartan 80 MG. We will check BP in one week. Hyperlipidemia. -Triglycerides 157 which is high. She is noncompliant with medications and diet. Continue Pravastatin 10 40 MG restarted her on Zetia 10 MG, Gemfibrozil 600 MG. Hypothyroidism. -Continue Levothyroxine 25 MCG and advised to take it first thing in the morning on an empty stomach. Complaints of memory disturbance. -Her memory is declining and she will benefit from having someone to help with her medications. Advised to continue Donepezil 10 MG along with Memantine ER 14 MG. We will also refer patient to home VNA to ensure medication compliance. Insomnia. Anxiety -She is doing good on Mirtazapine to 45 MG and sleep hygiene discussed. - Referred patient to psychiatrist and started her on low dose Haldol. Vitamin D deficiency. -She is taking vitamin D supplements. I have rendered the services for this patient under direct supervision of Dr. 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 Mujica is a 78-year-old lady with DM type II, hypertension, hyperlipidemia, hypothyroidism here for annual wellness visit. Plan is as follows: Type II diabetes mellitus. A1c 8.7. Fasting sugars 187. We took her off on Metformin due to diarrhea. She is not interested in insulin or GLP-1 injectables and insulin. Continue Rybelsus 14 MG, Januvia 100 MG, and Glimepiride 4 MG. Foot care discussed and she sees podiatry and ophthalmology. Check A1c. EKG is normal sinus rhythm at [address]pm with no acute ST or T wave changes, no bundle-branch blocks, normal intervals Hypertension. Blood pressure is still borderline high in the office today. She has memory issues and is noncompliant with her medications. Cut back on sodium intake. Advised appropriate hydration, cardio exercises and weight loss. Continue Amlodipine 10 MG and Telmisartan 80 MG. Hyperlipidemia. Triglycerides 176. LDL 115 Non HDL 146. She is noncompliant with medications. Continue Pravastatin 10 40 MG and Zetia 10 MG, Gemfibrozil 600 MG. Hypothyroidism. Continue Levothyroxine 25 MCG and advised to take it first thing in the morning on an empty stomach. Complaints of memory disturbance. Her memory is declining and she will benefit from having someone to help with her medications. Advised to continue Donepezil 10 MG along with Memantine ER 14 MG. Generalized anxiety disorder./depressi on She recently lost her and she is still on bereavement phase. We we will start her on Lexapro 10 mg and we stopped mirtazapine Insomnia. she is currently on haloperidol which helps with sleep and mood Vitamin D deficiency. She is taking Vitamin D supplements. Impacted cerumen. She can use mineral oil over the counter. Avoid using q-tips Class 2 obesity. Advised dietary restrictions and regimental exercise. Goal is to lose 5-6 lbs a month. Weakness and gait instability. Referred to physical therapy Eye screening. She sees her assistant farm operations manager regularly. Dental screening. She sees dentist regularly. Breast cancer screening. Ordered mammogram Immunizations. She is up-to-date on her COVID and influenza vaccinations. Screening blood work before next appointment. General health concerns discussed with patient. Scribe services used to formulate this note under HIPAA compliance and under [place] law mandated for scribe services. Patient aware of service. Verbal consent and written consent taken from the patient. Patient understands and verbalizes understanding of the scribes services and all questions answered regarding scribes services. Patient agrees to use of scribes services. 07/15/2024 Major depressive disorder, recurrent, moderate (ICD-10 - F33.1) Lindsay is 78 years old lady with DM type II, hypertension, hyperlipidemia, obesity, anxiety/depression , progressive dementia and recently she lost her and she is still in a bereavement phase. She is accompanied by her friend today. Plan is as follows DM type II. Her A1c has improved and it is 7.3. Her friends and [employer] SCHOOL TEACHER are making sure that she is on a low carbohydrate diet and she is taking her medications as directed. Hypertension/hyper lipidemia. Blood pressure well controlled and lipid panel is within reasonable limits. Continue current meds Anxiety/depression . We will increase Lexapro to 20 mg daily and continue on mirtazapine 45 mg along with haloperidol 0.5 mg daily at bedtime. Progressive dementia. She is currently on Aricept 10 mg daily. According to her friend she is forgetful and she leaves things on the stove. We recommended that she should not use stole at any time. Because of her worsening dementia and her overall comorbidities we will recommend that she should have ohpqa-nni-[id number] supervision/help at this point she has PRE SCHOOL TEACHER who comes in for limited hours and rest of the time her friends to care of her. Chronic kidney disease stage IIIb. She does not appear to be volume overload. She is given referral to see shoemaker custom. Avoid NSAIDs. She is on ARB. Anemia. Most likely secondary to chronic kidney disease and she can have iron supplements. 08/12/2024 Major depressive disorder, recurrent, moderate (ICD-10 - F33.1) Lindsay is 78 years old lady with DM type II, hypertension, hyperlipidemia, obesity, anxiety/depression , progressive dementia and recently she lost her and she is still in a bereavement phase. She is accompanied by her friend today. Plan is as follows DM type II. Her A1c has improved and it is 7.3. Her friends and [employer] SCHOOL [employer]ER are making sure that she is on a low carbohydrate diet and she is taking her medications as directed. Hypertension/hyper lipidemia. Blood pressure well controlled and lipid panel is within reasonable limits. Continue current meds Anxiety/depression . She was recently seen by Dr. Chavez and she is on Prozac, buspirone and mirtazapine, Haldol and Lexapro was DC'd. We do not have doses at this point which her friend will drop later. Progressive dementia. She is currently on Aricept 10 mg daily. According to her friend she is forgetful and she leaves things on the stove. We recommended that she should not use stole at any time. Because of her worsening dementia and her overall comorbidities we will recommend that she should have qjbsf-sxn-[id number] supervision/help at this point she has [employer] SCHOOL TEACHER who comes in for limited hours and rest of the time her friends to care of her. Chronic kidney disease stage IIIb. She does not appear to be volume overload. She is given referral to see shoemaker custom. Avoid NSAIDs. She is on ARB. Anemia. Most likely secondary to chronic kidney disease and she can have iron supplements. 11/11/2024 Major depressive disorder, recurrent, moderate (ICD-10 - F33.1) Lindsay is 79 years old lady with DM type II, hypertension, hyperlipidemia, obesity, anxiety/depression , progressive dementia and recently she lost her and she is still in a bereavement phase. She is accompanied by her friend today. Plan is as follows DM type II. Her A1c has improved and it is 7.1. Her friends and [employer] SCHO[employer]ER are making sure that she is on a low carbohydrate diet and she is taking her medications as directed. Hypertension/hyper lipidemia. Blood pressure well controlled and lipid panel is within reasonable limits. Continue current meds Anxiety/depression . She was recently seen by Dr. Chavez and she is on Prozac, buspirone and mirtazapine. There is question of prozac vs lexapro. [employer] SCHOOL TE[employer]ER will update us on the medication list. Advised on avoiding taking both meds as it can lead to Serotonin syndrome. Progressive dementia. She is currently on Aricept 10 mg daily. According to her friend she is forgetful and she leaves things on the stove. We recommended that she should not use stole at any time. Because of her worsening dementia and her overall comorbidities we will recommend that she should have yrrvn-nnt-gjkoy supervision/help at this point she has [employer] SCHOOL TEACHER who comes in for limited hours and rest of the time her friends to care of her. Chronic kidney disease stage IIIb. She does not appear to be volume overload. She is given referral to see shoemaker custom. Avoid NSAIDs. She is on ARB. Anemia. Most likely secondary to chronic kidney disease and she can have iron supplements. I have rendered the services for this patient under direct supervision of Dr. Henson, who did not see the patient but was available upon request 11/11/2024 Anemia, unspecified (ICD-10 - D64.9) Lindsay is 79 years old lady with DM type II, hypertension, hyperlipidemia, obesity, anxiety/depression , progressive dementia and recently she lost her and she is still in a bereavement phase. She is accompanied by her friend today. Plan is as follows DM type II. Her A1c has improved and it is 7.1. Her friends and [employer] SCHOOL [employer]ER are making sure that she is on a low carbohydrate diet and she is taking her medications as directed. Hypertension/hyper lipidemia. Blood pressure well controlled and lipid panel is within reasonable limits. Continue current meds Anxiety/depression . She was recently seen by Dr. Chavez and she is on Prozac, buspirone and mirtazapine. There is question of prozac vs lexapro. [employer] SCHOOL [employer]ER will update us on the medication list. Advised on avoiding taking both meds as it can lead to Serotonin syndrome. Progressive dementia. She is currently on Aricept 10 mg daily. According to her friend she is forgetful and she leaves things on the stove. We recommended that she should not use stole at any time. Because of her worsening dementia and her overall comorbidities we will recommend that she should have [id number]-ppl-[id number] supervision/help at this point she has [employer] SCHOOL TEACHER who comes in for limited hours and rest of the time her friends to care of her. Chronic kidney disease stage IIIb. She does not appear to be volume overload. She is given referral to see shoemaker custom. Avoid NSAIDs. She is on ARB. Anemia. Most likely secondary to chronic kidney disease and she can have iron supplements. I have rendered the services for this patient under direct supervision of Dr. Henson, who did not see the patient but was available upon request 08/12/2024 Anemia, unspecified (ICD-10 - D64.9) Lindsay is 78 years old lady with DM type II, hypertension, hyperlipidemia, obesity, anxiety/depression , progressive dementia and recently she lost her and she is still in a bereavement phase. She is accompanied by her friend today. Plan is as follows DM type II. Her A1c has improved and it is 7.3. Her friends and [employer] SCHO[employer]ER are making sure that she is on a low carbohydrate diet and she is taking her medications as directed. Hypertension/hyper lipidemia. Blood pressure well controlled and lipid panel is within reasonable limits. Continue current meds Anxiety/depression . She was recently seen by Dr. Chavez and she is on Prozac, buspirone and mirtazapine, Haldol and Lexapro was DC'd. We do not have doses at this point which her friend will drop later. Progressive dementia. She is currently on Aricept 10 mg daily. According to her friend she is forgetful and she leaves things on the stove. We recommended that she should not use stole at any time. Because of her worsening dementia and her overall comorbidities we will recommend that she should have micbl-tnx-ujzjb supervision/help at this point she has [employer] SCHOOL TEACHER who comes in for limited hours and rest of the time her friends to care of her. Chronic kidney disease stage IIIb. She does not appear to be volume overload. She is given referral to see shoemaker custom. Avoid NSAIDs. She is on ARB. Anemia. Most likely secondary to chronic kidney disease and she can have iron supplements. 07/15/2024 Anemia, unspecified (ICD-10 - D64.9) Lindsay is 78 years old lady with DM type II, hypertension, hyperlipidemia, obesity, anxiety/depression , progressive dementia and recently she lost her and she is still in a bereavement phase. She is accompanied by her friend today. Plan is as follows DM type II. Her A1c has improved and it is 7.3. Her friends and [employer] SCHO[employer]ER are making sure that she is on a low carbohydrate diet and she is taking her medications as directed. Hypertension/hyper lipidemia. Blood pressure well controlled and lipid panel is within reasonable limits. Continue current meds Anxiety/depression . We will increase Lexapro to 20 mg daily and continue on mirtazapine 45 mg along with haloperidol 0.5 mg daily at bedtime. Progressive dementia. She is currently on Aricept 10 mg daily. According to her friend she is forgetful and she leaves things on the stove. We recommended that she should not use stole at any time. Because of her worsening dementia and her overall comorbidities we will recommend that she should have octlq-hux-oklyo supervision/help at this point she has [employer] SCHOOL TEACHER who comes in for limited hours and rest of the time her friends to care of her. Chronic kidney disease stage IIIb. She does not appear to be volume overload. She is given referral to see shoemaker custom. Avoid NSAIDs. She is on ARB. Anemia. Most likely secondary to chronic kidney disease and she can have iron supplements. 04/21/2024 Encounter for immunization (ICD-10 - Z23) Mrs. Mujica is a 78-year-old lady with DM type II, hypertension, hyperlipidemia, hypothyroidism here for annual wellness visit. Plan is as follows: Type II diabetes mellitus. A1c 8.7. Fasting sugars 187. We took her off on Metformin due to diarrhea. She is not interested in insulin or GLP-1 injectables and insulin. Continue Rybelsus 14 MG, Januvia 100 MG, and Glimepiride 4 MG. Foot care discussed and she sees podiatry and ophthalmology. Check A1c. EKG is normal sinus rhythm at [address]pm with no acute ST or T wave changes, no bundle-branch blocks, normal intervals Hypertension. Blood pressure is still borderline high in the office today. She has memory issues and is noncompliant with her medications. Cut back on sodium intake. Advised appropriate hydration, cardio exercises and weight loss. Continue Amlodipine 10 MG and Telmisartan 80 MG. Hyperlipidemia. Triglycerides 176. LDL 115 Non HDL 146. She is noncompliant with medications. Continue Pravastatin 10 40 MG and Zetia 10 MG, Gemfibrozil 600 MG. Hypothyroidism. Continue Levothyroxine 25 MCG and advised to take it first thing in the morning on an empty stomach. Complaints of memory disturbance. Her memory is declining and she will benefit from having someone to help with her medications. Advised to continue Donepezil 10 MG along with Memantine ER 14 MG. Generalized anxiety disorder./depressi on She recently lost her and she is still on bereavement phase. We we will start her on Lexapro 10 mg and we stopped mirtazapine Insomnia. she is currently on haloperidol which helps with sleep and mood Vitamin D deficiency. She is taking Vitamin D supplements. Impacted cerumen. She can use mineral oil over the counter. Avoid using q-tips Class 2 obesity. Advised dietary restrictions and regimental exercise. Goal is to lose 5-6 lbs a month. Weakness and gait instability. Referred to physical therapy Eye screening. She sees her assistant farm operations manager regularly. Dental screening. She sees dentist regularly. Breast cancer screening. Ordered mammogram Immunizations. She is up-to-date on her COVID and influenza vaccinations. Screening blood work before next appointment. General health concerns discussed with patient. Scribe services used to formulate this note under HIPAA compliance and under [place] law mandated for scribe services. Patient aware of service. Verbal consent and written consent taken from the patient. Patient understands and verbalizes understanding of the scribes services and all questions answered regarding scribes services. Patient agrees to use of scribes services. Plan Of Treatment Pending Test Test Name Order Date Electrocardiogram (EKG) 09/30/2018 MAMMOGRAM, SCREENING 04/21/2024 MICROALBUMIN,URINE 09/30/2018 COMPREHENSIVE METABOLIC PANEL 04/16/2023 COMPREHENSIVE METABOLIC PANEL 08/28/2022 HEMOGLOBIN A1C 04/16/2023 HEMOGLOBIN A1C 12/18/2021 HEMOGLOBIN A1C WITH EST GLUCOSE 08/28/19 LIPID PANEL 08/28/2022 LIPID PANEL 04/16/2023 MICROALBUMIN, URINE 04/16/2023 TSH 04/16/2023 TSH WITH REFLEX TO FT4 08/28/2022 Xray: Chest-Standard Frontal & Lat 06/05 Hemoglobin [id number] 11/11/2024 Lipid Panel-[id number] 02/28/2024 Lipid Panel-[id number] 11/11/2024 Basic Metabolic Panel [id number] Comp. Metabolic Panel [id number] Hemoglobin A1c 02/28/2024 Next Appt Details Provider Name:[place], 02/10/2025 01:30:00 PM, [address] [place] [address], [place], [address], Insurance Providers Payer Name Payer Address Payer Phone Subscriber Number Group Number Insured Name Patient Relationship to Insured Coverage Start Date Coverage End Date [employer] [address] [address] [place] [address] [id number] LINDSAY MUJICA Self - patient is the insured Medical (General) History Medical History History ICD Code Cardiac murmur type 2 diabetes Status post breast cancer and sees oncol omero at [facility] Hypothyroidism hypertension, benign hyperlipidemia Vaginal growth colon polyp ERICK- See Dr Chavez Surgical History Surgery Date(Month/Year) partial hysterectomy 1969's lumpectomy, right breast 2016 Hospitalization History Reason Date(Month/Year) surgeries
== END 2024-12-22 12:34 | disposition home or self-care (01) ==
LOC: HO.HKAS 12:06
PROVIDERS: PCP Hospitalist; Visit Provider Internal Medicine Nephrology
DX: N18.31 Chronic kidney disease, stage 3a (principal); I10 Essential (primary) hypertension
CPT/HCPCS: 99214

== ENCOUNTER → 2024-12-22 12:06 | Outpatient (BNVA) | payer MEDICARE, SELFPAY | PROVIDERS: PCP Hospitalist; Visit Provider Internal Medicine Nephrology | DX: I12.9 Hypertensive chronic kidney disease with stage 1 through stage 4 chronic kidney disease, or unspecified chronic kidney disease (principal); N18.31 Chronic kidney disease, stage 3a | CPT/HCPCS: 99212 ==

== ENCOUNTER 2025-06-22 12:01 | Outpatient (AMB) | payer MEDICARE, SELFPAY ==
--- OUTSIDE RECORDS SUMMARY | 2025-06-17 03:06 | XMS_ITS ---
Author Organization [employer] Address [address] [place] [address] Care Team Providers Care Electric Powerline Examiner Name Role Phone SAMANTHA HENSON Primary Care Provider [phone] REASON FOR VISIT FYI Medications Medication SIG (Take, Route, Frequency, Duration) Notes Start Date End Date Status OneTouch Ultra 2 w/Device use to check b lood sugars Dx: E11.9 Once a day; Duration: 1 Unknown Haloperidol 0.5 MG TAKE 1 TABLET BY MICHAEL TH EVERY DAY; Duration: 30 days Unknown Benzonatate 100 MG 1 capsule as needed Orally Three times a day; Duration: 7 days 06/09/2024 Unknown FLUoxetine HCl 10 MG TAKE 1 CAPSULE BY M OUTH EVERY DAY; Duration: 28 Unknown Benzonatate 100 MG 1 capsule as needed Orally Three times a day; Duration: 7 days 06/04/2024 Unknown OneTouch Ultra Test - USE TO TEST BLOOD SUGARS EVERY DAY; Duration: 50 Unknown FreeStyle Lite Test - as directed In Vit ro to check blood sugars twice a day; Duration: 90 days 06/04/2024 Unknown FreeStyle Lancets - as directed to check blood sugar Dx: E08.40; Duration: 90 days 05/25/2024 Unknown one touch ultra blue in vitro strip - test blood sugar daily Dx: E11.9 in vitro once daily; Duration: 30 days 09/30/2018 Unknown one touch delica lancets - test blood river gars daily dx: E11.9 in vitro once daily; Duration: 30 days 09/30/2018 Unknown FreeStyle Lite Test - as directed to loni ck blood sugar Dx: E08.40 In Vitro Once daily; Duration: 90 days 05/25/2024 Unknown Magnesium Oxide -Mg Supplement 400 MG TAKE 1 CAPSULE BY MOUTH EVERY DAY WITH FOOD; Duration: 28 Unknown FreeStyle Lite w/Device as directed to rosetta ferraro blood sugar Dx: E08.40; Duration: 90 days 05/25/2024 Unknown Rollator - as directed; DX: F03.90, R26.81; Duration: 30 days Lifetime 05/28/2025 Unknown Total Comfort Seat Cushion - as directed; DX: F03.90, R26.81; Duration: 30 days Lifetime 05/28/2025 Unknown Vitamin B-1 50 MG TAKE 1 TABLET BY IMCHAEL TH DAILY; Duration: 28 Unknown Vitamin D3 50 MCG (1999 UT) TAKE 1 CAPSU LE BY MOUTH DAILY; Duration: 28 Unknown Donepezil HCl 10 MG TAKE 1 TABLET BY MICHAEL TH EVERYDAY AT BEDTIME; Duration: 28 Unknown Pravastatin Sodium 40 MG 1 tablet Orally Once a day; Duration: 90 days Unknown Probiotic 250 MG TAKE 1 CAPSULE BY MO UTH DAILY; Duration: 28 Unknown Carvedilol 3.125 MG 1 tablet with food Orally Twice a day; Duration: 90 days Unknown Vitamin C 1000 MG TAKE 1 TABLET BY MICHAEL TH EVERY DAY; Duration: 28 Unknown Gemfibrozil 600 MG TAKE 1 TABLET 30 MIN UTES BEFORE MORNING AND EVENING MEALS ORALLY TWICE A DAY 30 DAYS; Duration: 30 days Unknown Mirtazapine 30 MG TAKE 1 TABLET BY MICHAEL TH AT BEDTIME; Duration: 28 days Unknown Januvia 50 MG TAKE 1 TABLET BY MICHAEL TH EVERY DAY FOR 30 DAYS; Duration: 28 days Unknown Ezetimibe 10 MG TAKE 1 TABLET BY MICHAEL TH EVERY DAY; Duration: 84 Unknown Magnesium Oxide 400 MG 1 tablet with melly d Orally Once a day; Duration: 30 days Unknown Escitalopram Oxalate 20 MG TAKE 1 TABLET BY MOUTH EVERY DAY; Duration: 28 Unknown Levothyroxine Sodium 25 MCG 1 tablet in the morning on an empty stomach Orally Once a day; Duration: 90 days Unknown busPIRone HCl 5 MG 1 tablet Orally Twic e a day; Duration: 90 days Unknown amLODIPine Besylate 10 MG TAKE 1 TABLET BY MOUTH EVERY DAY FOR 90 DAYS; Duration: 84 Unknown Memantine HCl ER 14 MG TAKE 1 CAPSULE BY MOUTH EVERY DAY FOR 30 DAYS; Duration: 84 Unknown Assurance Underpads - Change daily DX: N 39.46; Duration: 90 days 06/10/2024 Unknown Probiotic - as directed Orally o nce a day occasionally; Duration: 30 days Unknown Depend Underwear X-Large - Change up to 4 times daily DX: N39.46; Duration: 90 days 06/10/2024 Unknown Osteo Bi-Flex Adv Double St - as directed Orally daily as needed; Duration: 30 days Unknown Voltaren 1 % as directed External ly twice a day; Duration: 30 days 09/16/2020 Unknown OneTouch Ultra - USE TO TEST BLOOD RIVER GARS EVERY DAY; Duration: 50 Unknown D3 Super Strength 50 MCG (2000 UT) TAKE 1 CAPSULE BY MOUTH TWICE A DAY; Duration: 90 days Unknown Encounters Encounter Location Date Provider Diagnosis [facility] [address] [place] [address] 06/17/2025 SAMANTHA HENSON Plan Of Treatment Next Appt Details Provider Name:[place], 08/12/2025 02:00:00 PM, [address], [place], [address], Progress Notes * Guevara GILBERTOB: 7 (79 yo F)Acc No.[id number]:06/17/2025 Patient: Dilia YARBROUGHelyn :1945 A ge:79 Y S ex:Female Address:[address] [place] [address] Subjective: * Chief Complaints: * F ITALIAN * Medical History: * Surgical History: * Hospitalization/Major Diagno stic Procedure: * Medications: U nknownOneTouch Ultra - Strip USE TO TEST BLOOD SUGARS EVERY DAY Voltaren 1 % Gel as directed Externally twice a day Osteo Bi-Flex Adv Double St - Tablet as directed Orally daily as needed D3 Super Strength 50 MCG (2000 UT) Capsule TAKE 1 CAPSULE BY MOUTH TWICE A DAY Probiotic - Capsule as directed Orally once a day occasionally Depend Underwear X-Large - Miscellaneous Change up to 4 times daily DX: N39.46 Assurance Underpads - Miscellaneous Change daily DX: N39.46 Memantine HCl ER 14 MG Capsule Extended Release 24 Hour TAKE 1 CAPSULE BY MOUTH EVERY DAY FOR 30 DAYS amLODIPine Besylate 10 MG Tablet TAKE 1 TABLET BY MOUTH EVERY DAY FOR 90 DAYS Ezetimibe 10 MG Tablet TAKE 1 TABLET BY MOUTH EVERY DAY busPIRone HCl 5 MG Tablet 1 tablet Orally Twice a day Levothyroxine Sodium 25 MCG Tablet 1 tablet in the morning on an empty stomach Orally Once a day Escitalopram Oxalate 20 MG Tablet TAKE 1 TABLET BY MOUTH EVERY DAY Magnesium Oxide 400 MG Tablet 1 tablet with food Orally Once a day Gemfibrozil 600 MG Tablet TAKE 1 TABLET 30 MINUTES BEFORE MORNING AND EVENING MEALS ORALLY TWICE A DAY 30 DAYS Januvia 50 MG Tablet TAKE 1 TABLET BY MOUTH EVERY DAY FOR 30 DAYS Mirtazapine 30 MG Tablet TAKE 1 TABLET BY MOUTH AT BEDTIME Vitamin C 1000 MG Tablet TAKE 1 TABLET BY MOUTH EVERY DAY Carvedilol 3.125 MG Tablet 1 tablet with food Orally Twice a day Vitamin D3 50 MCG (2000 UT) Capsule TAKE 1 CAPSULE BY MOUTH DAILY Vitamin B-1 50 MG Tablet TAKE 1 TABLET BY MOUTH DAILY Probiotic 250 MG Capsule TAKE 1 CAPSULE BY MOUTH DAILY Pravastatin Sodium 40 MG Tablet 1 tablet Orally Once a day Donepezil HCl 10 MG Tablet TAKE 1 TABLET BY MOUTH EVERYDAY AT BEDTIME Magnesium Oxide -Mg Supplement 400 MG Capsule TAKE 1 CAPSULE BY MOUTH EVERY DAY WITH FOOD Total Comfort Seat Cushion - Miscellaneous as directed; DX: F03.90, R26.81 LifetimeRollator - Miscellaneous as directed; DX: F03.90, R26.81 LifetimeFreeStyle Lite w/Device Kit as directed to check blood sugar Dx: E08.40 FreeStyle Lite Test - Strip as directed to check blood sugar Dx: E08.40 In Vitro Once daily FreeStyle Lancets - Miscellaneous as directed to check blood sugar Dx: E08.40 FreeStyle Lite Test - Strip as directed In Vitro to check blood sugars twice a day OneTouch Ultra Test - Strip USE TO TEST BLOOD SUGARS EVERY DAY one touch delica lancets - Miscellaneous test blood sugars daily dx: E11.9 in vitro once daily one touch ultra blue in vitro strip - strip test blood sugar daily Dx: E11.9 in vitro once daily OneTouch Ultra 2 w/Device Kit use to check blood sugars Dx: E11.9 Once a day Benzonatate 100 MG Capsule 1 capsule as needed Orally Three times a day FLUoxetine HCl 10 MG Capsule TAKE 1 CAPSULE BY MOUTH EVERY DAY Benzonatate 100 MG Capsule 1 capsule as needed Orally Three times a day Haloperidol 0.5 MG Tablet TAKE 1 TABLET BY MOUTH EVERY DAY Medication List reviewed and reconciled with the patientJanicenowmarimar MacdonaldTouch Ultra - Strip USE TO TEST BLOOD SUGARS EVERY DAY Unknown Voltaren 1 % Gel as directed Externally twice a day Unknown Osteo Bi-Flex Adv Double St - Tablet as directed Orally daily as needed Unknown D3 Super Strength 50 MCG (1999 UT) Capsule TAKE 1 CAPSULE BY MOUTH TWICE A DAY Unknown Probiotic - Capsule as directed Orally once a day occasionally Unknown Depend Underwear X-Large - Miscellaneous Change up to 4 times daily DX: N39.46 Unknown Assurance Underpads - Miscellaneous Change daily DX: N39.46 Unknown Memantine HCl ER 14 MG Capsule Extended Release 24 Hour TAKE 1 CAPSULE BY MOUTH EVERY DAY FOR 30 DAYS Unknown amLODIPine Besylate 10 MG Tablet TAKE 1 TABLET BY MOUTH EVERY DAY FOR 90 DAYS Unknown Ezetimibe 10 MG Tablet TAKE 1 TABLET BY MOUTH EVERY DAY Unknown busPIRone HCl 5 MG Tablet 1 tablet Orally Twice a day Unknown Levothyroxine Sodium 25 MCG Tablet 1 tablet in the morning on an empty stomach Orally Once a day Unknown Escitalopram Oxalate 20 MG Tablet TAKE 1 TABLET BY MOUTH EVERY DAY Unknown Magnesium Oxide 400 MG Tablet 1 tablet with food Orally Once a day Unknown Gemfibrozil 600 MG Tablet TAKE 1 TABLET 30 MINUTES BEFORE MORNING AND EVENING MEALS ORALLY TWICE A DAY 30 DAYS Unknown Januvia 50 MG Tablet TAKE 1 TABLET BY MOUTH EVERY DAY FOR 30 DAYS Unknown Mirtazapine 30 MG Tablet TAKE 1 TABLET BY MOUTH AT BEDTIME Unknown Vitamin C 1000 MG Tablet TAKE 1 TABLET BY MOUTH EVERY DAY Unknown Carvedilol 3.125 MG Tablet 1 tablet with food Orally Twice a day Unknown Vitamin D3 50 MCG (1999 UT) Capsule TAKE 1 CAPSULE BY MOUTH DAILY Unknown Vitamin B-1 50 MG Tablet TAKE 1 TABLET BY MOUTH DAILY Unknown Probiotic 250 MG Capsule TAKE 1 CAPSULE BY MOUTH DAILY Unknown Pravastatin Sodium 40 MG Tablet 1 tablet Orally Once a day Unknown Donepezil HCl 10 MG Tablet TAKE 1 TABLET BY MOUTH EVERYDAY AT BEDTIME Unknown Magnesium Oxide -Mg Supplement 400 MG Capsule TAKE 1 CAPSULE BY MOUTH EVERY DAY WITH FOOD Unknown Total Comfort Seat Cushion - Miscellaneous as directed; DX: F03.90, R26.81 LifetimeUnknown Rollator - Miscellaneous as directed; DX: F03.90, R26.81 LifetimeUnknown FreeStyle Lite w/Device Kit as directed to check blood sugar Dx: E08.40 Unknown FreeStyle Lite Test - Strip as directed to check blood sugar Dx: E08.40 In Vitro Once daily Unknown FreeStyle Lancets - Miscellaneous as directed to check blood sugar Dx: E08.40 Unknown FreeStyle Lite Test - Strip as directed In Vitro to check blood sugars twice a day Unknown OneTouch Ultra Test - Strip USE TO TEST BLOOD SUGARS EVERY DAY Unknown one touch delica lancets - Miscellaneous test blood sugars daily dx: E11.9 in vitro once daily Unknown one touch ultra blue in vitro strip - strip test blood sugar daily Dx: E11.9 in vitro once daily Unknown OneTouch Ultra 2 w/Device Kit use to check blood sugars Dx: E11.9 Once a day Unknown Benzonatate 100 MG Capsule 1 capsule as needed Orally Three times a day Unknown FLUoxetine HCl 10 MG Capsule TAKE 1 CAPSULE BY MOUTH EVERY DAY Unknown Benzonatate 100 MG Capsule 1 capsule as needed Orally Three times a day Unknown Haloperidol 0.5 MG Tablet TAKE 1 TABLET BY MOUTH EVERY DAY Medication List reviewed and reconciled with the patient Objective: * Vitals: * Physical Examination: Assessment: Plan: * Treatment: * Procedure Codes: * true * Date: Generated for Mai herman/Savanna/Haydee on: 08/22/2024 03:47 PM EST
--- NOTE | 2025-06-22 12:08 | HO.NEPHOV_ITS ---
Vital Signs 06/22/25 12:11 Height 5 ft 5 in Weight 210 lb 6 oz BMI 35.0 BP 120/62 Blood Pressure Location Lt brachial Position Sitting Pulse 53 Pulse Source Pulse Oximeter Pulse Oximetry (%) 96 Oxygen Delivery Method Room Air Intake Visit Reasons: 6mon follow-up w/labs-Conf W/Sasha Commercial Credit Analyst Required: No Accompanied by: Other Relationship Allergies amoxicillin (From Augmentin) Allergy (Verified 06/22/25 12:11) Diarrhea clavulanic acid (From Augmentin) Allergy (Verified 06/22/25 12:11) Diarrhea Iodinated Contrast Media Allergy (Verified 06/22/25 12:11) Unknown morphine Allergy (Verified 06/22/25 12:11) Unknown Ymeqpnm-ACY-QoH Reductase Inhibitor Allergy (Verified 06/22/25 12:11) Unknown HPI Comments Details: Peyton was seen in follow up for her CKD. She has H/O vascular dementia as well as DM and HTN. She is on SGLT2i as well as ARB. She does not have any nausea, vomiting, diarrhea, PND, orthopnea or orthostatic symptoms. She does not take NSAID's. She does not maintain good hydration. She does not have any epistaxis, photosensitivity, hematuria, recent antibiotic intake, joint swelling, skin rashes. She does not have any CAD, CVA, CHF or documented PAD. Her serum creatinine is at baseline now. [facility] Medical History (Updated 09/22/24 @ 12:07 by Jared Duarte MD) Alzheimer dementia Vascular dementia ERICK (generalized anxiety disorder) Colon polyp Hyperlipidemia Hypertension, benign Hypothyroidism Type 2 diabetes mellitus Cardiac murmur Surgical History H/O lumpectomy History of hysterectomy Family History Mother Hypertension Social History Alcohol intake: former Patient Tobacco Use Status: Former Tobacco user Review of Systems Const All systems reviewed & are unremarkable except as noted in HPI and below Physical Exam Const General: comfortable and no acute distress Orientation/consciousness: patient oriented x3 HEENT Head: Yes normocephalic Mouth: Normal oral and palatal mucosa present Eyes EOM: EOMs intact bilaterally Neck Neck: Yes supple Resp Auscultation: clear to auscultation bilaterally Cardio Jugular venous distension: no JVD Rate: regular rate GI Palpation (GI): Soft to palpation Auscultation: normal bowel sounds General: Yes no CVA tenderness Back/Spine/Pelvis Back: no CVA tenderness Skin General skin exam: no rashes or lesions noted Neuro General: patient oriented x3 and moves all extremities Extrem General: Yes no pedal edema Assessment & Plan Assessment & Plan (1) CKD stage 3a, GFR 45-59 ml/min: Code(s): N18.31 - Chronic kidney disease, stage 3a Category: Medical (2) Hypertension, benign: Code(s): I10 - Essential (primary) hypertension Category: Medical Plan 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 Her UO is good and there is no reason to suspect obstructive uropathy. She is on ARB as well as semaglutide. She should maintain good hydration. I ordered follow up blood work. I did not make any medication changes today but rather discussed all these with her and person who accompanied her. F/U given Orders: Orders Creatinine 6 Months I10 - Essential (primary) hypertension, N18.31 - Chronic kidney disease, stage 3a Blood Urea Nitrogen 6 Months I10 - Essential (primary) hypertension, N18.31 - Chronic kidney disease, stage 3a Electrolytes 6 Months I10 - Essential (primary) hypertension, N18.31 - Chronic kidney disease, stage 3a Coding Level of Care Code Est Pt Level 4 (31581) Diagnoses CKD stage 3a, GFR 45-59 ml/min N18.31 Hypertension, benign I10
[2025-06-22 12:11] VITALS: BP 120/62; PULSE 53; O2SAT 96; BMI 35.0
--- OUTSIDE RECORDS SUMMARY | 2025-06-22 15:47 | XMS_ITS | Encounter Summary ---
Author Organization [facility] Address [address] [place] [address] Care Team Providers Care Staff Psychologist Name Role Phone Juvenal Valadez MD Primary Care Provider [phone] Encounter Details Date Type Department Care Team (Late st Contact Info) Description 05/30/2016 Scanned Document [facility] General Surgery [place] [phone] Edward Fang MD Social History Tobacco Use Types Packs/Day Years Used Date Smoking Tobacco: Never Assessed Comments Unknown Sex and Gender Information Value Date Recorded Sex Assigned at Not on file Legal Sex Female 12:35 PM EDT Gender Identity Not on file Sexual Orientation Not on file documented as of this encounter Plan of Treatment Not on file documented as of this encounter Visit Diagnoses Not on filedocumented in this encounter Care Teams Staff Psychologist Relationship Specialty Start Date End Date Juvenal Valadez MD [address] [place] [address] PCP - General Internal Medicine 03/07/16 documented as of this encounter
--- OUTSIDE RECORDS SUMMARY | 2025-06-22 15:47 | XMS_ITS | Clinical Summary ---
Author Organization [facility] Address [address] [place] [address] Care Team Providers Care Airplane Woodworker Name Role Phone Juvenal Valadez MD Primary Care Provider [phone] Allergies Active Allergy Reactions Criticality Noted Date Comments Iodinated Contrast Media Rash/Dermatitis Medium 2015 Morphine Rash/Dermatitis Medium 06/05/2016 Medications exemestane (AROMASIN) 25 MG tablet Take 25 [...] drink = 0.6 oz pur e alcohol) Comments Unknown Sex and Gender Information Value Date Recorded Sex Assigned at Not on file Legal Sex Female 12:35 PM EDT Gender Identity Not on file Sexual Orientation Not on file Last Filed Vital Signs Vital Sign Reading Time Taken Comments Blood Pressure 176/84 07/06/2016 11:17 AM EST Pulse 62 07/06/2016 11:17 AM EST Temperature 36.5 C (97.7 F) 07/06/2016 11:17 AM EST Respiratory Rate 18 07/06/2016 11:17 AM EST Oxygen Saturation 97% 07/06/2016 11:17 AM EST Inhaled Oxygen Concentration - - Weight 95.3 kg (210 lb) 07/06/2016 9:00 AM EST Height 166.4 cm (5' 5.5 ) 07/06/2016 9:00 AM EST Body Mass Index 34.41 07/06/2016 9:00 AM EST Plan of Treatment Health Maintenance Due Date Last Done Comments Advance Care Planning 1945 Hepatitis C Virus Screening 1945 COVID-19 Vaccine (#1) 10/08/1951 DTaP/Tdap/Td Vaccines (1 - Tdap) 1965 Pneumococcal Vaccines 50+ (1 of 1 - PCV) 1996 Zoster (Shingles) Vaccine (1 of 2) 1996 DXA Bone Density (Females,Ages 65 and older) 10/08/2011 RSV Vaccine 50 years and older and Patients (1 - 1-dose 75+ series) 2021 Influenza Vaccine 02/26/2025 Mammogram Discontinued 08/19/2015, 100 07/2013, 04/23/2014, Additional history exists Colonoscopy Discontinued [...] 2:51 PM EST Final Report CLINICAL INDICATIONS: ROUTINE [facility] 8012 - DIGITAL MAMMO BILAT SCREENING - Aug 17 2015 3:03PM Acc#: [id number] RESULT: History: ROUTINE Exam: Bilateral digital mammography [...] study (CAD) Interpreting Physician: KALE GREGORY M.D. Procedure Note Provider, MD Erich - 11/16/2015 Final Report CLINICAL INDICATIONS: ROUTINE [facility] 8012 - DIGITAL MAMMO BILAT SCREENING - Aug 17 2015 3:03PM Acc#: [id number] RESULT: History: ROUTINE Exam: Bilateral digital mammography [...] study (CAD) Interpreting Physician: KALE GREGORY M.D. us Conversion Provider MD [facility] Fin al Result from Last 3 Months or Most Recently Relevant to Health Maintenance Insurance MEDICARE PART A & B [facility] PPO Advance Directives * Full Code (Latest Code Status on File) Date Activated Date Inactivated Comments 07/06/2016 9:25 AM 07/06/2016 2:06 PM Care Teams Airplane Woodworker Relationship Specialty Start Date End Date Juvenal Valadez MD [address] [place] [id number] PCP - General Internal Medicine 03/07/16
--- OUTSIDE RECORDS SUMMARY | 2025-06-22 15:47 | XMS_ITS | Encounter Summary ---
Author Organization [facility] Address [address] [place] [address] Care Team Providers Care Pre Algebra Teacher Name Role Phone Juvenal Valadez MD Primary Care Provider [phone] Encounter Details Date Type Department Care Team (Late st Contact Info) Description 02/09/2016 Scanned Document [facility] General Surgery [place] [phone] Edward Fang MD Social History Tobacco Use [...] on filedocumented in this encounter Care Teams Pre Algebra Teacher Relationship Specialty Start Date End Date Juvenal Valadez MD [address] [place] [address] PCP - General Internal Medicine 03/07/16 documented as of this encounter
--- OUTSIDE RECORDS SUMMARY | 2025-06-22 15:47 | XMS_ITS ---
Author Name [facility] Organization Unknown Encounters Encounter Type Encounter Reason Primary Diagnosis Location Date Ambulatory [facility] 05/26/2024 Care Team Organization Name Specialty Phone Email Start Date End Da te [facility]2024 [facility] 01/04/2023 [facility] Juvenal [facility]
--- OUTSIDE RECORDS SUMMARY | 2025-06-22 15:47 | XMS_ITS | Encounter Summary ---
Author Organization [facility] Address [address] [place] [address] Care Team Providers Care Group Insurance Specialist Name Role Phone Juvenal Valadez MD Primary Care Provider [phone] Encounter Details Date Type Department Care Team (Late st Contact Info) Description 08/24/2016 Scanned Document [facility] General Surgery [address] [phone] Edward Fang MD Social History Tobacco Use [...] on filedocumented in this encounter Care Teams Group Insurance Specialist Relationship Specialty Start Date End Date Juvenal Valadez MD [address] [place] [id number] PCP - General Internal Medicine 03/07/16 documented as of this encounter
--- OUTSIDE RECORDS SUMMARY | 2025-06-22 15:47 | XMS_ITS | Patient Health Record ---
Author Organization [facility] Address [address] [place] [address] [address] [place] [address] Care Team Providers Care Shelver Name Role Phone SIXTO SINGH Primary Care Provider Phoebe Douglass Unavailable [phone] Allergies Allergen (clinical drug ingredient) Drug/Non Drug Allergy documented on EMR Reaction Allergy Type Onset Date Status IV Dye (uncoded) Unknown Allergy Act harley amoxicillin / clavulanate Augmentin diarrhea Drug Allergy Active morphine Morphine Sulfate Unknown Drug Allergy Active Statins Support Unknown Drug Allergy A ctive Results Component Value Reference Range Notes Basic Metabolic Panel (7)-2 Reviewed date:11/11/2024 01:39:23 PM Interpretation: Performing Lab:[facility], [address] [facility], Phone - [phone], Director - MDDu Notes/Report: Glucose 115 70-99 mg/dL BUN 29 8-27 mg/dL Creatinine 0.96 0.57-1.00 mg/dL eGFR 61 >59 mL/min/1.73 BUN/Creatinine Ratio 30 12-28 Sodium 143 134-144 mmol/L Potassium 4.5 3.5-5.2 mmol/L Chloride 109 96-106 mmol/L Carbon Dioxide, Total 15 20-29 mmol/L Basic Metabolic Panel (7)- 8855 Reviewed date:02/09/2025 11:59:46 AM Interpretation: Performing Lab:[facility], [address] [facility], Phone - [phone], Director - MDJodry Notes/Report: Glucose 54 70-99 mg/dL BUN 24 8-27 mg/dL Creatinine 1.23 0.57-1.00 mg/dL eGFR 45 >59 mL/min/1.73 BUN/Creatinine Ratio 20 12-28 Sodium 140 134-144 mmol/L Potassium 4.8 3.5-5.2 mmol/L Chloride 109 96-106 mmol/L Carbon Dioxide, Total 17 20-29 mmol/L Lipid Panel-[id number] Reviewed date:02/09/2025 12:00:02 PM Interpretation: [facility]forming [facility], [address] [place] [address], Phone - [phone], Director - Lucho Notes/Report: Cholesterol, Total 153 100-199 mg/dL Triglycerides 70 0-149 mg/dL HDL Cholesterol 41 >39 mg/dL VLDL Cholesterol Adán 14 5-40 mg/dL LDL Chol Calc (NIH) 98 0-99 mg/dL Urinalysis, Routine-[id number] Reviewed date:11/11/2024 01:38:59 PM Interpretation: Performing Lab:[facility] [place], [address] [place] [address], Phone - [phone], Director - Lucho Notes/Report: Specific [place] TNP Test not performed. Patient was unable to provide a self-collected specimen for the requested testing. The following test(s) were not performed: pH TNP Test not perfor med Protein TNP Test not perfor med Glucose TNP Test not perfor med Ketones TNP Test not perfor med Urinalysis, Routine-[id number] Reviewed date:11/11/2024 01:39:53 PM Interpretation: Performing Lab:[facility] [place], [address] [place] [address], Phone - [phone], Director - Lucho Notes/Report: Specific [place] TNP Test not performed. Patient was unable to provide a self-collected specimen for the requested testing. The following test(s) were not performed: Hemoglobin [id number] Reviewed date:11/11/2024 01:39:39 PM Interpretation: Performing Lab:[facility], [address] [place] [address], Phone - [phone], Director - Lucho Notes/Report: Hemoglobin A1c 7.0 4.8-5.6 % . Prediabetes: 5.7 - 6.4 Diabetes: >6.4 Glycemic control for adults with diabetes: <7.0 Request Problem TNP Test not performed. Patient was unable to provide a self-collected specimen for the requested testing. The following test(s) were not performed: TEST: [id number] Urinalysis, Routine Hemoglobin [id number] Reviewed date:02/09/2025 11:58:38 AM Interpretation: Performing Lab:[facility], [address], [place], Phone - [phone], Director - Lucho Notes/Report: Hemoglobin A1c 6.9 4.8-5.6 % . Prediabetes: 5.7 - 6.4 Diabetes: >6.4 Glycemic control for adults with diabetes: <7.0 Reason For Referral Reason CKD STAGE 3B- DR KOLTON JONES Referral Organization [facility] Referring Provider First Name SINGH Referring Provider Last Name [facility] Referring Provider Speciality [facility] Referred Provider Specialty Nephrology Referral Priority Routine Reason Chronic kidney disea se - Dr Duarte please evaluate and treat Diagnosis 1 Chronic kidney disea se, unspecified (N18.9) Referral Organization [facility] Referring Provider First Name SAMANTHA Referring Provider Last Name [facility] Referring Provider Speciality [facility] Referred Provider Specialty Nephrology General Notes REFERRAL WAS FAXED [facility] PLEASE CONTACT PATIENT FOR SCHEDULING, Lizzy Lee 08/17/2024 02:39:25 PM > Referral Priority Routine Reason [facility] Diagnosis 1 Major depressive dis order, recurrent, moderate (F33.1) Referral Organization [facility] Referring Provider First Name Phoebe Referring Provider Last Name Evonne Referred Provider Specialty Psychiatry General Notes Faxed to Dr. Vladislav morrow Please call the patient to schedule the appointment, Hallie Lewis 02/23/2025 10:28:41 AM > Referral Priority Routine Medications Medication SIG (Take, Route, Frequency, Duration) Notes Start Date End Date Status Ezetimibe 10 MG TAKE 1 TABLET BY MICHAEL TH EVERY DAY; Duration: 84 Unknown OneTouch Ultra Test - USE TO TEST BLOOD SUGARS EVERY DAY; Duration: 50 Unknown amLODIPine Besylate 10 MG TAKE 1 TABLET BY MOUTH EVERY DAY FOR 90 DAYS; Duration: 84 Unknown FreeStyle Lite Test - as directed In Vit ro to check blood sugars twice a day; Duration: 90 days 06/04/2024 Unknown Memantine HCl ER 14 MG TAKE 1 CAPSULE BY MOUTH EVERY DAY FOR 30 DAYS; Duration: 84 Unknown Assurance Underpads - Change daily DX: N 39.46; Duration: 90 days 06/10/2024 Unknown FreeStyle Lite Test - as directed to loni ck blood sugar Dx: E08.40 In Vitro Once daily; Duration: 90 days 05/25/2024 Unknown Magnesium Oxide 400 MG 1 tablet with melly d Orally Once a day; Duration: 30 days Unknown OneTouch Ultra 2 w/Device use to check b lood sugars Dx: E11.9 Once a day; Duration: 1 Unknown Levothyroxine Sodium 25 MCG 1 tablet in the morning on an empty stomach Orally Once a day; Duration: 90 days Unknown one touch ultra blue in vitro strip - test blood sugar daily Dx: E11.9 in vitro once daily; Duration: 30 days 09/30/2018 Unknown busPIRone HCl 5 MG 1 tablet Orally Twic e a day; Duration: 90 days Unknown one touch delica lancets - test blood river gars daily dx: E11.9 in vitro once daily; Duration: 30 days 09/30/2018 Unknown Depend Underwear X-Large - Change up to 4 times daily DX: N39.46; Duration: 90 days 06/10/2024 Unknown FreeStyle Lite w/Device as directed to c heck blood sugar Dx: E08.40; Duration: 90 days 05/25/2024 Unknown Rollator - as directed; DX: F03.90, R26.81; Duration: 30 days Lifetime 05/28/2025 Unknown Total Comfort Seat Cushion - as directed; DX: F03.90, R26.81; Duration: 30 days Lifetime 05/28/2025 Unknown Gemfibrozil 600 MG TAKE 1 TABLET 30 MIN UTES BEFORE MORNING AND EVENING MEALS ORALLY TWICE A DAY 30 DAYS; Duration: 30 days Unknown FreeStyle Lancets - USE TO CHECK BLOOD S UGAR ONCE DAILY DIRECTED; Duration: 90 Active Vitamin B-1 50 MG TAKE 1 TABLET BY MICHAEL TH DAILY; Duration: 28 Unknown Vitamin D3 50 MCG (1999 UT) TAKE 1 CAPSU LE BY MOUTH DAILY; Duration: 28 Unknown Carvedilol 3.125 MG 1 tablet with food Orally Twice a day; Duration: 90 days Unknown Vitamin C 1000 MG TAKE 1 TABLET BY MICHAEL TH EVERY DAY; Duration: 28 Unknown Osteo Bi-Flex Adv Double St - as directed Orally daily as needed; Duration: 30 days Unknown Magnesium Oxide -Mg Supplement 400 MG TAKE 1 CAPSULE BY MOUTH EVERY DAY WITH FOOD; Duration: 28 Unknown Voltaren 1 % as directed External ly twice a day; Duration: 30 days 09/16/2020 Unknown Donepezil HCl 10 MG TAKE 1 TABLET BY MICHAEL TH EVERYDAY AT BEDTIME; Duration: 28 Unknown OneTouch Ultra - USE TO TEST BLOOD [place] GARS EVERY DAY; Duration: 50 Unknown Pravastatin Sodium 40 MG 1 tablet Orally Once a day; Duration: 90 days Unknown Probiotic 250 MG TAKE 1 CAPSULE BY MO MIH DAILY; Duration: 28 Unknown Mirtazapine 30 MG TAKE 1 TABLET BY MICHAEL TH AT BEDTIME; Duration: 28 days Unknown Haloperidol 0.5 MG TAKE 1 TABLET BY MICHAEL TH EVERY DAY; Duration: 30 days Unknown Januvia 50 MG TAKE 1 TABLET BY MICHAEL TH EVERY DAY FOR 30 DAYS; Duration: 28 days Unknown Benzonatate 100 MG 1 capsule as needed Orally Three times a day; Duration: 7 days 06/09/2024 Unknown FLUoxetine HCl 10 MG TAKE 1 CAPSULE BY OUT EVERY DAY; Duration: 28 Unknown Benzonatate 100 MG 1 capsule as needed Orally Three times a day; Duration: 7 days 06/04/2024 Unknown Probiotic - as directed Orally o nce a day occasionally; Duration: 30 days Unknown D3 Super Strength 50 MCG (1999 UT) TAKE 1 CAPSULE BY MOUTH TWICE A DAY; Duration: 90 days Unknown Escitalopram Oxalate 20 MG 1 tablet Oral ly Once a day; Duration: 90 days Active Immunizations Vaccine Route Administration Date Status Comme nts COVID Moderna Unknown 01/25/2021 Administered COVID Moderna Unknown 02/22/2021 Administered COVID Moderna Unknown 08/25/2021 Administered Fluzone High Dose 78872 IM Intramuscular 04/21/2024 Admini stered Social History [...] W/U Status Risk Notes Problem Tinea unguium (446135007) Tinea unguium (B35.1) Active confirmed Problem Tinea pedis (8620087) Tinea pedis (B35.3) Active confirmed Problem Anemia (702943896) Anemia, unspecified (D64.9) Active confirmed Problem Hypothyroidism (18744645) Hypothyroidism, unspecified (E03.9) Active confirmed Problem Diabetic neuropathy (628531948) Diabetes mellitus due to underlying condition with diabetic neuropathy, unspecified (E08.40) Active confirmed Problem Diabetic renal disease (083028832) Type 2 diabetes mellitus with diabetic chronic kidney disease (E11.22) Active confirmed Problem Disorder due to type 2 diabetes mellitus (423453663) Type 2 diabetes mellitus with unspecified complications (E11.8) Active confirmed Problem Vitamin D deficiency (23496024) Vitamin D deficiency, unspecified (E55.9) Active confirmed Problem Morbid obesity (disorder) (243269198) Morbid (severe) obesity due to excess calories (E66.01) Active confirmed Problem Mixed hyperlipidemia (277641865) Mixed hyperlipidemia (E78.2) Active confirmed Problem Moderate recurrent major depression (03605189) Major depressive disorder, recurrent, moderate (F33.1) Active confirmed Problem Generalized anxiety disorder (40535059) Generalized anxiety disorder (F41.1) Active confirmed Problem Insomnia (186872682) Insomnia, unspecified (G47.00) Active confirmed Problem Sensorineural hearing loss (25126570) Unspecified sensorineural hearing loss (H90.5) Active confirmed Problem Pain in limb (79059465) Pain in left hand (M79.642) Active confirmed Problem Age-related osteoporosis (074339026) Age-related osteoporosis without current pathological fracture (M81.0) Active confirmed Problem Chronic kidney disease (917093033) Chronic kidney disease, unspecified (N18.9) Active confirmed Problem Heart murmur (finding) (94309716) Cardiac murmur, unspecified (R01.1) Active confirmed Problem Abnormal gait (71136637) Unsteadiness on feet (R26.81) Active confirmed Problem Fatigue (81530779) Other fatigue (R53.83) Active confirmed Problem Adult health examination (250612480) Encounter for general adult medical examination without abnormal findings (Z00.00) Active confirmed Problem Personal history of primary malignant neoplasm of breast (271301457) Personal history of malignant neoplasm of breast (Z85.3) Active confirmed Problem Essential hypertension (89724993) Essential (primary) hypertension (I10) Active confirmed Problem Amnesia (06506770) Complaints of memory disturbance (R41.3) Active confirmed Problem Chronic kidney disease stage 3A (disorder) (953161995) Chronic kidney disease, stage 3a (N18.31) Active confirmed Problem Anxiety (61051823) Anxiety (F41.9) Active confirmed Problem Dementia (40491851) Unspecified dementia, unspecified severity, without behavioral disturbance, psychotic disturbance, mood disturbance, and anxiety (F03.90) Active confirmed Vital Signs Heart Rate 71 /min 03/31/2025 Temperature 96.2 degrees Fahrenheit 03/31/2025 Blood pressure diastolic 70 mm Hg 03/31/2025 Oximetry 94 % 03/31/2025 Height 64.76 in 03/31/2025 Blood pressure systolic 120 mm Hg 03/31/2025 Weight 210.5 lbs 03/31/2025 BMI 35.29 kg/m2 03/31/2025 Encounters Encounter Location Date Provider Diagnosis [address] [address] 07/15/2024 ISNGH GUL Diabetes mellitus du e to underlying condition with diabetic neuropathy, unspecified E08.40 ; Essential (primary) hypertension I10 ; Hypothyroidism, unspecified E03.9 ; Complaints of memory disturbance R41.3 ; Generalized anxiety disorder F41.1 ; Major depressive disorder, recurrent, moderate F33.1 and Anemia, unspecified D64.[address] [address] 08/12/2024 SINGH GUL Diabetes mellitus du e to underlying condition with diabetic neuropathy, unspecified E08.40 ; Essential (primary) hypertension I10 ; Hypothyroidism, unspecified E03.9 ; Complaints of memory disturbance R41.3 ; Generalized anxiety disorder F41.1 ; Major depressive disorder, recurrent, moderate F33.1 and Anemia, unspecified D64.[address] [address] 11/11/2024 Phoebe Douglass Diabetes mellitus du e to underlying condition with diabetic neuropathy, unspecified E08.40 ; Essential (primary) hypertension I10 ; Hypothyroidism, unspecified E03.9 ; Complaints of memory disturbance R41.3 ; Generalized anxiety disorder F41.1 ; Major depressive disorder, recurrent, moderate F33.1 and Anemia, unspecified D64.9 [facility] [address] [place] [address] 02/10/2025 Phoebe Douglass Diabetes mellitus du e to underlying condition with diabetic neuropathy, unspecified E08.40 ; Type 2 diabetes mellitus with diabetic chronic kidney disease E11.22 ; Chronic kidney disease, stage 3a N18.31 ; Essential (primary) hypertension I10 ; Hypothyroidism, unspecified E03.9 ; Complaints of memory disturbance R41.3 ; Generalized anxiety disorder F41.1 and Major depressive disorder, recurrent, moderate F33.[address] [place] [address] 03/31/2025 Phoebe Douglass Diabetes mellitus du e to underlying condition with diabetic neuropathy, unspecified E08.40 ; Hospital discharge follow-up Z09 ; Type 2 diabetes mellitus with diabetic chronic kidney disease E11.22 ; Chronic kidney disease, stage 3a N18.31 ; Essential (primary) hypertension I10 ; Hypothyroidism, unspecified E03.9 ; Complaints of memory disturbance R41.3 ; Generalized anxiety disorder F41.1 and Major depressive disorder, recurrent, moderate F33.[address] [place] [address] 06/23/[address] [place] [address] 06/24/[address] [place] [address] 07/02/[address] [place] [address] 07/31/[address] [place] [address] 08/17/[address] [place] [address] 09/03/[address] [place] [address] 12/15/2024 [facility] [address] [place] [address] 12/16/[address] [place] [address] 12/28/[address] [place] [address] 03/24/[address] [place] [address] 03/25/2025 [facility] Unsteadiness on feet R26.[address] [place] [address] 03/25/[address] [place] [address] 04/05/[address] [place] [address] 05/25/[address] [place] [address] 05/27/[address] [place] [address] 06/17/2025 [facility] Assessments Encounter Date Diagnosis (ICD Code) Assessment Notes Treatment Notes Treatment Clinical Notes Section Notes 07/15/2024 Diabetes mellitus due to underlying condition with diabetic neuropathy, unspecified (ICD-10 - E08.40) Peyton is 78 years old lady with DM type II, hypertension, hyperlipidemia, obesity, anxiety/depressio n, progressive dementia and recently she lost her and she is still in a bereavement phase. She is accompanied by her friend today. Plan is as follows DM type II. Her A1c has improved and it is 7.3. Her friends and WINDOWS SECURITY ENGINEER are making sure that she is on a low carbohydrate diet and she is taking her medications as directed. Hypertension/hype rlipidemia. Blood pressure well controlled and lipid panel is within reasonable limits. Continue current meds Anxiety/depressio n. We will increase Lexapro to 20 mg [...] we will recommend that she should have vyrxn-ued-ldqtn supervision/help at this point she has WINDOWS SECURITY ENGINEER who comes in for limited hours and rest of the time her friends to care of her. Chronic kidney disease stage IIIb. She does not appear to be volume overload. She is given referral to see banquet set up person. Avoid NSAIDs. She is on ARB. Anemia. Most likely secondary to chronic kidney disease and she can have iron supplements. 07/15/2024 Essential (primary) hypertension (ICD-10 - I10) Peyton is 78 years old lady with DM type II, hypertension, hyperlipidemia, obesity, anxiety/depressio n, progressive dementia and recently she lost her and she is still in a bereavement phase. She is accompanied by her friend today. Plan is as follows DM type II. Her A1c has improved and it is 7.3. Her friends and WINDOWS SEC[employer]INEER are making sure that she is on a low carbohydrate diet and she is taking her medications as directed. Hypertension/hype rlipidemia. Blood pressure well controlled and lipid panel is within reasonable limits. Continue current meds Anxiety/depressio n. We will increase Lexapro to 20 mg [...] we will recommend that she should have nbqch-pdk-qydit supervision/help at this point she has WINDOWS SECUR[employer] ENGINEER who comes in for limited hours and rest of the time her friends to care of her. Chronic kidney disease stage IIIb. She does not appear to be volume overload. She is given referral to see banquet set up person. Avoid NSAIDs. She is on ARB. Anemia. Most likely secondary to chronic kidney disease and she can have iron supplements. 08/12/2024 Diabetes mellitus due to underlying condition with diabetic neuropathy, unspecified (ICD-10 - E08.40) Peyton is 78 years old lady with DM type II, hypertension, hyperlipidemia, obesity, anxiety/depressio n, progressive dementia and recently she lost her and she is still in a bereavement phase. She is accompanied by her friend today. Plan is as follows DM type II. Her A1c has improved and it is 7.3. Her friends and W[employer]ER are making sure that she is on a low carbohydrate diet and she is taking her medications as directed. Hypertension/hype rlipidemia. Blood pressure well controlled and lipid panel is within reasonable limits. Continue current meds Anxiety/depressio n. She was recently seen by Dr. Chavez [...] we will recommend that she should have vnejl-adg-huztv supervision/help at this point she has WINDOWS SEC[employer] ENGINEER who comes in for limited hours and rest of the time her friends to care of her. Chronic kidney disease stage IIIb. She does not appear to be volume overload. She is given referral to see banquet set up person. Avoid NSAIDs. She is on ARB. Anemia. Most likely secondary to chronic kidney disease and she can have iron supplements. 08/12/2024 Essential (primary) hypertension (ICD-10 - I10) Peyton is 78 years old lady with DM type II, hypertension, hyperlipidemia, obesity, anxiety/depressio n, progressive dementia and recently she lost her and she is still in a bereavement phase. She is accompanied by her friend today. Plan is as follows DM type II. Her A1c has improved and it is 7.3. Her friends and WINDOWS SECUR[employer] ENGINEER are making sure that she is on a low carbohydrate diet and she is taking her medications as directed. Hypertension/hype rlipidemia. Blood pressure well controlled and lipid panel is within reasonable limits. Continue current meds Anxiety/depressio n. She was recently seen by Dr. Chavez [...] we will recommend that she should have ordkc-jkh-wakic supervision/help at this point she has WINDOWS SEC[employer] ENGINEER who comes in for limited hours and rest of the time her friends to care of her. Chronic kidney disease stage IIIb. She does not appear to be volume overload. She is given referral to see banquet set up person. Avoid NSAIDs. She is on ARB. Anemia. Most likely secondary to chronic kidney disease and she can have iron supplements. 11/11/2024 Diabetes mellitus due to underlying condition with diabetic neuropathy, unspecified (ICD-10 - E08.40) Peyton is 79 years old lady with DM type II, hypertension, hyperlipidemia, obesity, anxiety/depressio n, progressive dementia and recently she lost her and she is still in a bereavement phase. She is accompanied by her friend today. Plan is as follows DM type II. Her A1c has improved and it is 7.1. Her friends and WINDOWS SECUR[employer] ENGINEER are making sure that she is on a low carbohydrate diet and she is taking her medications as directed. Hypertension/hype rlipidemia. Blood pressure well controlled and lipid panel is within reasonable limits. Continue current meds Anxiety/depressio n. She was recently seen by Dr. Chavez and she is on Prozac, buspirone and mirtazapine. There is question of prozac vs lexapro. WINDOWS SECURITY ENGINEER will update us on the medication list. [...] we will recommend that she should have udemg-ypd-ufcwh supervision/help at this point she has W[employer]OWS SEC[employer] ENGINEER who comes in for limited hours and rest of the time her friends to care of her. Chronic kidney disease stage IIIb. She does not appear to be volume overload. She is given referral to see banquet set up person. Avoid NSAIDs. She is on ARB. Anemia. Most likely secondary to chronic kidney disease and she can have iron supplements. I have rendered the services for this patient under direct supervision of Dr. Parra, who did not see the patient but was available upon request 11/11/2024 Essential (primary) hypertension (ICD-10 - I10) Peyton is 79 years old lady with DM type II, hypertension, hyperlipidemia, obesity, anxiety/depressio n, progressive dementia and recently she lost her and she is still in a bereavement phase. She is accompanied by her friend today. Plan is as follows DM type II. Her A1c has improved and it is 7.1. Her friends and WINDOWS SECURITY ENGINEER are making sure that she is on a low carbohydrate diet and she is taking her medications as directed. Hypertension/hype rlipidemia. Blood pressure well controlled and lipid panel is within reasonable limits. Continue current meds Anxiety/depressio n. She was recently seen by Dr. Chavez and she is on Prozac, buspirone and mirtazapine. There is question of prozac vs lexapro. WINDOWS SECURITY ENGINEER will update us on the medication list. [...] we will recommend that she should have cdjme-olr-ypsji supervision/help at this point she has WINDOWS SEC[employer] ENGINEER who comes in for limited hours and rest of the time her friends to care of her. Chronic kidney disease stage IIIb. She does not appear to be volume overload. She is given referral to see banquet set up person. Avoid NSAIDs. She is on ARB. Anemia. Most likely secondary to chronic kidney disease and she can have iron supplements. I have rendered the services for this patient under direct supervision of Dr. Parra, who did not see the patient but was available upon request 02/10/2025 Diabetes mellitus due to underlying condition with diabetic neuropathy, unspecified (ICD-10 - E08.40) Peyton is 79 years old lady with DM type II, hypertension, hyperlipidemia, obesity, anxiety/depressio n, progressive dementia is here today for follow-up. Plan is as follows DM type II. Her A1c has improved and it is 6.9. She is on the right medications. Her friends and WINDOWS SECURITY ENGINEER are making sure that she is on a low carbohydrate diet and she is taking her medications as directed. She follows regularly with opthalm. Foot care discussed, she follows with teller manager on a regular basis. Hypertension/hype rlipidemia. Blood pressure well controlled and lipid panel is within reasonable limits. Continue current meds Anxiety/depressio n. Referred patient the different psychiatrist. Per previous psychiatrists record, patient was to be on Prozac, buspirone and mirtazapine. There is question of prozac vs lexapro. WINDOWS SECURITY ENGINEER will update us on the medication list. Advised on avoiding taking both meds as it can lead to Serotonin syndrome. Hypothyroidism. She is currently on levothyroxine 25 MCG. Check TSH/T4 Progressive dementia. She is currently on Movement seen and donepezil. She is currently in an assisted living and family will be considering WINDOWS SECURITY ENGINEER to help with ADLS and IADLs as patient is forgetful. They are also considering mcc Chronic kidney disease stage IIIb. She does not appear to be volume overload.She follows with Dr. Duarte. Avoid NSAIDs. She is on ARB. I have rendered the services for this patient under direct supervision of Dr. Parra, who did not see the patient but was available upon request 03/31/2025 Diabetes mellitus due to underlying condition with diabetic neuropathy, unspecified (ICD-10 - E08.40) Peyton is 79 years old lady with DM type II, hypertension, hyperlipidemia, obesity, anxiety/depressio n, progressive dementia is here today for Recent [facility] admission after patient was sent from the assisted living for AMS. Patient was in metabolic encephalopathy secondary to UTI and she also did have a hypoglycemic event prompting a change in the diabetic regimen. Plan is as follows DM type II. Her A1c Was checked on the hospital it was 6.0. She is a monotherapy of Januvia 50 mg which was decreased to 100 however if needed and GFR is about 45 then we can increase it to 100 mg per recommendation. Glimepiride And GLP were discontinued. Her friends and WINDOWS SECURITY ENGINEER are making sure that she is on a low carbohydrate diet and she is taking her medications as directed. She follows regularly with opthalm. Foot care discussed, she follows with teller manager on a regular basis. We will check A1c in 6 months Hypertension/hype rlipidemia. Blood pressure well controlled and lipid panel is within reasonable limits. Continue current meds Anxiety/depressio n. Referred patient the different psychiatrist. Per previous psychiatrists record, patient was to be on Prozac, buspirone and mirtazapine. There is question of prozac vs lexapro. WINDOWS SECURITY ENGINEER will update us on the medication list. Advised on avoiding taking both meds as it can lead to Serotonin syndrome. Hypothyroidism. She is currently on levothyroxine 25 MCG. Check TSH/T4 Progressive dementia. She is currently on donepezil. She is currently in an assisted living and family will be considering WINDOWS SECURITY ENGINEER to help with ADLS and IADLs as patient is forgetful. Chronic kidney disease stage IIIb. She does not appear to be volume overload.She follows with Dr. Duarte. Avoid NSAIDs. Check BMP Recent hospital discharge discussed with the patient Medication list updated I have rendered the services for this patient under direct supervision of Dr. Parra, who did not see the patient but was available upon request 02/10/2025 Type 2 diabetes mellitus with diabetic chronic kidney disease (ICD-10 - E11.22) Peyton is 79 years old lady with DM type II, hypertension, hyperlipidemia, obesity, anxiety/depressio n, progressive dementia is here today for follow-up. Plan is as follows DM type II. Her A1c has improved and it is 6.9. She is on the right medications. Her friends and WINDOWS SECURITY ENGINEER are making sure that she is on a low carbohydrate diet and she is taking her medications as directed. She follows regularly with opthalm. Foot care discussed, she follows with teller manager on a regular basis. Hypertension/hype rlipidemia. Blood pressure well controlled and lipid panel is within reasonable limits. Continue current meds Anxiety/depressio n. Referred patient the different psychiatrist. Per previous psychiatrists record, patient was to be on Prozac, buspirone and mirtazapine. There is question of prozac vs lexapro. WINDOWS SECURITY ENGINEER will update us on the medication list. Advised on avoiding taking both meds as it can lead to Serotonin syndrome. Hypothyroidism. She is currently on levothyroxine 25 MCG. Check TSH/T4 Progressive dementia. She is currently on Movement seen and donepezil. She is currently in an assisted living and family will be considering WINDOWS SECURITY ENGINEER to help with ADLS and IADLs as patient is forgetful. They are also considering mcc Chronic kidney disease stage IIIb. She does not appear to be volume overload.She follows with Dr. Duarte. Avoid NSAIDs. She is on ARB. I have rendered the services for this patient under direct supervision of Dr. Parra, who did not see the patient but was available upon request 03/31/2025 Hospital discharge follow-up (ICD-10 - Z09) Peytno is 79 years old lady with DM type II, hypertension, hyperlipidemia, obesity, anxiety/depressio n, progressive dementia is here today for Recent [facility] admission after patient was sent from the assisted living for AMS. Patient was in metabolic encephalopathy secondary to UTI and she also did have a hypoglycemic event prompting a change in the diabetic regimen. Plan is as follows DM type II. Her A1c Was checked on the hospital it was 6.0. She is a monotherapy of Januvia 50 mg which was decreased to 100 however if needed and GFR is about 45 then we can increase it to 100 mg per recommendation. Glimepiride And GLP were discontinued. Her friends and WINDOWS SECURITY ENGINEER are making sure that she is on a low carbohydrate diet and she is taking her medications as directed. She follows regularly with opthalm. Foot care discussed, she follows with teller manager on a regular basis. We will check A1c in 6 months Hypertension/hype rlipidemia. Blood pressure well controlled and lipid panel is within reasonable limits. Continue current meds Anxiety/depressio n. Referred patient the different psychiatrist. Per previous psychiatrists record, patient was to be on Prozac, buspirone and mirtazapine. There is question of prozac vs lexapro. WINDOWS SECURITY ENGINEER will update us on the medication list. Advised on avoiding taking both meds as it can lead to Serotonin syndrome. Hypothyroidism. She is currently on levothyroxine 25 MCG. Check TSH/T4 Progressive dementia. She is currently on donepezil. She is currently in an assisted living and family will be considering WINDOWS SECURITY ENGINEER to help with ADLS and IADLs as patient is forgetful. Chronic kidney disease stage IIIb. She does not appear to be volume overload.She follows with Dr. Duarte. Avoid NSAIDs. Check BMP Recent hospital discharge discussed with the patient Medication list updated I have rendered the services for this patient under direct supervision of Dr. Parra, who did not see the patient but was available upon request 03/25/2025 Unsteadiness on feet (ICD-10 - R26.81) 02/10/2025 Chronic kidney disease, stage 3a (ICD-10 - N18.31) Peyton is 79 years old lady with DM type II, hypertension, hyperlipidemia, obesity, anxiety/depressio n, progressive dementia is here today for follow-up. Plan is as follows DM type II. Her A1c has improved and it is 6.9. She is on the right medications. Her friends and WINDOWS SECURITY ENGINEER are making sure that she is on a low carbohydrate diet and she is taking her medications as directed. She follows regularly with opthalm. Foot care discussed, she follows with teller manager on a regular basis. Hypertension/hype rlipidemia. Blood pressure well controlled and lipid panel is within reasonable limits. Continue current meds Anxiety/depressio n. Referred patient the different psychiatrist. Per previous psychiatrists record, patient was to be on Prozac, buspirone and mirtazapine. There is question of prozac vs lexapro. WINDOWS SECURITY ENGINEER will update us on the medication list. Advised on avoiding taking both meds as it can lead to Serotonin syndrome. Hypothyroidism. She is currently on levothyroxine 25 MCG. Check TSH/T4 Progressive dementia. She is currently on Movement seen and donepezil. She is currently in an assisted living and family will be considering WINDOWS SECURITY ENGINEER to help with ADLS and IADLs as patient is forgetful. They are also considering mcc Chronic kidney disease stage IIIb. She does not appear to be volume overload.She follows with Dr. Duarte. Avoid NSAIDs. She is on ARB. I have rendered the services for this patient under direct supervision of Dr. Parra, who did not see the patient but was available upon request 03/31/2025 Type 2 diabetes mellitus with diabetic chronic kidney disease (ICD-10 - E11.22) Peyton is 79 years old lady with DM type II, hypertension, hyperlipidemia, obesity, anxiety/depressio n, progressive dementia is here today for Recent [facility] admission after patient was sent from the assisted living for AMS. Patient was in metabolic encephalopathy secondary to UTI and she also did have a hypoglycemic event prompting a change in the diabetic regimen. Plan is as follows DM type II. Her A1c Was checked on the hospital it was 6.0. She is a monotherapy of Januvia 50 mg which was decreased to 100 however if needed and GFR is about 45 then we can increase it to 100 mg per recommendation. Glimepiride And GLP were discontinued. Her friends and WINDOWS SECURITY ENGINEER are making sure that she is on a low carbohydrate diet and she is taking her medications as directed. She follows regularly with opthalm. Foot care discussed, she follows with teller manager on a regular basis. We will check A1c in 6 months Hypertension/hype rlipidemia. Blood pressure well controlled and lipid panel is within reasonable limits. Continue current meds Anxiety/depressio n. Referred patient the different psychiatrist. Per previous psychiatrists record, patient was to be on Prozac, buspirone and mirtazapine. There is question of prozac vs lexapro. WINDOWS SECURITY ENGINEER will update us on the medication list. Advised on avoiding taking both meds as it can lead to Serotonin syndrome. Hypothyroidism. She is currently on levothyroxine 25 MCG. Check TSH/T4 Progressive dementia. She is currently on donepezil. She is currently in an assisted living and family will be considering WINDOWS SECURITY ENGINEER to help with ADLS and IADLs as patient is forgetful. Chronic kidney disease stage IIIb. She does not appear to be volume overload.She follows with Dr. Duarte. Avoid NSAIDs. Check BMP Recent hospital discharge discussed with the patient Medication list updated I have rendered the services for this patient under direct supervision of Dr. Parra, who did not see the patient but was available upon request 11/11/2024 Hypothyroidism, unspecified (ICD-10 - E03.9) Peyton is 79 years old lady with DM type II, hypertension, hyperlipidemia, obesity, anxiety/depressio n, progressive dementia and recently she lost her and she is still in a bereavement phase. She is accompanied by her friend today. Plan is as follows DM type II. Her A1c has improved and it is 7.1. Her friends and WINDOWS SECURITY ENGINEER are making sure that she is on a low carbohydrate diet and she is taking her medications as directed. Hypertension/hype rlipidemia. Blood pressure well controlled and lipid panel is within reasonable limits. Continue current meds Anxiety/depressio n. She was recently seen by Dr. Chavez and she is on Prozac, buspirone and mirtazapine. There is question of prozac vs lexapro. WINDOWS SECURITY ENGINEER will update us on the medication list. [...] we will recommend that she should have pvwoy-bze-xjhby supervision/help at this point she has WINDOWS SECURITY ENGINEER who comes in for limited hours and rest of the time her friends to care of her. Chronic kidney disease stage IIIb. She does not appear to be volume overload. She is given referral to see banquet set up person. Avoid NSAIDs. She is on ARB. Anemia. Most likely secondary to chronic kidney disease and she can have iron supplements. I have rendered the services for this patient under direct supervision of Dr. Parra, who did not see the patient but was available upon request 08/12/2024 Hypothyroidism, unspecified (ICD-10 - E03.9) Peyton is 78 years old lady with DM type II, hypertension, hyperlipidemia, obesity, anxiety/depressio n, progressive dementia and recently she lost her and she is still in a bereavement phase. She is accompanied by her friend today. Plan is as follows DM type II. Her A1c has improved and it is 7.3. Her friends and WINDOWS SECURITY ENGINEER are making sure that she is on a low carbohydrate diet and she is taking her medications as directed. Hypertension/hype rlipidemia. Blood pressure well controlled and lipid panel is within reasonable limits. Continue current meds Anxiety/depressio n. She was recently seen by Dr. Chavez [...] we will recommend that she should have naytb-ijs-rjege supervision/help at this point she has WINDOWS SECURITY ENGINEER who comes in for limited hours and rest of the time her friends to care of her. Chronic kidney disease stage IIIb. She does not appear to be volume overload. She is given referral to see banquet set up person. Avoid NSAIDs. She is on ARB. Anemia. Most likely secondary to chronic kidney disease and she can have iron supplements. 07/15/2024 Hypothyroidism, unspecified (ICD-10 - E03.9) Peyton is 78 years old lady with DM type II, hypertension, hyperlipidemia, obesity, anxiety/depressio n, progressive dementia and recently she lost her and she is still in a bereavement phase. She is accompanied by her friend today. Plan is as follows DM type II. Her A1c has improved and it is 7.3. Her friends and WINDOWS SECURITY ENGINEER are making sure that she is on a low carbohydrate diet and she is taking her medications as directed. Hypertension/hype rlipidemia. Blood pressure well controlled and lipid panel is within reasonable limits. Continue current meds Anxiety/depressio n. We will increase Lexapro to 20 mg [...] we will recommend that she should have ustah-hwe-rtffo supervision/help at this point she has WINDOWS SECURITY ENGINEER who comes in for limited hours and rest of the time her friends to care of her. Chronic kidney disease stage IIIb. She does not appear to be volume overload. She is given referral to see banquet set up person. Avoid NSAIDs. She is on ARB. Anemia. Most likely secondary to chronic kidney disease and she can have iron supplements. 07/15/2024 Complaints of memory disturbance (ICD-10 - R41.3) Peyton is 78 years old lady with DM type II, hypertension, hyperlipidemia, obesity, anxiety/depressio n, progressive dementia and recently she lost her and she is still in a bereavement phase. She is accompanied by her friend today. Plan is as follows DM type II. Her A1c has improved and it is 7.3. Her friends and WINDOWS SECURITY ENGINEER are making sure that she is on a low carbohydrate diet and she is taking her medications as directed. Hypertension/hype rlipidemia. Blood pressure well controlled and lipid panel is within reasonable limits. Continue current meds Anxiety/depressio n. We will increase Lexapro to 20 mg [...] we will recommend that she should have poozl-vsi-icusy supervision/help at this point she has WINDOWS SECURITY ENGINEER who comes in for limited hours and rest of the time her friends to care of her. Chronic kidney disease stage IIIb. She does not appear to be volume overload. She is given referral to see banquet set up person. Avoid NSAIDs. She is on ARB. Anemia. Most likely secondary to chronic kidney disease and she can have iron supplements. 08/12/2024 Complaints of memory disturbance (ICD-10 - R41.3) Peyton is 78 years old lady with DM type II, hypertension, hyperlipidemia, obesity, anxiety/depressio n, progressive dementia and recently she lost her and she is still in a bereavement phase. She is accompanied by her friend today. Plan is as follows DM type II. Her A1c has improved and it is 7.3. Her friends and WINDOWS SECURITY ENGINEER are making sure that she is on a low carbohydrate diet and she is taking her medications as directed. Hypertension/hype rlipidemia. Blood pressure well controlled and lipid panel is within reasonable limits. Continue current meds Anxiety/depressio n. She was recently seen by Dr. Chavez [...] we will recommend that she should have hnbuf-krj-gfrsp supervision/help at this point she has WINDOWS SECURITY ENGINEER who comes in for limited hours and rest of the time her friends to care of her. Chronic kidney disease stage IIIb. She does not appear to be volume overload. She is given referral to see banquet set up person. Avoid NSAIDs. She is on ARB. Anemia. Most likely secondary to chronic kidney disease and she can have iron supplements. 11/11/2024 Complaints of memory disturbance (ICD-10 - R41.3) Peyton is 79 years old lady with DM type II, hypertension, hyperlipidemia, obesity, anxiety/depressio n, progressive dementia and recently she lost her and she is still in a bereavement phase. She is accompanied by her friend today. Plan is as follows DM type II. Her A1c has improved and it is 7.1. Her friends and WINDOWS SECURITY ENGINEER are making sure that she is on a low carbohydrate diet and she is taking her medications as directed. Hypertension/hype rlipidemia. Blood pressure well controlled and lipid panel is within reasonable limits. Continue current meds Anxiety/depressio n. She was recently seen by Dr. Chavez and she is on Prozac, buspirone and mirtazapine. There is question of prozac vs lexapro. WINDOWS SECURITY ENGINEER will update us on the medication list. [...] we will recommend that she should have imzxz-rmw-yydoa supervision/help at this point she has WINDOWS SECURITY ENGINEER who comes in for limited hours and rest of the time her friends to care of her. Chronic kidney disease stage IIIb. She does not appear to be volume overload. She is given referral to see banquet set up person. Avoid NSAIDs. She is on ARB. Anemia. Most likely secondary to chronic kidney disease and she can have iron supplements. I have rendered the services for this patient under direct supervision of Dr. Parra, who did not see the patient but was available upon request 02/10/2025 Essential (primary) hypertension (ICD-10 - I10) Peyton is 79 years old lady with DM type II, hypertension, hyperlipidemia, obesity, anxiety/depressio n, progressive dementia is here today for follow-up. Plan is as follows DM type II. Her A1c has improved and it is 6.9. She is on the right medications. Her friends and WINDOWS SECURITY ENGINEER are making sure that she is on a low carbohydrate diet and she is taking her medications as directed. She follows regularly with opthalm. Foot care discussed, she follows with teller manager on a regular basis. Hypertension/hype rlipidemia. Blood pressure well controlled and lipid panel is within reasonable limits. Continue current meds Anxiety/depressio n. Referred patient the different psychiatrist. Per previous psychiatrists record, patient was to be on Prozac, buspirone and mirtazapine. There is question of prozac vs lexapro. WINDOWS SECURITY ENGINEER will update us on the medication list. Advised on avoiding taking both meds as it can lead to Serotonin syndrome. Hypothyroidism. She is currently on levothyroxine 25 MCG. Check TSH/T4 Progressive dementia. She is currently on Movement seen and donepezil. She is currently in an assisted living and family will be considering WINDOWS SECURITY ENGINEER to help with ADLS and IADLs as patient is forgetful. They are also considering mcc Chronic kidney disease stage IIIb. She does not appear to be volume overload.She follows with Dr. Duarte. Avoid NSAIDs. She is on ARB. I have rendered the services for this patient under direct supervision of Dr. Parra, who did not see the patient but was available upon request 03/31/2025 Chronic kidney disease, stage 3a (ICD-10 - N18.31) Peyton is 79 years old lady with DM type II, hypertension, hyperlipidemia, obesity, anxiety/depressio n, progressive dementia is here today for Recent [facility] admission after patient was sent from the assisted living for AMS. Patient was in metabolic encephalopathy secondary to UTI and she also did have a hypoglycemic event prompting a change in the diabetic regimen. Plan is as follows DM type II. Her A1c Was checked on the hospital it was 6.0. She is a monotherapy of Januvia 50 mg which was decreased to 100 however if needed and GFR is about 45 then we can increase it to 100 mg per recommendation. Glimepiride And GLP were discontinued. Her friends and WINDOWS SECURITY ENGINEER are making sure that she is on a low carbohydrate diet and she is taking her medications as directed. She follows regularly with opthalm. Foot care discussed, she follows with teller manager on a regular basis. We will check A1c in 6 months Hypertension/hype rlipidemia. Blood pressure well controlled and lipid panel is within reasonable limits. Continue current meds Anxiety/depressio n. Referred patient the different psychiatrist. Per previous psychiatrists record, patient was to be on Prozac, buspirone and mirtazapine. There is question of prozac vs lexapro. WINDOWS SECURITY ENGINEER will update us on the medication list. Advised on avoiding taking both meds as it can lead to Serotonin syndrome. Hypothyroidism. She is currently on levothyroxine 25 MCG. Check TSH/T4 Progressive dementia. She is currently on donepezil. She is currently in an assisted living and family will be considering WINDOWS SECURITY ENGINEER to help with ADLS and IADLs as patient is forgetful. Chronic kidney disease stage IIIb. She does not appear to be volume overload.She follows with Dr. Duarte. Avoid NSAIDs. Check BMP Recent hospital discharge discussed with the patient Medication list updated I have rendered the services for this patient under direct supervision of Dr. Parra, who did not see the patient but was available upon request 03/31/2025 Essential (primary) hypertension (ICD-10 - I10) Peyton is 79 years old lady with DM type II, hypertension, hyperlipidemia, obesity, anxiety/depressio n, progressive dementia is here today for Recent [facility] admission after patient was sent from the assisted living for AMS. Patient was in metabolic encephalopathy secondary to UTI and she also did have a hypoglycemic event prompting a change in the diabetic regimen. Plan is as follows DM type II. Her A1c Was checked on the hospital it was 6.0. She is a monotherapy of Januvia 50 mg which was decreased to 100 however if needed and GFR is about 45 then we can increase it to 100 mg per recommendation. Glimepiride And GLP were discontinued. Her friends and WINDOWS SECURITY ENGINEER are making sure that she is on a low carbohydrate diet and she is taking her medications as directed. She follows regularly with opthalm. Foot care discussed, she follows with teller manager on a regular basis. We will check A1c in 6 months Hypertension/hype rlipidemia. Blood pressure well controlled and lipid panel is within reasonable limits. Continue current meds Anxiety/depressio n. Referred patient the different psychiatrist. Per previous psychiatrists record, patient was to be on Prozac, buspirone and mirtazapine. There is question of prozac vs lexapro. WINDOWS SECURITY ENGINEER will update us on the medication list. Advised on avoiding taking both meds as it can lead to Serotonin syndrome. Hypothyroidism. She is currently on levothyroxine 25 MCG. Check TSH/T4 Progressive dementia. She is currently on donepezil. She is currently in an assisted living and family will be considering WINDOWS SECURITY ENGINEER to help with ADLS and IADLs as patient is forgetful. Chronic kidney disease stage IIIb. She does not appear to be volume overload.She follows with Dr. Duarte. Avoid NSAIDs. Check BMP Recent hospital discharge discussed with the patient Medication list updated I have rendered the services for this patient under direct supervision of Dr. Parra, who did not see the patient but was available upon request 02/10/2025 Hypothyroidism, unspecified (ICD-10 - E03.9) Peyton is 79 years old lady with DM type II, hypertension, hyperlipidemia, obesity, anxiety/depressio n, progressive dementia is here today for follow-up. Plan is as follows DM type II. Her A1c has improved and it is 6.9. She is on the right medications. Her friends and WINDOWS SECURITY ENGINEER are making sure that she is on a low carbohydrate diet and she is taking her medications as directed. She follows regularly with opthalm. Foot care discussed, she follows with teller manager on a regular basis. Hypertension/hype rlipidemia. Blood pressure well controlled and lipid panel is within reasonable limits. Continue current meds Anxiety/depressio n. Referred patient the different psychiatrist. Per previous psychiatrists record, patient was to be on Prozac, buspirone and mirtazapine. There is question of prozac vs lexapro. WINDOWS SECURITY ENGINEER will update us on the medication list. Advised on avoiding taking both meds as it can lead to Serotonin syndrome. Hypothyroidism. She is currently on levothyroxine 25 MCG. Check TSH/T4 Progressive dementia. She is currently on Movement seen and donepezil. She is currently in an assisted living and family will be considering WINDOWS SECURITY ENGINEER to help with ADLS and IADLs as patient is forgetful. They are also considering [facility] Chronic kidney disease stage IIIb. She does not appear to be volume overload.She follows with Dr. Duarte. Avoid NSAIDs. She is on ARB. I have rendered the services for this patient under direct supervision of Dr. Parra, who did not see the patient but was available upon request 11/11/2024 Generalized anxiety disorder (ICD-10 - F41.1) Peyton is 79 years old lady with DM type II, hypertension, hyperlipidemia, obesity, anxiety/depressio n, progressive dementia and recently she lost her and she is still in a bereavement phase. She is accompanied by her friend today. Plan is as follows DM type II. Her A1c has improved and it is 7.1. Her friends and WINDOWS SECURITY ENGINEER are making sure that she is on a low carbohydrate diet and she is taking her medications as directed. Hypertension/hype rlipidemia. Blood pressure well controlled and lipid panel is within reasonable limits. Continue current meds Anxiety/depressio n. She was recently seen by Dr. Chavez and she is on Prozac, buspirone and mirtazapine. There is question of prozac vs lexapro. WINDOWS SECURITY ENGINEER will update us on the medication list. [...] we will recommend that she should have razuc-rsg-iyorj supervision/help at this point she has WINDOWS SECURITY ENGINEER who comes in for limited hours and rest of the time her friends to care of her. Chronic kidney disease stage IIIb. She does not appear to be volume overload. She is given referral to see banquet set up person. Avoid NSAIDs. She is on ARB. Anemia. Most likely secondary to chronic kidney disease and she can have iron supplements. I have rendered the services for this patient under direct supervision of Dr. Parra, who did not see the patient but was available upon request 08/12/2024 Generalized anxiety disorder (ICD-10 - F41.1) Peyton is 78 years old lady with DM type II, hypertension, hyperlipidemia, obesity, anxiety/depressio n, progressive dementia and recently she lost her and she is still in a bereavement phase. She is accompanied by her friend today. Plan is as follows DM type II. Her A1c has improved and it is 7.3. Her friends and WINDOWS SECURITY ENGINEER are making sure that she is on a low carbohydrate diet and she is taking her medications as directed. Hypertension/hype rlipidemia. Blood pressure well controlled and lipid panel is within reasonable limits. Continue current meds Anxiety/depressio n. She was recently seen by Dr. Chavez [...] we will recommend that she should have szgid-zgx-kmusc supervision/help at this point she has WINDOWS SECURITY ENGINEER who comes in for limited hours and rest of the time her friends to care of her. Chronic kidney disease stage IIIb. She does not appear to be volume overload. She is given referral to see banquet set up person. Avoid NSAIDs. She is on ARB. Anemia. Most likely secondary to chronic kidney disease and she can have iron supplements. 07/15/2024 Generalized anxiety disorder (ICD-10 - F41.1) Peyton is 78 years old lady with DM type II, hypertension, hyperlipidemia, obesity, anxiety/depressio n, progressive dementia and recently she lost her and she is still in a bereavement phase. She is accompanied by her friend today. Plan is as follows DM type II. Her A1c has improved and it is 7.3. Her friends and WINDOWS SECURITY ENGINEER are making sure that she is on a low carbohydrate diet and she is taking her medications as directed. Hypertension/hype rlipidemia. Blood pressure well controlled and lipid panel is within reasonable limits. Continue current meds Anxiety/depressio n. We will increase Lexapro to 20 mg [...] we will recommend that she should have tuubs-aui-xddog supervision/help at this point she has WINDOWS SECURITY ENGINEER who comes in for limited hours and rest of the time her friends to care of her. Chronic kidney disease stage IIIb. She does not appear to be volume overload. She is given referral to see banquet set up person. Avoid NSAIDs. She is on ARB. Anemia. Most likely secondary to chronic kidney disease and she can have iron supplements. 07/15/2024 Major depressive disorder, recurrent, moderate (ICD-10 - F33.1) Peyton is 78 years old lady with DM type II, hypertension, hyperlipidemia, obesity, anxiety/depressio n, progressive dementia and recently she lost her and she is still in a bereavement phase. She is accompanied by her friend today. Plan is as follows DM type II. Her A1c has improved and it is 7.3. Her friends and WINDOWS SECUR[employer] ENGINEER are making sure that she is on a low carbohydrate diet and she is taking her medications as directed. Hypertension/hype rlipidemia. Blood pressure well controlled and lipid panel is within reasonable limits. Continue current meds Anxiety/depressio n. We will increase Lexapro to 20 mg [...] we will recommend that she should have csxvz-kpb-unwax supervision/help at this point she has WINDOWS SECURITY ENGINEER who comes in for limited hours and rest of the time her friends to care of her. Chronic kidney disease stage IIIb. She does not appear to be volume overload. She is given referral to see banquet set up person. Avoid NSAIDs. She is on ARB. Anemia. Most likely secondary to chronic kidney disease and she can have iron supplements. 08/12/2024 Major depressive disorder, recurrent, moderate (ICD-10 - F33.1) Peyton is 78 years old lady with DM type II, hypertension, hyperlipidemia, obesity, anxiety/depressio n, progressive dementia and recently she lost her and she is still in a bereavement phase. She is accompanied by her friend today. Plan is as follows DM type II. Her A1c has improved and it is 7.3. Her friends and WINDOWS SECUR[employer] ENGINEER are making sure that she is on a low carbohydrate diet and she is taking her medications as directed. Hypertension/hype rlipidemia. Blood pressure well controlled and lipid panel is within reasonable limits. Continue current meds Anxiety/depressio n. She was recently seen by Dr. Chavez [...] we will recommend that she should have movcb-jql-lbhqb supervision/help at this point she has WINDOWS SECURITY ENGINEER who comes in for limited hours and rest of the time her friends to care of her. Chronic kidney disease stage IIIb. She does not appear to be volume overload. She is given referral to see banquet set up person. Avoid NSAIDs. She is on ARB. Anemia. Most likely secondary to chronic kidney disease and she can have iron supplements. 11/11/2024 Major depressive disorder, recurrent, moderate (ICD-10 - F33.1) Peyton is 79 years old lady with DM type II, hypertension, hyperlipidemia, obesity, anxiety/depressio n, progressive dementia and recently she lost her and she is still in a bereavement phase. She is accompanied by her friend today. Plan is as follows DM type II. Her A1c has improved and it is 7.1. Her friends and WIND[employer] SECUR[employer] ENGINEER are making sure that she is on a low carbohydrate diet and she is taking her medications as directed. Hypertension/hype rlipidemia. Blood pressure well controlled and lipid panel is within reasonable limits. Continue current meds Anxiety/depressio n. She was recently seen by Dr. Chavez and she is on Prozac, buspirone and mirtazapine. There is question of prozac vs lexapro. WINDOWS SECURITY ENGINEER will update us on the medication list. [...] we will recommend that she should have rkhyd-tfi-jcvui supervision/help at this point she has WINDOWS SECURITY ENGINEER who comes in for limited hours and rest of the time her friends to care of her. Chronic kidney disease stage IIIb. She does not appear to be volume overload. She is given referral to see banquet set up person. Avoid NSAIDs. She is on ARB. Anemia. Most likely secondary to chronic kidney disease and she can have iron supplements. I have rendered the services for this patient under direct supervision of Dr. Parra, who did not see the patient but was available upon request 02/10/2025 Complaints of memory disturbance (ICD-10 - R41.3) Peyton is 79 years old lady with DM type II, hypertension, hyperlipidemia, obesity, anxiety/depressio n, progressive dementia is here today for follow-up. Plan is as follows DM type II. Her A1c has improved and it is 6.9. She is on the right medications. Her friends and WINDOWS SECURITY ENGINEER are making sure that she is on a low carbohydrate diet and she is taking her medications as directed. She follows regularly with opthalm. Foot care discussed, she follows with teller manager on a regular basis. Hypertension/hype rlipidemia. Blood pressure well controlled and lipid panel is within reasonable limits. Continue current meds Anxiety/depressio n. Referred patient the different psychiatrist. Per previous psychiatrists record, patient was to be on Prozac, buspirone and mirtazapine. There is question of prozac vs lexapro. WINDOWS SECURITY ENGINEER will update us on the medication list. Advised on avoiding taking both meds as it can lead to Serotonin syndrome. Hypothyroidism. She is currently on levothyroxine 25 MCG. Check TSH/T4 Progressive dementia. She is currently on Movement seen and donepezil. She is currently in an assisted living and family will be considering WINDOWS SECURITY ENGINEER to help with ADLS and IADLs as patient is forgetful. They are also considering [facility] Chronic kidney disease stage IIIb. She does not appear to be volume overload.She follows with Dr. Duarte. Avoid NSAIDs. She is on ARB. I have rendered the services for this patient under direct supervision of Dr. Parra, who did not see the patient but was available upon request 03/31/2025 Hypothyroidism, unspecified (ICD-10 - E03.9) Peyton is 79 years old lady with DM type II, hypertension, hyperlipidemia, obesity, anxiety/depressio n, progressive dementia is here today for Recent [facility] admission after patient was sent from the assisted living for AMS. Patient was in metabolic encephalopathy secondary to UTI and she also did have a hypoglycemic event prompting a change in the diabetic regimen. Plan is as follows DM type II. Her A1c Was checked on the hospital it was 6.0. She is a monotherapy of Januvia 50 mg which was decreased to 100 however if needed and GFR is about 45 then we can increase it to 100 mg per recommendation. Glimepiride And GLP were discontinued. Her friends and WINDOWS SECURITY ENGINEER are making sure that she is on a low carbohydrate diet and she is taking her medications as directed. She follows regularly with opthalm. Foot care discussed, she follows with teller manager on a regular basis. We will check A1c in 6 months Hypertension/hype rlipidemia. Blood pressure well controlled and lipid panel is within reasonable limits. Continue current meds Anxiety/depressio n. Referred patient the different psychiatrist. Per previous psychiatrists record, patient was to be on Prozac, buspirone and mirtazapine. There is question of prozac vs lexapro. WINDOWS SECURITY ENGINEER will update us on the medication list. Advised on avoiding taking both meds as it can lead to Serotonin syndrome. Hypothyroidism. She is currently on levothyroxine 25 MCG. Check TSH/T4 Progressive dementia. She is currently on donepezil. She is currently in an assisted living and family will be considering WINDOWS SECURITY ENGINEER to help with ADLS and IADLs as patient is forgetful. Chronic kidney disease stage IIIb. She does not appear to be volume overload.She follows with Dr. Duarte. Avoid NSAIDs. Check BMP Recent hospital discharge discussed with the patient Medication list updated I have rendered the services for this patient under direct supervision of Dr. Parra, who did not see the patient but was available upon request 03/31/2025 Complaints of memory disturbance (ICD-10 - R41.3) Peyton is 79 years old lady with DM type II, hypertension, hyperlipidemia, obesity, anxiety/depressio n, progressive dementia is here today for Recent [facility] admission after patient was sent from the assisted living for AMS. Patient was in metabolic encephalopathy secondary to UTI and she also did have a hypoglycemic event prompting a change in the diabetic regimen. Plan is as follows DM type II. Her A1c Was checked on the hospital it was 6.0. She is a monotherapy of Januvia 50 mg which was decreased to 100 however if needed and GFR is about 45 then we can increase it to 100 mg per recommendation. Glimepiride And GLP were discontinued. Her friends and WINDOWS SECURITY ENGINEER are making sure that she is on a low carbohydrate diet and she is taking her medications as directed. She follows regularly with opthalm. Foot care discussed, she follows with teller manager on a regular basis. We will check A1c in 6 months Hypertension/hype rlipidemia. Blood pressure well controlled and lipid panel is within reasonable limits. Continue current meds Anxiety/depressio n. Referred patient the different psychiatrist. Per previous psychiatrists record, patient was to be on Prozac, buspirone and mirtazapine. There is question of prozac vs lexapro. WINDOWS SECURITY ENGINEER will update us on the medication list. Advised on avoiding taking both meds as it can lead to Serotonin syndrome. Hypothyroidism. She is currently on levothyroxine 25 MCG. Check TSH/T4 Progressive dementia. She is currently on donepezil. She is currently in an assisted living and family will be considering WINDOWS SECURITY ENGINEER to help with ADLS and IADLs as patient is forgetful. Chronic kidney disease stage IIIb. She does not appear to be volume overload.She follows with Dr. Duarte. Avoid NSAIDs. Check BMP Recent hospital discharge discussed with the patient Medication list updated I have rendered the services for this patient under direct supervision of Dr. Parra, who did not see the patient but was available upon request 02/10/2025 Generalized anxiety disorder (ICD-10 - F41.1) Peyton is 79 years old lady with DM type II, hypertension, hyperlipidemia, obesity, anxiety/depressio n, progressive dementia is here today for follow-up. Plan is as follows DM type II. Her A1c has improved and it is 6.9. She is on the right medications. Her friends and WINDOWS SECUR[employer] ENGINEER are making sure that she is on a low carbohydrate diet and she is taking her medications as directed. She follows regularly with opthalm. Foot care discussed, she follows with teller manager on a regular basis. Hypertension/hype rlipidemia. Blood pressure well controlled and lipid panel is within reasonable limits. Continue current meds Anxiety/depressio n. Referred patient the different psychiatrist. Per previous psychiatrists record, patient was to be on Prozac, buspirone and mirtazapine. There is question of prozac vs lexapro. WINDOWS SECURITY ENGINEER will update us on the medication list. Advised on avoiding taking both meds as it can lead to Serotonin syndrome. Hypothyroidism. She is currently on levothyroxine 25 MCG. Check TSH/T4 Progressive dementia. She is currently on Movement seen and donepezil. She is currently in an assisted living and family will be considering WINDOWS SECURITY ENGINEER to help with ADLS and IADLs as patient is forgetful. They are also considering mcc Chronic kidney disease stage IIIb. She does not appear to be volume overload.She follows with Dr. Duarte. Avoid NSAIDs. She is on ARB. I have rendered the services for this patient under direct supervision of Dr. Parra, who did not see the patient but was available upon request 11/11/2024 Anemia, unspecified (ICD-10 - D64.9) Peyton is 79 years old lady with DM type II, hypertension, hyperlipidemia, obesity, anxiety/depressio n, progressive dementia and recently she lost her and she is still in a bereavement phase. She is accompanied by her friend today. Plan is as follows DM type II. Her A1c has improved and it is 7.1. Her friends and WINDOWS SECUR[employer] ENGINEER are making sure that she is on a low carbohydrate diet and she is taking her medications as directed. Hypertension/hype rlipidemia. Blood pressure well controlled and lipid panel is within reasonable limits. Continue current meds Anxiety/depressio n. She was recently seen by Dr. Chavez and she is on Prozac, buspirone and mirtazapine. There is question of prozac vs lexapro. WINDOWS SECURITY ENGINEER will update us on the medication list. [...] we will recommend that she should have ryylu-kix-thyhj supervision/help at this point she has WINDOWS SECURITY ENGINEER who comes in for limited hours and rest of the time her friends to care of her. Chronic kidney disease stage IIIb. She does not appear to be volume overload. She is given referral to see banquet set up person. Avoid NSAIDs. She is on ARB. Anemia. Most likely secondary to chronic kidney disease and she can have iron supplements. I have rendered the services for this patient under direct supervision of Dr. Parra, who did not see the patient but was available upon request 08/12/2024 Anemia, unspecified (ICD-10 - D64.9) Peyton is 78 years old lady with DM type II, hypertension, hyperlipidemia, obesity, anxiety/depressio n, progressive dementia and recently she lost her and she is still in a bereavement phase. She is accompanied by her friend today. Plan is as follows DM type II. Her A1c has improved and it is 7.3. Her friends and WINDOWS SECUR[employer] ENGINEER are making sure that she is on a low carbohydrate diet and she is taking her medications as directed. Hypertension/hype rlipidemia. Blood pressure well controlled and lipid panel is within reasonable limits. Continue current meds Anxiety/depressio n. She was recently seen by Dr. Chavez [...] we will recommend that she should have nqgdz-jtb-gizjs supervision/help at this point she has WINDOWS SECURITY ENGINEER who comes in for limited hours and rest of the time her friends to care of her. Chronic kidney disease stage IIIb. She does not appear to be volume overload. She is given referral to see banquet set up person. Avoid NSAIDs. She is on ARB. Anemia. Most likely secondary to chronic kidney disease and she can have iron supplements. 07/15/2024 Anemia, unspecified (ICD-10 - D64.9) Peyton is 78 years old lady with DM type II, hypertension, hyperlipidemia, obesity, anxiety/depressio n, progressive dementia and recently she lost her and she is still in a bereavement phase. She is accompanied by her friend today. Plan is as follows DM type II. Her A1c has improved and it is 7.3. Her friends and WINDOWS SECURITY ENGINEER are making sure that she is on a low carbohydrate diet and she is taking her medications as directed. Hypertension/hype rlipidemia. Blood pressure well controlled and lipid panel is within reasonable limits. Continue current meds Anxiety/depressio n. We will increase Lexapro to 20 mg [...] we will recommend that she should have mrhtx-nff-jtejl supervision/help at this point she has WINDOWS SECURITY ENGINEER who comes in for limited hours and rest of the time her friends to care of her. Chronic kidney disease stage IIIb. She does not appear to be volume overload. She is given referral to see banquet set up person. Avoid NSAIDs. She is on ARB. Anemia. Most likely secondary to chronic kidney disease and she can have iron supplements. 02/10/2025 Major depressive disorder, recurrent, moderate (ICD-10 - F33.1) Peyton is 79 years old lady with DM type II, hypertension, hyperlipidemia, obesity, anxiety/depressio n, progressive dementia is here today for follow-up. Plan is as follows DM type II. Her A1c has improved and it is 6.9. She is on the right medications. Her friends and WINDOWS SECURITY ENGINEER are making sure that she is on a low carbohydrate diet and she is taking her medications as directed. She follows regularly with opthalm. Foot care discussed, she follows with teller manager on a regular basis. Hypertension/hype rlipidemia. Blood pressure well controlled and lipid panel is within reasonable limits. Continue current meds Anxiety/depressio n. Referred patient the different psychiatrist. Per previous psychiatrists record, patient was to be on Prozac, buspirone and mirtazapine. There is question of prozac vs lexapro. WINDOWS SECURITY ENGINEER will update us on the medication list. Advised on avoiding taking both meds as it can lead to Serotonin syndrome. Hypothyroidism. She is currently on levothyroxine 25 MCG. Check TSH/T4 Progressive dementia. She is currently on Movement seen and donepezil. She is currently in an assisted living and family will be considering WINDOWS SECURITY ENGINEER to help with ADLS and IADLs as patient is forgetful. They are also considering [facility]cc Chronic kidney disease stage IIIb. She does not appear to be volume overload.She follows with Dr. Duarte. Avoid NSAIDs. She is on ARB. I have rendered the services for this patient under direct supervision of Dr. Parra, who did not see the patient but was available upon request 03/31/2025 Generalized anxiety disorder (ICD-10 - F41.1) Peyton is 79 years old lady with DM type II, hypertension, hyperlipidemia, obesity, anxiety/depressio n, progressive dementia is here today for Recent [facility] admission after patient was sent from the assisted living for AMS. Patient was in metabolic encephalopathy secondary to UTI and she also did have a hypoglycemic event prompting a change in the diabetic regimen. Plan is as follows DM type II. Her A1c Was checked on the hospital it was 6.0. She is a monotherapy of Januvia 50 mg which was decreased to 100 however if needed and GFR is about 45 then we can increase it to 100 mg per recommendation. Glimepiride And GLP were discontinued. Her friends and WINDOWS SECURITY ENGINEER are making sure that she is on a low carbohydrate diet and she is taking her medications as directed. She follows regularly with opthalm. Foot care discussed, she follows with teller manager on a regular basis. We will check A1c in 6 months Hypertension/hype rlipidemia. Blood pressure well controlled and lipid panel is within reasonable limits. Continue current meds Anxiety/depressio n. Referred patient the different psychiatrist. Per previous psychiatrists record, patient was to be on Prozac, buspirone and mirtazapine. There is question of prozac vs lexapro. WINDOWS SECURITY ENGINEER will update us on the medication list. Advised on avoiding taking both meds as it can lead to Serotonin syndrome. Hypothyroidism. She is currently on levothyroxine 25 MCG. Check TSH/T4 Progressive dementia. She is currently on donepezil. She is currently in an assisted living and family will be considering WINDOWS SECURITY ENGINEER to help with ADLS and IADLs as patient is forgetful. Chronic kidney disease stage IIIb. She does not appear to be volume overload.She follows with Dr. Duarte. Avoid NSAIDs. Check BMP Recent hospital discharge discussed with the patient Medication list updated I have rendered the services for this patient under direct supervision of Dr. Parra, who did not see the patient but was available upon request 03/31/2025 Major depressive disorder, recurrent, moderate (ICD-10 - F33.1) Peyton is 79 years old lady with DM type II, hypertension, hyperlipidemia, obesity, anxiety/depressio n, progressive dementia is here today for Recent [facility] admission after patient was sent from the assisted living for AMS. Patient was in metabolic encephalopathy secondary to UTI and she also did have a hypoglycemic event prompting a change in the diabetic regimen. Plan is as follows DM type II. Her A1c Was checked on the hospital it was 6.0. She is a monotherapy of Januvia 50 mg which was decreased to 100 however if needed and GFR is about 45 then we can increase it to 100 mg per recommendation. Glimepiride And GLP were discontinued. Her friends and WINDOWS SECURITY ENGINEER are making sure that she is on a low carbohydrate diet and she is taking her medications as directed. She follows regularly with opthalm. Foot care discussed, she follows with teller manager on a regular basis. We will check A1c in 6 months Hypertension/hype rlipidemia. Blood pressure well controlled and lipid panel is within reasonable limits. Continue current meds Anxiety/depressio n. Referred patient the different psychiatrist. Per previous psychiatrists record, patient was to be on Prozac, buspirone and mirtazapine. There is question of prozac vs lexapro. WINDOWS SECURITY ENGINEER will update us on the medication list. Advised on avoiding taking both meds as it can lead to Serotonin syndrome. Hypothyroidism. She is currently on levothyroxine 25 MCG. Check TSH/T4 Progressive dementia. She is currently on donepezil. She is currently in an assisted living and family will be considering WINDOWS SECURITY ENGINEER to help with ADLS and IADLs as patient is forgetful. Chronic kidney disease stage IIIb. She does not appear to be volume overload.She follows with Dr. Duarte. Avoid NSAIDs. Check BMP Recent hospital discharge discussed with the patient Medication list updated I have rendered the services for this patient under direct supervision of Dr. Parra, who did not see the patient but was available upon request Plan Of Treatment Pending Test Test Name Order Date Electrocardiogram (EKG) 09/30/2018 MAMMOGRAM, SCREENING 04/21/2024 MICROALBUMIN,URINE 09/30/2018 COMPREHENSIVE METABOLIC PANEL 04/16/2023 COMPREHENSIVE METABOLIC PANEL 08/28/2022 HEMOGLOBIN A1C 12/18/2021 HEMOGLOBIN A1C 04/16/2023 HEMOGLOBIN A1C WITH EST GLUCOSE 08/28/19 LIPID PANEL 08/28/2022 LIPID PANEL 04/16/2023 MICROALBUMIN, URINE 04/16/2023 TSH 04/16/2023 TSH WITH REFLEX TO FT4 08/28/2022 Xray: Chest-Standard Frontal & Lat 06/05 Lipid Panel-[id number] 02/28/2024 Comp. Metabolic Panel [id number] 2023 Hemoglobin A1c 02/28/2024 Future Test Test Name Order Date Hemoglobin [id number] 02/10/2025 TSH+Free [id number] 02/10/2025 Comp. Metabolic Panel [id number] 2024 Lipid Panel-[id number] 03/31/2025 Next Appt Details Provider Name:Phoebe Gaming[facility]man [facility], 08/12/2025 02:00:00 PM, [address] [place] [address] [address], [place], [address], Insurance Providers Payer Name Payer Address Payer Phone Subscriber Number Group Number Insured Name Patient Relationship to Insured Coverage Start Date Coverage End Date [employer] [address] [address] [place] [phone] [id number] Peyton Gilbert Self - patient is the insured Medical (General) History Medical History History ICD Code Cardiac murmur type 2 diabetes Status post breast cancer and sees oncreji jamil at [facility] Hypothyroidism hypertension, benign hyperlipidemia Vaginal growth colon polyp ERICK- See Dr Chavez Surgical History Surgery Date(Month/Year) partial hysterectomy 1969's lumpectomy, right breast 2016 Hospitalization History Reason Date(Month/Year) surgeries
--- OUTSIDE RECORDS SUMMARY | 2025-06-22 15:47 | XMS_ITS | Patient Health Record ---
[facility] Address [address] [place] [address] Care Team Providers Care [place]cherette Name Role Phone Cristóbalgladys Juvenal Primary Care Provider Elliot Craft Unavailable [phone] Allergies Allergen (clinical drug ingredient) Drug/Non Drug Allergy documented on EMR Reaction Allergy Type Onset Date Status morphine Morphine itchy Drug Allergy Active IVP dye Unknown Drug Allergy Active Reason For Referral No Information Medications Medication SIG (Take, Route, Fr equency, Duration) Notes Start Date End Date Status Multivitamins Acti ve Ibuprofen 200 MG 1 tablet as needed O rally every 6 hrs; Duration: 30 days 11/26/2011 Active Problems Problem Type SNOMED Code ICD Code Onset Dates Problem Status W/U Status Risk Notes Problem Ingrowing nail (738002603) Ingrowing Nail (703.0) Active confirmed Problem Metatarsalgia (10848317) Metatarsalgia (726.70) Active confirmed Problem Onychomycosis (232688422) Onychomycosis (110.1) Active confirmed Problem Pain in limb (60461819) Pain in Limb (729.5) Active confirmed Problem Tailors bunion (2942203) Tailors Bunion (727.1) Active confirmed Problem Verruca plantaris (30470565) Verruca Plantaris (078.19) Active confirmed Plan Of Treatment Pending Test Test Name Order Date X ray : Foot, left 3V 11/26/2011 [id number] NAIL, 1-5 02/14/2012 [id number] NAIL, 1-04/21/2012 [id number] NAIL, -07/14/2012 [id number] Destruction, -07/14/2012 [id number] Destruction, -02/14/2012 [id number] Destruction, -10/25/2011 [id number]-Yidzvirm Plate 11/26/2011 [id number] Plate 02/14/2012 [id number]-Jzgjtozk Plate 04/21/2012 46097-Jeylngrb Plate 07/14/2012 [id number]-Hdnzynqs Plate 10/25/2011 29583-Nufyeecl Plate Each Additional Insurance Providers Payer Name Payer Address Payer Phone Subscriber Number Group Number Insured Name Patient Relationship to Insured Coverage Start Date Coverage End Date Medicare National [employer] [address] [place] [phone] [id number] LINDSAY MUJICA Self - patient is the insured [facility] Others [address] [place] [address] [phone] [id number] LINDSAY MUJICA Self - patient is the insured Medical (General) History Medical History History ICD Code chicken pox measles mumps Surgical History Surgery Date(Month/Year) tubal ligation partial hysterectomy colonoscopy
--- OUTSIDE RECORDS SUMMARY | 2025-06-22 15:48 | XMS_ITS | Encounter Summary ---
Author Organization [facility] Address [address] [place] [address] Care Team Providers Care Acoustic Intelligence Specialist Name Role Phone Juvenal Valadez MD Primary Care Provider [phone] Encounter Details Date Type Department Care Team (Late st Contact Info) Description 06/05/2016 Prep for Surgery [facility] General Surgery [address] [phone] Edward Fang MD Social History Tobacco Use [...] on filedocumented in this encounter Care Teams Acoustic Intelligence Specialist Relationship Specialty Start Date End Date Juvenal Valadez MD [address] [place] [id number] PCP - General Internal Medicine 03/07/16 documented as of this encounter
== END 2025-06-22 12:24 | disposition home or self-care (01) ==
LOC: HO.HKAS 12:01
PROVIDERS: PCP Hospitalist; Visit Provider Internal Medicine Nephrology
DX: N18.31 Chronic kidney disease, stage 3a (principal); I10 Essential (primary) hypertension
CPT/HCPCS: 99214

== ENCOUNTER → 2025-06-22 12:01 | Outpatient (BNVA) | payer MEDICARE, SELFPAY | PROVIDERS: PCP Hospitalist; Visit Provider Internal Medicine Nephrology | DX: I12.9 Hypertensive chronic kidney disease with stage 1 through stage 4 chronic kidney disease, or unspecified chronic kidney disease (principal); E11.22 Type 2 diabetes mellitus with diabetic chronic kidney disease; N18.31 Chronic kidney disease, stage 3a; Z79.84 Long term (current) use of oral hypoglycemic drugs | CPT/HCPCS: 99212 ==